=== PATIENT | female | born 1985 | race Native Hawaiian/Other Pacific Islander ===

== ENCOUNTER 2017-05-14 17:32 | Emergency (ER) | payer OTHER ==
--- NOTE | 2017-05-14 18:19 | ED ---
Female Urogenital HPI - General Chief complaint: Vaginal Bleeding Stated complaint: vag bleeding/poss Time Seen by Provider: 05/14/17 17:55 Source: patient Mode of arrival: ambulatory Limitations: no limitations - History of Present Illness Initial comments: Patient is a 31-year-old female, , who presents with a chief complaint of vaginal bleeding. Patient states that she recently delivered her last child 4 months ago. Her periods return to normal immediately after her delivery. For the last 3 months she has had normal periods. Her last menstrual period was and she states that over the started normally. Over the last month though she has been having increased bleeding, that has been worse over the last 3 days. Patient does not identify any aggravating or alleviating factors. Patient states that she has not had this happen to her before. Patient does have a recent diagnosis of rheumatoid arthritis, and states that she took a home test yesterday that was positive. Patient denies any anemic symptoms. She does admit to follow odor, but denies discharge MD Complaint: vaginal bleeding Onset/Timin -: month(s) Location: suprapubic Severity: moderate Quality: cramping Consistency: constant Improves with: none Worsens with: none Last Menstrual Period: 04/13/17 Patient : Yes (+ home preg 2 days ago ) Associated Symptoms: vaginal bleeding, abdominal pain - Related Data Sexually active: Yes Home Medications Medication Instructions Recorded Confirmed Cyclobenzaprine [Flexeril] 10 mg PO BID PRN 05/14/17 05/14/17 Meloxicam [Mobic] 15 mg PO DAILY 05/14/17 05/14/17 Multivit with Calcium,Iron,Min 1 tab PO DAILY 05/14/17 05/14/17 [Women's Multivitamin] Phentermine HCl [Adipex-P] 37.5 mg PO DAILY 05/14/17 05/14/17 Allergies Allergy/AdvReac Type Severity Reaction Status Date / Time No Known Allergies Allergy Verified 05/14/17 18:15 Review of Systems ROS Statement: Those systems with pertinent positive or pertinent negative responses have been documented in the HPI. ROS Other: All systems not noted in ROS Statement are negative. Constitutional: Denies: fever, chills Eyes: Denies: vision change ENT: Denies: ear pain, throat pain Respiratory: Denies: cough, dyspnea Cardiovascular: Denies: chest pain, palpitations Endocrine: Denies: fatigue Gastrointestinal: Reports: abdominal pain. Denies: nausea, vomiting Genitourinary: Reports: abnormal menses. Denies: dysuria Skin: Denies: rash, lesions Neurological: Denies: headache, weakness Past Medical History Past Medical History: No Reported History History of Any Multi-Drug Resistant Organisms: None Reported Past Surgical History: No Surgical Hx Reported Past Psychological History: No Psychological Hx Reported Smoking Status: Never smoker Past Alcohol Use History: None Reported Past Drug Use History: None Reported General Exam Limitations: no limitations General appearance: alert, in no apparent distress Head exam: Present: atraumatic, normocephalic Eye exam: Present: normal appearance ENT exam: Present: normal exam, mucous membranes moist Neck exam: Present: normal inspection Respiratory exam: Present: normal lung sounds bilaterally. Absent: respiratory distress, wheezes Cardiovascular Exam: Present: regular rate, normal rhythm, normal heart sounds GI/Abdominal exam: Present: soft, tenderness (Patient has tenderness in the suprapubic left and right regions.). Absent: distended, guarding Rectal exam: Present: deferred Extremities exam: Present: normal inspection Back exam: Present: normal inspection Neurological exam: Present: alert, oriented X3, CN II-XII intact, normal gait Psychiatric exam: Present: normal affect, normal mood Skin exam: Present: warm, dry, intact Course Vital Signs 05/14/17 17:48 Temperature 98.2 F Pulse Rate 89 Respiratory 20 Rate Blood Pressure 148/81 O2 Sat by Pulse 98 Oximetry Medical Decision Making - Medical Decision Making Patient is a 31-year-old female, , currently by home test who delivered her last child 4 months ago who presents with a chief complaint of vaginal bleeding on initial evaluation, vital signs are stable. Patient states she is bleeding through 1 pad a ladder every hour as of today. Patient will have a pelvic exam, we'll send basic lab work and hCG. Patient will get a liter of fluid, be sent for a pelvic ultrasound. Patient recently was diagnosed with rheumatoid arthritis and is currently being treated though she does not know if she is taking methotrexate or not. 8:53 PM Evaluation of this patient is unremarkable. Her beta hCG level is 43. Patient assures me that she is in fact taking methotrexate at this time. Pelvic ultrasound shows mild amount of free fluid in cul-de-sac, otherwise it was an unremarkable study. At this time, patient is stable for discharge. She was instructed to take Motrin and Tylenol for pain. She is instructed to follow up with [employer] on Wednesday to have her hCG redrawn. She is further instructed to return to the emergency department if her symptoms worsen or change in any way. Patient was treated empirically for gonorrhea and chlamydia, cultures were sent. At this time all of her questions were answered to the best of my ability. Patient is stable and agreeable with discharge. - Lab Data Result diagrams: 05/14/17 18:20 05/14/17 18:20 Lab Results 05/14/17 05/14/17 Range/Units 18:20 18:20 WBC 8.0 (3.8-10.6) k/uL RBC 4.57 (3.80-5.40) m/uL Hgb 13.1 (11.4-16.0) gm/dL Hct 39.9 (34.0-46.0) % MCV 87.2 (80.0-100.0) fL MCH 28.7 (25.0-35.0) pg MCHC 32.9 (31.0-37.0) g/dL RDW 15.1 (11.5-15.5) % Plt Count 259 (150-450) k/uL Neutrophils % 74 % Lymphocytes % 20 % Monocytes % 4 % Eosinophils % 1 % Basophils % 0 % Neutrophils # 5.9 (1.3-7.7) k/uL Lymphocytes # 1.6 (1.0-4.8) k/uL Monocytes # 0.3 (0-1.0) k/uL Eosinophils # 0.1 (0-0.7) k/uL Basophils # 0.0 (0-0.2) k/uL Sodium 142 (137-145) mmol/L Potassium 3.8 (3.5-5.1) mmol/L Chloride 107 (98-107) mmol/L Carbon Dioxide 22 (22-30) mmol/L Anion Gap 13 mmol/L BUN 12 (7-17) mg/dL Creatinine 0.80 (0.52-1.04) mg/dL Est GFR (MDRD) Af Amer >60 (>60 ml/min/1.73 sqM) Est GFR (MDRD) Non-Af >60 (>60 ml/min/1.73 sqM) Glucose 103 H (74-99) mg/dL Calcium 9.5 (8.4-10.2) mg/dL HCG, Quant 48.8 mIU/mL Disposition Clinical Impression: Dysfunctional uterine bleeding Disposition: HOME SELF-CARE Condition: Good Instructions: Dysfunctional Uterine Bleeding (ED), Menstruation (ED) Referrals: Kalina Smyth MD [Primary Care Provider] - 1-2 days
[2017-05-14] MEDS ORDERED: SODIUM CHLORIDE 0.9% 1,000 ML IV ONE (18:21)
[2017-05-14 18:30] LABS: Basophils % (A) 0 %; CH 29.8; CHCM 34.3; Eosinophils # (A) 0.1 k/uL (0-0.7); Eosinophils % (A) 1 %; HCT 39.9 % (34.0-46.0); HDW 2.78; HGB 13.1 gm/dL (11.4-16.0); Luc % (Auto) 1; Lymphocytes # (A) 1.6 k/uL (1.0-4.8); Lymphocytes % (A) 20 %; MCH 28.7 pg (25.0-35.0); MCHC 32.9 g/dL (31.0-37.0); MCV 87.2 fL (80.0-100.0); Mean Platelet Volume 7.9; Monocytes # (A) 0.3 k/uL (0-1.0); Monocytes % (A) 4 %; Neutrophils # (A) 5.9 k/uL (1.3-7.7); Neutrophils % (A) 74 %; RBC 4.57 m/uL (3.80-5.40); RDW 15.1 % (11.5-15.5); WBC (Perox) 8.47
[2017-05-14 18:37] LABS: Anion Gap 13 mmol/L; Blood Urea Nitrogen 12 mg/dL (7-17); Calcium 9.5 mg/dL (8.4-10.2); Carbon Dioxide 22 mmol/L (22-30); Chloride 107 mmol/L (98-107); Glucose 103 mg/dL (74-99); Non-African American GFR(MDRD) >60 (>60 ml/min/1.73 sqM); Potassium 3.8 mmol/L (3.5-5.1); Sodium 142 mmol/L (137-145)
[2017-05-14] MEDS ORDERED: KETOROLAC 30 MG/ML 1 ML VIAL IVP STA (19:12)
--- NOTE | 2017-05-14 20:44 | US ---
EXAMINATION TYPE: US OB <=14 wks transvag DATE OF EXAM: 05/14/2017 COMPARISON: NONE CLINICAL HISTORY: Pain. Positive urine test today. Cramping, bleeding x one month. Starti ng passing clots. Hx of delivery of baby x 5 months ago via csection. EXAM PERFORMED: Transvaginal (TV) and Transabdominal (TA) EXAM MEASUREMENTS: GESTATIONAL AGE / DATING Dates by LMP: 5 weeks 3 days Dates by Current Scan for: No IUP seen at this time MATERNAL ANATOMY Uterus: 10.3 x 5.9 x 4.3 cm Right Ovary: 3.0 x 1.7 x 1.8 cm Left Ovary: 3.5 x 1.7 x 1.5 cm Post CDS / Adnexa: free fluid in posterior cul de sac GESTATION / SURVEY MSD: No gestational sac seen IUP: No IUP seen at this time Date of LMP: 04/06/2017 Beta HcG (if available): 48.8 IMPRESSION: NO GESTATIONAL SAC, YOLK SAC, OR EMBRYONIC POLE SEEN AT THIS TIME.
[2017-05-14] MEDS ORDERED: cefTRIAXone 250 MG VIAL IM STA (20:47)
[2017-05-14] MEDS ORDERED: AZITHROMYCIN 500 MG TAB PO STA (20:47)
[2017-05-14 21:10] VITALS: BP 142/87; PULSE 80; RESP 18; TEMP 97.8
== END 2017-05-14 21:09 | disposition home or self-care (01) ==
LOC: EC 17:32
DX: N93.8 Other specified abnormal uterine and vaginal bleeding (principal); Z79.1 Long term (current) use of non-steroidal anti-inflammatories (NSAID); Z79.899 Other long term (current) drug therapy
CPT/HCPCS: 99284; 96374; 96372; 36415; 80048; 87591; 87491; 85025; 84702; 76801; 76817; J0696; J1885

== ENCOUNTER 2017-12-02 09:15 | Emergency (ER) | payer BC, OTHER ==
[2017-12-02 09:18] VITALS: TEMP 98.1
[2017-12-02] MEDS ORDERED: KETOROLAC 60 MG/2 ML VIAL IM STA (09:29)
[2017-12-02] MEDS ORDERED: CYCLOBENZAPRINE 10MG STARTER 3 TAB BTL PO STA (09:29)
--- NOTE | 2017-12-02 09:33 | ED ---
General Adult HPI - General Chief complaint: Back Pain/Injury Stated complaint: back pain Time Seen by Provider: 12/02/17 09:19 Source: patient, RN notes reviewed Mode of arrival: ambulatory Limitations: no limitations - History of Present Illness Initial comments: Patient 32-year-old female presenting to the emergency room today with a chief complaint of increased lower back pain over the last several weeks. Denies any injury or trauma. Does admit to pain that radiates down the left leg all the way to the ankle. Patient denies any bowel or bladder incontinence retention. She denies any saddle anesthesia. Patient states pain is worse with certain movements into [place] of ambulation. Patient states more comfortable when she is lying still but says she has had a difficult time falling asleep due to the pain. Patient denies any other complaints. Says she did not take anything for the pain this morning. Patient denies any recent fever, chills, shortness of breath, chest pain, abdominal pain, nausea or vomiting, dysuria or hematuria, constipation or diarrhea, headaches or visual changes, or any other complaints. - Related Data Home Medications Medication Instructions Recorded Confirmed Cyclobenzaprine [Flexeril] 10 mg PO BID PRN 05/14/17 05/14/17 Meloxicam [Mobic] 15 mg PO DAILY 05/14/17 05/14/17 Multivit with Calcium,Iron,Min 1 tab PO DAILY 05/14/17 05/14/17 [Women's Multivitamin] Phentermine HCl [Adipex-P] 37.5 mg PO DAILY 05/14/17 05/14/17 Previous Rx's Medication Instructions Recorded Cyclobenzaprine [Flexeril] 10 mg PO TID #20 tab 12/02/17 Dexamethasone 0.75 mg PO DIRECTED #12 tablet 12/02/17 Ibuprofen [Motrin] 600 mg PO Q6HR PRN #40 day 12/02/17 Allergies Allergy/AdvReac Type Severity Reaction Status Date / Time No Known Allergies Allergy Verified 12/02/17 09:18 Review of Systems ROS Statement: Those systems with pertinent positive or pertinent negative responses have been documented in the HPI. ROS Other: All systems not noted in ROS Statement are negative. Past Medical History Past Medical History: No Reported History History of Any Multi-Drug Resistant Organisms: None Reported Past Surgical History: No Surgical Hx Reported Past Psychological History: No Psychological Hx Reported Smoking Status: Current every day smoker Past Alcohol Use History: None Reported Past Drug Use History: None Reported General Exam - General Exam Comments Initial Comments: General: The patient is awake and alert, in no distress, and does not appear acutely ill. Eye: Pupils are equal, round and reactive to light, extra-ocular movements are intact. No nystagmus. There is normal conjunctiva bilaterally. No signs of icterus. Ears, nose, mouth and throat: There are moist mucous membranes and no oral lesions. Neck: The neck is supple, there is no tenderness or JVD. Cardiovascular: There is a regular rate and rhythm. No murmur, rub or gallop is appreciated. Respiratory: Lungs are clear to auscultation, respirations are non-labored, breath sounds are equal. No wheezes, stridor, rales, or rhonchi. Musculoskeletal: Normal ROM. Patient pain reproduced with bending here in the emergency room. Patient mild tenderness midline lower lumbar with increased tenderness paravertebrally on the left side of the lower lumbar spine. Strength 5/5. Sensation intact. Pulses equal bilaterally 2+. Neurological: A&O x 3. CN II-XII intact, There are no obvious motor or sensory deficits. Coordination appears grossly intact. Speech is normal. Skin: Skin is warm and dry and no rashes or lesions are noted. Psychiatric: Cooperative, appropriate mood & affect, normal judgment. Limitations: no limitations Course Vital Signs 12/02/17 09:17 Temperature 98.1 F Pulse Rate 90 Respiratory 20 Rate Blood Pressure 117/71 O2 Sat by Pulse 100 Oximetry Medical Decision Making - Medical Decision Making Patient denies any injury or trauma. Presenting for lower back pain. Patient states worse with movements. No bowel or bladder incontinence. No saddle anesthesia. Options of x-rays were discussed. Options of following up with family physician for MRI was discussed at this time patient agreeable for pain shot here in emergency room. Will be given Toradol also Flexeril starter pack. Will be treated with anti-inflammatories, muscle relaxers, and a steroid Dosepak. Advised that muscle relaxer may make her drowsy. Advised about the family physician next 2 days. Advised return if symptoms increase or worsen Disposition Clinical Impression: Acute low back pain Disposition: HOME SELF-CARE Condition: Good Instructions: Acute Low Back Pain (ED) Additional Instructions: Please use medication as discussed. Please follow-up with family doctor in the next 2 days of symptoms have not improved. Please return to emergency room if the symptoms increase or worsen or for any other concerns. Prescriptions: Cyclobenzaprine [Flexeril] 10 mg PO TID #20 tab Dexamethasone 0.75 mg PO DIRECTED #12 tablet Ibuprofen [Motrin] 600 mg PO Q6HR PRN #40 day PRN Reason: Pain Referrals: Kalina Smyth MD [Primary Care Provider] - 1-2 days Time of Disposition: 09:32
[2017-12-02 09:54] VITALS: BP 123/74; PULSE 77; RESP 18
== END 2017-12-02 09:54 | disposition home or self-care (01) ==
LOC: EC 09:15
DX: M54.5 Low back pain (principal); F17.200 Nicotine dependence, unspecified, uncomplicated; Z79.1 Long term (current) use of non-steroidal anti-inflammatories (NSAID); Z79.899 Other long term (current) drug therapy
CPT/HCPCS: 99283; J1885

== ENCOUNTER 2017-12-05 11:40 | Emergency (ER) | payer BC ==
[2017-12-05 11:45] VITALS: BP 121/76; PULSE 96; RESP 20; TEMP 98.3
--- NOTE | 2017-12-05 12:10 | ED ---
Lower Extremity Injury HPI - General Chief Complaint: Extremity Injury, Lower Stated Complaint: revisit Left leg swelling Time Seen by Provider: 12/05/17 12:00 Source: patient, RN notes reviewed, old records reviewed Mode of arrival: ambulatory Limitations: no limitations - History of Present Illness Initial Comments: This patient is a 32-year-old female presents to emergency Department chief complaint of left lower extremity pain and swelling. Patient reports that she was started on steroids and muscle relaxers which initially started as lower back pain. She reports that her back pain as a result that she complains of pain in her left calf. She reports that she has ankle pain and swelling. Patient relates that she is a smoker. She does not take control pills. She's had no history of blood clots. Patient states that she has pain behind the knee. She also reports it's difficult to bear weight over her ankle and knee. She denies any specific injury to cause the symptoms. 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 She states that she's been having a difficult time with any walking. Patient reports she followed up with her primary care doctor and they reported they live in a can do is referred to an orthopedic. She had no x-rays or any other studies at this time. - Related Data Previous Rx's Medication Instructions Recorded Cyclobenzaprine [Flexeril] 10 mg PO TID #20 tab 12/02/17 Dexamethasone 0.75 mg PO DIRECTED #12 tablet 12/02/17 Ibuprofen [Motrin] 600 mg PO Q6HR PRN #40 day 12/02/17 Ibuprofen [Motrin] 600 mg PO Q8HR PRN #20 tab 12/05/17 traMADol HCl [Ultram] 50 mg PO Q6H PRN #15 tab 12/05/17 Allergies Allergy/AdvReac Type Severity Reaction Status Date / Time No Known Allergies Allergy Verified 12/05/17 11:45 Review of Systems ROS Statement: Those systems with pertinent positive or pertinent negative responses have been documented in the HPI. ROS Other: All systems not noted in ROS Statement are negative. Past Medical History Past Medical History: No Reported History History of Any Multi-Drug Resistant Organisms: None Reported Past Surgical History: Section, Cholecystectomy Past Psychological History: No Psychological Hx Reported Smoking Status: Current every day smoker Past Alcohol Use History: Occasional Past Drug Use History: None Reported General Exam - General Exam Comments Initial Comments: Patient's 32-year-old female. Alert and oriented. No distress. Limitations: no limitations General appearance: alert, in no apparent distress Head exam: Present: atraumatic, normocephalic, normal inspection Eye exam: Present: normal appearance, PERRL, EOMI. Absent: scleral icterus, conjunctival injection, periorbital swelling ENT exam: Present: normal exam, mucous membranes moist Neck exam: Present: normal inspection. Absent: tenderness, meningismus, lymphadenopathy Respiratory exam: Present: normal lung sounds bilaterally. Absent: respiratory distress, wheezes, rales, rhonchi, stridor Cardiovascular Exam: Present: regular rate, normal rhythm, normal heart sounds. Absent: systolic murmur, diastolic murmur, rubs, gallop, clicks Left Upper Leg exam: Present: normal inspection, full ROM Knee exam: Present: normal inspection, tenderness (Tenderness to palpation over the medial aspect of the knee. She reports pain with full extension.). Absent : full ROM ( reports that she's unable to fully extend the knee due to pain.) Lower Leg exam: Present: normal inspection, full ROM, tenderness (Tenderness over the posterior calf and popliteal fossa.) Ankle exam: Present: normal inspection, full ROM Foot/Toe exam: Present: normal inspection, full ROM Neurovascular tendon exam: Present: no vascular compromise Gait: observed and limited by pain Back exam: Present: normal inspection Neurological exam: Present: alert, oriented X3, CN II-XII intact Psychiatric exam: Present: normal affect, normal mood Course Vital Signs 12/05/17 11:42 Temperature 98.3 F Pulse Rate 96 Respiratory 20 Rate Blood Pressure 121/76 O2 Sat by Pulse 100 Oximetry Medical Decision Making - Medical Decision Making 32-year-old feel presents emergency Department chief complaint of left leg pain. She reports posterior calf pain. Worse with ambulation. Patient's ultrasound was reviewed and negative for DVT. X-rays of the knee and ankle where she complains of most pain are also negative for any acute process. She' s been started, also flexes and steroids from her primary care provider. Discussed adding anti-inflammatory medication such as Motrin and will write patient a short prescription for pain medication. We'll put the patient in [place] wrap as well for support and compression of the ankle. Discussed following up with orthopedic if symptoms are continuing to persist. All questions answered and return parameters were discussed. - Radiology Data Radiology results: report reviewed Venous Doppler study is negative for DVT. The x-ray was reviewed and unremarkable. Ankle x-ray was reviewed and also unremarkable. No evidence of osseous changes. Disposition Clinical Impression: Ankle pain, left, Knee pain, left Disposition: HOME SELF-CARE Condition: Good Instructions: Knee Pain (ED) Additional Instructions: Patient advised to take anti-inflammatory medication, use the pain medicine as directed. Follow-up with orthopedic. Wear the [place] wrap. Rest, ice, elevate extremity. Prescriptions: Ibuprofen [Motrin] 600 mg PO Q8HR PRN #20 tab PRN Reason: Pain traMADol HCl [Ultram] 50 mg PO Q6H PRN #15 tab PRN Reason: Pain Referrals: Kalina Smyth MD [REFERRING] - 1-2 days Lary Hamlin MD [STAFF PHYSICIAN] - 1-2 days Papito Becker MD [STAFF PHYSICIAN] - 1-2 days Yariel Verduzco MD [STAFF PHYSICIAN] - 1-2 days Time of Disposition: 13:08
--- NOTE | 2017-12-05 13:03 | US ---
EXAMINATION TYPE: US venous doppler duplex LE LT DATE OF EXAM: 12/05/2017 12:34 PM COMPARISON: NONE CLINICAL HISTORY: Pain. Left leg pain x couple weeks SIDE PERFORMED: Left TECHNIQUE: The lower extremity deep venous system is examined utilizing real time linear array sonog jessica with graded compression, doppler sonography and color-flow sonography. VESSELS IMAGED: External Iliac Vein (EIV) Common Femoral Vein Deep Femoral Vein Greater Saphenous Vein * Femoral Vein Popliteal Vein Small Saphenous Vein * Proximal Calf Veins (* superficial vessels) Left Leg: Appears negative for DVT No popliteal fossa lesion is seen. IMPRESSION: THIS EXAMINATION IS NEGATIVE FOR DVT IN THE LEFT LEG.
--- NOTE | 2017-12-05 13:04 | XR ---
EXAMINATION TYPE: XR ankle complete LT , 3 VIEWS DATE OF EXAM ORDERED: 12/05/2017 HISTORY: Pain. COMPARISON: None. FINDINGS: No fracture, dislocation or ankle joint effusion is seen. IMPRESSION: NORMAL LEFT ANKLE.
--- NOTE | 2017-12-05 13:05 | XR ---
EXAMINATION TYPE: XR knee complete LT , 3 VIEWS DATE OF EXAM ORDERED: 12/05/2017 HISTORY: Pain. COMPARISON: None. FINDINGS: No fracture, dislocation or knee joint effusion is seen. The joint spaces are reasonably w ell-maintained. IMPRESSION: NO ACUTE OSSEOUS LESION.
== END 2017-12-05 13:20 | disposition home or self-care (01) ==
LOC: EC 11:40
DX: M25.572 Pain in left ankle and joints of left foot (principal); M25.562 Pain in left knee; F17.200 Nicotine dependence, unspecified, uncomplicated
CPT/HCPCS: 99284

== ENCOUNTER → 2018-11-04 | Outpatient (CLI) | payer BC, OTHER ==
[2018-11-04 15:34] LABS: Appearance,Urine Cloudy (Clear); Bacteria,Urine Occasional /hpf; Bilirubin,Urine Negative (Negative); Blood,Urine Negative (Negative); Budding Yeast,Urine Few /hpf; Color,Urine Yellow; Glucose,Urine (UA) Negative (Negative); Hyaline Casts,Urine 2 /lpf (0-2); Ketones,Urine Negative (Negative); Leukocyte Esterase,Urine Large (Negative); Mucus,Urine Rare /hpf; Nitrite,Urine Negative (Negative); PH, Urine 7.5 (5.0-8.0); Protein,Urine 1+ (Negative); RBC,Urine 10 /hpf (0-5); Specific Gravity,Urine 1.011 (1.001-1.035); Squamous Epithelial Cell,Urine 4 /hpf (0-4); Urobilinogen,Urine <2.0 mg/dL (<2.0); WBC,Urine >182 /hpf (0-5)
[2018-11-04 15:47] LABS: Calcium 9.3 mg/dL (8.4-10.2); Potassium 4.3 mmol/L (3.5-5.1)
[2018-11-04 16:38] LABS: Anisocytosis Slight; Basophils % (A) 1 %; Eosinophils # (A) 0.1 k/uL (0-0.7); Eosinophils % (A) 1 %; HGB 9.7 gm/dL (11.4-16.0); Hypochromasia Slight; Lymphocytes # (A) 1.3 k/uL (1.0-4.8); Lymphocytes % (A) 26 %; MCH 24.8 pg (25.0-35.0); MCHC 29.5 g/dL (31.0-37.0); MCV 84.3 fL (80.0-100.0); Monocytes # (A) 0.2 k/uL (0-1.0); Monocytes % (A) 4 %; Neutrophils # (A) 3.4 k/uL (1.3-7.7); Neutrophils % (A) 66 %; Platelet Count 537 k/uL (150-450); RBC 3.92 m/uL (3.80-5.40); RDW 16.8 % (11.5-15.5); WBC 5.1 k/uL (3.8-10.6)
== END ==
LOC: LABPAT 14:53
PROVIDERS: ATTEND Urology
DX: Z01.812 Encounter for preprocedural laboratory examination (principal); N20.1 Calculus of ureter
CPT/HCPCS: 80048; 81001; 85025; 87077; 87086; 87186

== ENCOUNTER 2018-11-24 08:57 | Day surgery (SDC) | payer OTHER ==
[~2018-11-24 08:57] MED LIST: CIPROFLOXACIN/DEXTROSE PMX 400 MG in DEXTROSE/WATER 1 200ML.BAG IVPB ONE; DEXAMETHASONE SOD PHOSPHATE 10 MG/ML 1 ML VIAL IV ONE; HYDROmorphone 0.5 MG/0.5 ML SYRINGE IVP PRN; LACTATED RINGERS 1,000 ML IV SCH; LIDOCAINE 1% 20 ML VIAL (10MG/ML) FOR IV START INTRADERMA PRN; MIDAZOLAM 2 MG/2 ML VIAL IV PRN; ONDANSETRON 4 MG/2 ML VIAL IVP ONE; SCOPOLAMINE 1.5MG/72HR PATCH TRANSDERM ONE
--- NOTE | 2018-11-24 09:35 | XR ---
EXAMINATION TYPE: XR KUB DATE OF EXAM: 11/24/2018 9:25 AM CLINICAL HISTORY: Kidney stones, presurgical study. TECHNIQUE: Two Upright KUB images of the abdomen are obtained. COMPARISON: None. FINDINGS: There is left double-J ureter stent. There is 8 mm calculus along proximal aspect of stent likely at UVJ. There is 4 mm calculus lateral to this at L2 level mid to lower pole level left kidney . There are suspected roughly 10 small calculi scattered throughout the right kidney from T12-L1 disc space to the L2-L3 disc space. Overlying fecal material is present in colon. There is overall nonobstructive bowel gas pattern. Osse ous structures are intact. Cholecystectomy clips are noted. IMPRESSION: Bilateral nephrolithiasis with left-sided 8 mm calculus along proximal stent near level o f UPJ.
[2018-11-24 11:20] VITALS: RESP 16
[2018-11-24] MEDS ORDERED: PROPOFOL 10 MG/ML 20 ML VIAL IV ONE (12:01)
[2018-11-24] MEDS ORDERED: LIDOCAINE 1% INJ 10MG/ML (20 ML MDV) ONE (12:01)
[2018-11-24] MEDS ORDERED: NEOSTIGMINE 1 MG/ML 10 ML VIAL ONE (12:01)
[2018-11-24] MEDS ORDERED: GLYCOPYRROLATE 0.2 MG/ML 2 ML VIAL ONE (12:01)
[2018-11-24] MEDS ORDERED: fentaNYL (PF) 50 MCG/ML 2 ML AMP ONE (12:01)
[2018-11-24] MEDS ORDERED: MIDAZOLAM 2 MG/2 ML VIAL ONE (12:01)
[2018-11-24] MEDS ORDERED: ROCURONIUM BROMIDE 10 MG/ML 10 ML VIAL IV ONE (12:01)
--- NOTE | 2018-11-24 13:16 | P.OP ---
Date of Procedure: 11/24/18 Preoperative Diagnosis: Left ureteral calculus, left renal calculi Postoperative Diagnosis: Same Procedure(s) Performed: Cystoscopy, left ureteral stent removal, left ureteroscopy with Holmium laser lithotripsy Anesthesia: KEEGAN Surgeon: Jean Carlos Nj Estimated Blood Loss (ml): 0 IV fluids (ml): 650 Pathology: none sent Condition: stable Disposition: PACU Indications for Procedure: The patient is a 32-year-old woman hospitalized earlier this month with acute left pyelonephritis complicated by a 7 mm left proximal ureteral calculus. Additionally, the computed tomography scan showed approximately 9 left renal calculi. She underwent left ureteral stent insertion on 09/02/2018. A urine culture showed an E. coli UTI, for which she has been treated with antibiotics. She now comes for cystoscopy, left ureteral stent removal, left ureteroscopy with Holmium laser lithotripsy. A preoperative urine culture again showed an E. coli UTI, and Keflex was prescribed. Operative Findings: 4 x 8 mm left proximal ureteral calculus, fragmented completely. Several small left renal calculi were identified and fragmented. Description of Procedure: The patient was taken to the operating room and placed in the dorsolithotomy position, with legs supported in Jimmie stirrups. The external genitalia was prepped and draped sterilely. The 30 lens was used to introduce the 22-Micronesian Stortz cystoscopic sheath through the urethra and into the bladder under direct vision. The bladder was examined in its entirety. No abnormalities were seen. The distal end of the left ureteral stent was removed along with the cystoscope. The cystoscope was replaced into the bladder. A 0.038 inch Glidewire was passed through the cystoscope. The left ureteral orifice was cannulated, and the Glidewire was advanced beyond the calculus and up to the left renal pelvis. The cystoscope was removed, and an 11/13-Micronesian ureteral access catheter was passed over the wire, up to the mid ureter. The mini flexible ureteroscope was passed through the ureteral access catheter sheath and advanced under direct vision, up to the calculus. Ureteral dilation in this area was noted. The 200 micron Holmium laser probe was passed through the ureteroscope, and lithotripsy was performed using a dusting technique. This was continued until there were no calculus fragments exceeding the size of the laser tip. The ureteroscope was then advanced into the kidney, and several small calculi were fragmented. Once all calculi had been treated, the ureteroscope was slowly withdrawn under direct vision along with the ureteral access catheter sheath. There was no evidence of ureteral trauma, and no calculus fragments were taken within the ureter. The patient tolerated the procedure well and was taken to the recovery room in stable condition.
[2018-11-24 13:26] VITALS: TEMP 98.5
[2018-11-24] MEDS ORDERED: LACTATED RINGERS 1,000 ML IV ONE (14:08)
[2018-11-24] MEDS ORDERED: ACETAMINOPHEN TAB 325 MG TAB PO ONE (14:29)
--- NOTE | 2018-11-24 14:32 | FL ---
EXAMINATION TYPE: FL guidance operating room DATE OF EXAM: 11/24/2018 CLINICAL HISTORY: Left kidney stone. TECHNIQUE: Fluoroscopy. COMPARISON: None. FINDINGS: Fluoroscopic guidance was provided during lithotripsy procedure performed by Dr. Nj. A total of approximately 5 seconds of fluoroscopic time was utilized during the procedure and single spot intraoperative image is acquired. Single image acquired shows advancement of guidewire through t he catheter in left ureter. IMPRESSION: As Above.
[2018-11-24 14:37] VITALS: BP 149/91; PULSE 88
== END 2018-11-24 14:51 | disposition home or self-care (01) ==
LOC: OR 08:57
PROVIDERS: ATTEND Urology
DX: N20.2 Calculus of kidney with calculus of ureter (principal); T83.511A Infection and inflammatory reaction due to indwelling urethral catheter, initial encounter; Z79.3 Long term (current) use of hormonal contraceptives; F17.210 Nicotine dependence, cigarettes, uncomplicated; Z90.49 Acquired absence of other specified parts of digestive tract; Z87.440 Personal history of urinary (tract) infections
CPT/HCPCS: 81025; 74018; 52353; J2250; J1100; J2710; J2405; J2001; J3010; J0744; J2704

== ENCOUNTER 2020-05-13 03:06 | Observation (INO) | payer OTHER ==
--- NOTE | 2020-05-13 03:39 | ED ---
Female Urogenital HPI - General Chief complaint: Vaginal Bleeding Stated complaint: vaginal bleeding Time Seen by Provider: 05/13/20 03:07 Source: patient Mode of arrival: ambulatory - History of Present Illness Initial comments: Yudith is a female whose last menstrual period was in February 09, 2020. Patient presents the ER today for evaluation of 2 weeks of vaginal bleeding and pelvic discomfort. Patient states that she had not taken a test or establish care but approximately 2 weeks ago began having cramping and passing large clots and believes she passed products of conception. She states that vaginal bleeding got better for a couple of days but worsened today which prompted her to seek care at an outside emergency Department. Patient reports that earlier today she is soaking one to 2 pads per hour. Evaluation that emergency department revealed a closed cervical os with blood clots in the vaginal canal. Due to not having gynecology available for consult they recommended the patient be transferred to our facility for further evaluation. Patient states that this wasn't intended with her partner she has no concern for sexual transmitted infections. - Related Data Home Medications Medication Instructions Recorded Confirmed Medroxyprogesterone Acetate 150 mg IM DIRECTED 11/09/18 11/24/18 [Depo-Provera] Allergies Allergy/AdvReac Type Severity Reaction Status Date / Time No Known Allergies Allergy Verified 05/13/20 03:12 Review of Systems ROS Statement: Those systems with pertinent positive or pertinent negative responses have been documented in the HPI. ROS Other: All systems not noted in ROS Statement are negative. Past Medical History Past Medical History: No Reported History Additional Past Medical History / Comment(s): Hx of and current kidney stones. History of Any Multi-Drug Resistant Organisms: None Reported Past Surgical History: Section, Cholecystectomy Past Anesthesia/Blood Transfusion Reactions: No Reported Reaction Past Psychological History: No Psychological Hx Reported Smoking Status: Current every day smoker Past Alcohol Use History: None Reported Past Drug Use History: None Reported - Past Family History Mother Family Medical History: No Reported History General Exam - General Exam Comments Initial Comments: Physical Exam GENERAL: Patient is well-developed and well-nourished. Patient is nontoxic and well-hydrated and is in no distress. HENT: Normocephalic, Atraumatic. EYES: PERRL, EOMI No conjunctival pallor PULMONARY: Unlabored respirations. CARDIOVASCULAR: RRR Warm and well perfused extremities ABDOMEN: Non-distended SKIN: No rashes or bruising : Deferred - pelvic exam performed at previous ER NEUROLOGIC: Alert and oriented Normal speech Normal gait MUSCULOSKELETAL: Moving all extremities with no apparent injury PSYCHIATRIC: Appropriate situational depression, crying Course Vital Signs 05/13/20 03:08 Temperature 98.1 F Pulse Rate 96 Respiratory 18 Rate Blood Pressure 142/92 O2 Sat by Pulse 100 Oximetry Medical Decision Making - Medical Decision Making Patient care was discussed with transferring physician, he performed a pelvic exam which did reveal dark blood in the vaginal canal with a closed os, he did not perform any further testing due to not having gynecology available consult History is obtained from the patient 34-year-old female with last menstrual period of February 08 resenting with 2 weeks of vaginal bleeding which has acutely worsened today. Patient does believe she is arty passed products of conception approximately 2 weeks ago when she was nearly 12 weeks . CBC and CMP are relatively unremarkable patient is not anemic at this time Patient's beta hCG is still elevated at >3900 Ultrasound is concerning for a missed AB Patient has persistent cramping discomfort was treated with morphine with minimal improvement therefore given a small dose of Dilaudid Patient care was discussed with Dr. Calvo who recommends patient patient in observation for a D&C later today, this plan was discussed with the patient who is agreeable At the time of admission patient's ABO blood type is pending and no previous were available in the computer for confirmation. Need for Olena will be followed up by Dr. Calvo. - Lab Data Result diagrams: 05/13/20 03:20 05/13/20 03:20 Lab Results 05/13/20 05/13/20 05/13/20 Range/Units 03:20 03:20 03:20 WBC 10.5 (3.8-10.6) k/uL RBC 4.77 (3.80-5.40) m/uL Hgb 13.1 (11.4-16.0) gm/dL Hct 40.9 (34.0-46.0) % MCV 85.7 (80.0-100.0) fL MCH 27.5 (25.0-35.0) pg MCHC 32.1 (31.0-37.0) g/dL RDW 14.8 (11.5-15.5) % Plt Count 275 (150-450) k/uL Neutrophils % 71 % Lymphocytes % 23 % Monocytes % 4 % Eosinophils % 1 % Basophils % 0 % Neutrophils # 7.4 (1.3-7.7) k/uL Lymphocytes # 2.4 (1.0-4.8) k/uL Monocytes # 0.4 (0-1.0) k/uL Eosinophils # 0.1 (0-0.7) k/uL Basophils # 0.0 (0-0.2) k/uL PT 10.2 (9.0-12.0) sec INR 1.0 (<1.2) APTT 25.5 (22.0-30.0) sec Sodium (137-145) mmol/L Potassium (3.5-5.1) mmol/L Chloride (98-107) mmol/L Carbon Dioxide (22-30) mmol/L Anion Gap mmol/L BUN (7-17) mg/dL Creatinine (0.52-1.04) mg/dL Est GFR (CKD-EPI)AfAm (>60 ml/min/1.73 sqM) Est GFR (CKD-EPI)NonAf (>60 ml/min/1.73 sqM) Glucose (74-99) mg/dL Plasma Lactic Acid Gal (0.7-2.0) mmol/L Calcium (8.4-10.2) mg/dL Total Bilirubin (0.2-1.3) mg/dL AST (14-36) U/L ALT (4-34) U/L Alkaline Phosphatase (38-126) U/L Total Protein (6.3-8.2) g/dL Albumin (3.5-5.0) g/dL HCG, Quant mIU/mL Urine Color Red Urine Appearance Bloody H (Clear) Urine RBC >182 H (0-5) /hpf Urine WBC >182 H (0-5) /hpf Urine Bacteria Many H (None) /hpf Urine Mucus Many H (None) /hpf 05/13/20 05/13/20 Range/Units 03:20 03:20 WBC (3.8-10.6) k/uL RBC (3.80-5.40) m/uL Hgb (11.4-16.0) gm/dL Hct (34.0-46.0) % MCV (80.0-100.0) fL MCH (25.0-35.0) pg MCHC (31.0-37.0) g/dL RDW (11.5-15.5) % Plt Count (150-450) k/uL Neutrophils % % Lymphocytes % % Monocytes % % Eosinophils % % Basophils % % Neutrophils # (1.3-7.7) k/uL Lymphocytes # (1.0-4.8) k/uL Monocytes # (0-1.0) k/uL Eosinophils # (0-0.7) k/uL Basophils # (0-0.2) k/uL PT (9.0-12.0) sec INR (<1.2) APTT (22.0-30.0) sec Sodium 136 L (137-145) mmol/L Potassium 3.8 (3.5-5.1) mmol/L Chloride 102 (98-107) mmol/L Carbon Dioxide 26 (22-30) mmol/L Anion Gap 8 mmol/L BUN 16 (7-17) mg/dL Creatinine 1.34 H (0.52-1.04) mg/dL Est GFR (CKD-EPI)AfAm 59 (>60 ml/min/1.73 sqM) Est GFR (CKD-EPI)NonAf 51 (>60 ml/min/1.73 sqM) Glucose 109 H (74-99) mg/dL Plasma Lactic Acid Gal 0.7 (0.7-2.0) mmol/L Calcium 9.8 (8.4-10.2) mg/dL Total Bilirubin 0.4 (0.2-1.3) mg/dL AST 33 (14-36) U/L ALT 33 (4-34) U/L Alkaline Phosphatase 109 (38-126) U/L Total Protein 7.9 (6.3-8.2) g/dL Albumin 5.0 (3.5-5.0) g/dL HCG, Quant 3908.0 mIU/mL Urine Color Urine Appearance (Clear) Urine RBC (0-5) /hpf Urine WBC (0-5) /hpf Urine Bacteria (None) /hpf Urine Mucus (None) /hpf Disposition Clinical Impression: Missed Disposition: ADMITTED IP TO THIS HOSP Condition: Stable Is patient prescribed a controlled substance at d/c from ED?: No Referrals: None,Stated [Primary Care Provider] - 1-2 days
[2020-05-13 03:47] LABS: Basophils % (A) 0 %; Eosinophils # (A) 0.1 k/uL (0-0.7); Eosinophils % (A) 1 %; HCT 40.9 % (34.0-46.0); HGB 13.1 gm/dL (11.4-16.0); Lymphocytes # (A) 2.4 k/uL (1.0-4.8); Lymphocytes % (A) 23 %; MCH 27.5 pg (25.0-35.0); MCHC 32.1 g/dL (31.0-37.0); MCV 85.7 fL (80.0-100.0); Mean Platelet Volume 7.7; Monocytes # (A) 0.4 k/uL (0-1.0); Monocytes % (A) 4 %; Neutrophils # (A) 7.4 k/uL (1.3-7.7); Neutrophils % (A) 71 %; Platelet Count 275 k/uL (150-450); RBC 4.77 m/uL (3.80-5.40); RDW 14.8 % (11.5-15.5); WBC 10.5 k/uL (3.8-10.6)
[2020-05-13 03:50] LABS: Appearance,Urine Bloody (Clear); Color,Urine Red
[2020-05-13 04:00] LABS: Bacteria,Urine Many /hpf; Mucus,Urine Many /hpf; RBC,Urine >182 /hpf (0-5); WBC,Urine >182 /hpf (0-5)
[2020-05-13 04:02] LABS: Partial Thromboplastin Time 25.5 sec (22.0-30.0); Prothrombin Time 10.2 sec (9.0-12.0)
[2020-05-13 04:05] LABS: Calcium 9.8 mg/dL (8.4-10.2); Potassium 3.8 mmol/L (3.5-5.1); Total Bilirubin 0.4 mg/dL (0.2-1.3); Total Protein 7.9 g/dL (6.3-8.2)
[2020-05-13] MEDS ORDERED: MORPHINE SULFATE 4 MG/ML SYRINGE IVP STA (04:12)
--- NOTE | 2020-05-13 04:38 | US ---
EXAMINATION TYPE: Transabdominal DATE OF EXAM: 05/13/2020 4:09 AM COMPARISON: NONE CLINICAL HISTORY: bleeding s/p second trimester ab last week. Bleeding and cramping x 1 to 2 weeks th at has gotten worse in the past day, 6, para 5, history of . EXAM PERFORMED: Transabdominal (TA) EXAM MEASUREMENTS: GESTATIONAL AGE / DATING Physician Established: Not established yet Dates by LMP: (13 weeks/3 days) EDC: 11/15/2020 Dates by First Scan: This is 1st scan Dates by Current Scan for: No pole seen at this time MATERNAL ANATOMY Uterus: 11.0 x 6.1 x 6.5cm, anteverted Endometrium: thickened at 1.9cm, heterogeneous with increased vascularity and 3.9 x 1.4 x 2.1cm anech oic area seen ? possible gestational sac vs. blood vs. other Right Ovary: 2.5 x 1.7 x 3.0cm Left Ovary: 2.6 x 1.6 x 2.2cm Post CDS / Adnexa: wnl Presence of free fluid: no Presence of corpus luteal cyst: not seen Presence of subchorionic bleed: no GESTATION / SURVEY No pole or yolk sac seen possible MSD: 2.5cm (7 weeks/1 days) Date of LMP: 02/09/2020 Beta HcG (if available): Not available at time of exam IMPRESSION: There is irregular intrauterine fluid collection. No yolk sac or pole seen. No adnexal mass or free fluid. Findings are consistent with blighted ovum and incomplete .
[2020-05-13] MEDS ORDERED: NALOXONE 0.4 MG/ML 1 ML VIAL IV PRN (04:46)
[2020-05-13] MEDS ORDERED: MORPHINE SULFATE 4 MG/ML SYRINGE IV PRN (04:46)
[2020-05-13] MEDS ORDERED: ONDANSETRON 4 MG/2 ML VIAL IVP PRN (04:46)
[2020-05-13] MEDS ORDERED: HYDROmorphone 0.5 MG/0.5 ML SYRINGE IVP STA (04:50)
[2020-05-13] MEDS ORDERED: SODIUM CHLORIDE 0.9% 1,000 ML IV SCH (05:00)
--- NOTE | 2020-05-13 08:29 | P.OBCN ---
History of Present Illness Consult date: 05/13/20 Reason for consult: other (Early loss vaginal bleeding, elevated pain) Chief complaint: Missed AB versus blighted ovum History of present illness: This is a 34-year-old 3 para 2001 with unknown last menstrual period of February 08. Patient states she has been bleeding for about 2 weeks and noted increased cramping and passage of clots so she presented to the emergency department last evening. Quantitative beta hCG was noted to be 3908, blood type is pending. Patient is complaining of pelvic cramping. Patient states this wasn't unintended . Patient has 2 prior sections. Ultrasound was performed in the emergency department, thickened endometrial lining of 1.9 cm with questionable blighted ovum versus incomplete AB. Review of Systems Constitutional: Denies fatigue, Denies fever Ears, nose, mouth and throat: Denies headache Cardiovascular: Reports leg edema Respiratory: Denies dyspnea Genitourinary: Reports abnormal vaginal bleeding, Reports pelvic pain, Reports Past Medical History Past Medical History: No Reported History Additional Past Medical History / Comment(s): Hx of and current kidney stones. History of Any Multi-Drug Resistant Organisms: None Reported Past Surgical History: Section, Cholecystectomy Past Anesthesia/Blood Transfusion Reactions: No Reported Reaction Past Psychological History: No Psychological Hx Reported Smoking Status: Current every day smoker Past Alcohol Use History: None Reported Past Drug Use History: None Reported - Past Family History Mother Family Medical History: No Reported History Medications and Allergies Home Medications Medication Instructions Recorded Confirmed Type No Known Home Medications 05/13/20 05/13/20 History Allergies Allergy/AdvReac Type Severity Reaction Status Date / Time No Known Allergies Allergy Verified 05/13/20 06:36 Exam Osteopathic Statement: *. No significant issues noted on an osteopathic structural exam other than those noted in the History and Physical/Consult. Vital Signs Temp Pulse Pulse Resp BP BP Pulse Ox 05/13/20 07:38 97.9 F 95 16 115/73 99 05/13/20 04:57 98.1 F 92 17 128/84 97 05/13/20 03:08 98.1 F 96 18 142/92 100 Intake and Output 05/12/20 05/13/20 05/13/20 22:59 06:59 14:59 Other: Voiding Method Toilet # Voids 1 Weight 65.771 kg Targeted physical exam is performed and stay in general this a well-nourished well-developed female in obvious situational depression and tearful, breathing is noted to nonlabored, heart has regular rhythm, abdomen is soft, pelvic exam is deferred at this time. Results Result Diagrams: 05/13/20 03:20 05/13/20 03:20 Abnormal Lab Results - Last 24 Hours (Table) 05/13/20 05/13/20 Range/Units 03:20 03:20 Sodium 136 L (137-145) mmol/L Creatinine 1.34 H (0.52-1.04) mg/dL Glucose 109 H (74-99) mg/dL Urine Appearance Bloody H (Clear) Urine RBC >182 H (0-5) /hpf Urine WBC >182 H (0-5) /hpf Urine Bacteria Many H (None) /hpf Urine Mucus Many H (None) /hpf Assessment and Plan (1) Incomplete Current Visit: Yes Status: Acute Code(s): O03.4 - INCOMPLETE SPONTANEOUS WITHOUT COMPLICATION SNOMED Code(s): 469792366 Plan: Patient is counseled on need for suction dilation and curettage given her level of discomfort, and vaginal bleeding. Retained products of conception are noted on ultrasound personally 3 cm. Patient states understanding and is tearful but wishes to proceed. We'll plan suction dilation and curettage, will obtain blood typing prior to her discharge today. Surgery is reviewed all questions are answered.
[2020-05-13 09:16] VITALS: TEMP 98.8
[2020-05-13] MEDS ORDERED: DEXAMETHASONE SOD PHOSPHATE 10 MG/ML 1 ML VIAL IV ONE (09:31)
[2020-05-13] MEDS ORDERED: ONDANSETRON 4 MG/2 ML VIAL IVP ONE (09:32)
[2020-05-13] MEDS ORDERED: IV FLUID CONTINUATION 700 ML IV ONE (09:34)
[2020-05-13] MEDS ORDERED: PROPOFOL 10 MG/ML 20 ML VIAL IV ONE (09:40)
[2020-05-13] MEDS ORDERED: fentaNYL (PF) 50 MCG/ML 2 ML AMP ONE (09:40)
[2020-05-13] MEDS ORDERED: SODIUM CHLORIDE 0.9% 100 ML BAG ONE (09:40)
[2020-05-13] MEDS ORDERED: METHYLERGONOVINE 0.2 MG/ML 1 ML AMP ONE (09:40)
[2020-05-13] MEDS ORDERED: KETOROLAC 15 MG/ML 1 ML VIAL ONE (09:40)
[2020-05-13] MEDS ORDERED: MIDAZOLAM 2 MG/2 ML VIAL ONE (09:40)
[2020-05-13] MEDS ORDERED: ceFAZolin 1,000 MG VIAL ONE (09:40)
[2020-05-13] MEDS ORDERED: LIDOCAINE 1% INJ 10MG/ML (20 ML MDV) ONE (09:40)
--- NOTE | 2020-05-13 10:00 | P.OP ---
Date of Procedure: 05/13/20 Preoperative Diagnosis: Incomplete AB Postoperative Diagnosis: Same Procedure(s) Performed: Suction dilation and curettage Surgeon: Katty Calvo Estimated Blood Loss (ml): 10 IV fluids (ml): 400 Urine output (ml): 10 Pathology: other (Uterine contents) Condition: stable Disposition: PACU Indications for Procedure: This 34-year-old 3 para 2001 with last menstrual period of february 08 presented to the emergency department last evening with complaints of increasing vaginal bleeding. patient states she was going through a pad every couple hours, and noticed passage of clots. ultrasound done in the emergency department revealed thickened endometrium with 3 cm vascular area consistent with incomplete ab. Operative Findings: Moderate amount of products of conception Description of Procedure: Patient was taken back to the operating suite where general anesthesia was obtained difficulty by the anesthesia . She was prepped and draped in the normal sterile fashion in the dorsal lithotomy position. A red rubber catheter was then used to drain the bladder of clear yellow urine. The cervix was then circumferentially dilated to 18-Somali, an 8 curved suction curette was placed in the cervix toward the endometrial cavity and a moderate amount of products of conception were removed after 3 passes. A gentle sharp curettage revealed an empty with no further remnants. The suction curet was placed one more time revealing minimal bleeding. The products of conception were then sent to pathology for analysis. The single tooth tenaculum was taken off of the anterior lip of the cervix, hemostasis was appreciated. Methergine was then given. All instruments removed from the patient's vaginal vault. All counts were noted be correct 2 patient tolerated procedure well was taken the recovery room awake in stable condition.
[2020-05-13 10:36] VITALS: RESP 18
[2020-05-13 11:38] VITALS: BP 101/59; PULSE 72
== END 2020-05-13 13:27 | disposition home or self-care (01) ==
LOC: EC 03:06 → 1SOBS 04:46
PROVIDERS: ADMIT Obstetrics & Gynecology Obstetrics; ATTEND Obstetrics & Gynecology Obstetrics
DX: O03.4 Incomplete spontaneous abortion without complication (principal); Z79.3 Long term (current) use of hormonal contraceptives; N20.0 Calculus of kidney; Z87.442 Personal history of urinary calculi; Z90.49 Acquired absence of other specified parts of digestive tract; Z98.890 Other specified postprocedural states; Z98.891 History of uterine scar from previous surgery; F17.200 Nicotine dependence, unspecified, uncomplicated
CPT/HCPCS: 96375 ×2; 96376; 96374; 99285; 36415; 86900; 86901; 88305; 80053; 83605; 85025; 85610; 85730; 86850; 81001; 84702; 87040; 87086; 87077; 87186; 76801; 59812; G0378; J2250; J2270; J1100; J2210; J2405; J0690; J2001; J3010; J1885; J2704; J1170

== ENCOUNTER 2023-06-12 14:49 | Inpatient (IN) | payer OTHER ==
[2023-06-12 15:21] LABS: Basophils % (A) 0 %; Eosinophils # (A) 0.1 k/uL (0-0.7); Eosinophils % (A) 1 %; HCT 31.6 % (34.0-46.0); HGB 10.4 gm/dL (11.4-16.0); Hypochromasia Slight; Lymphocytes # (A) 0.2 k/uL (1.0-4.8); Lymphocytes % (A) 2 %; MCH 27.7 pg (25.0-35.0); MCHC 32.9 g/dL (31.0-37.0); Mean Platelet Volume 8.4; Monocytes # (A) 0.1 k/uL (0-1.0); Monocytes % (A) 1 %; Neutrophils # (A) 10.3 k/uL (1.3-7.7); Neutrophils % (A) 96 %; Platelet Count 200 k/uL (150-450); Poikilocytosis Slight; RBC 3.76 m/uL (3.80-5.40); RDW 15.6 % (11.5-15.5); WBC 10.8 k/uL (3.8-10.6)
[2023-06-12 15:33] LABS: ALT 13 U/L (4-34); AST 24 U/L (14-36); African American GFR (CKD) 66 (>60 ml/min/1.73 sqM); Albumin 2.8 g/dL (3.5-5.0); Alkaline Phosphatase 161 U/L (38-126); Anion Gap 10 mmol/L; Blood Urea Nitrogen 12 mg/dL (7-17); Calcium 8.1 mg/dL (8.4-10.2); Carbon Dioxide 14 mmol/L (22-30); Chloride 107 mmol/L (98-107); Glucose 80 mg/dL (74-99); Non-African American GFR(CKD) 57 (>60 ml/min/1.73 sqM); Potassium 3.4 mmol/L (3.5-5.1); Sodium 131 mmol/L (137-145); Total Bilirubin 0.6 mg/dL (0.2-1.3); Total Protein 5.5 g/dL (6.3-8.2)
[2023-06-12] MEDS: SODIUM CHLORIDE 0.9% 1,000 ML IV SCH ×2 (15:34→19:31)
--- NOTE | 2023-06-12 15:44 | ED ---
General Adult HPI - General Chief complaint: Abdominal Pain Stated complaint: Abd Pain Time Seen by Provider: 06/12/23 14:51 Source: patient, RN notes reviewed Mode of arrival: EMS Limitations: no limitations - History of Present Illness Initial comments: 37-year-old female presents to the emergency department with a chief complaint of left flank pain. Patient reports from [facility] via EMS transfer. Patient had laboratory and urinalysis results performed there. She was transferred to this facility in order to have MATERIAL YARD CLERK consults. She endorses no known fevers. She reports that it was acute onset left-sided flank pain that is sharp that has progressively gotten worse. She does report having a history of kidney stones. She denies any dysuria, hematuria, vaginal bleeding, vaginal cramping or low back pain. She does report that she is approximately 28 weeks with her fourth . She reports that her MATERIAL YARD CLERK is out of state. - Related Data Home Medications Medication Instructions Recorded Confirmed No Known Home Medications 05/13/20 05/13/20 Allergies Allergy/AdvReac Type Severity Reaction Status Date / Time No Known Allergies Allergy Verified 05/13/20 09:38 Review of Systems ROS Statement: Those systems with pertinent positive or pertinent negative responses have been documented in the HPI. ROS Other: All systems not noted in ROS Statement are negative. Past Medical History Past Medical History: No Reported History Additional Past Medical History / Comment(s): Hx of and current kidney stones. History of Any Multi-Drug Resistant Organisms: None Reported Past Surgical History: Section, Cholecystectomy Past Anesthesia/Blood Transfusion Reactions: No Reported Reaction Past Psychological History: No Psychological Hx Reported Smoking Status: Current every day smoker Past Alcohol Use History: None Reported Past Drug Use History: None Reported - Past Family History Mother Family Medical History: No Reported History General Exam - General Exam Comments Initial Comments: General: Alert, in no acute distress Head: atraumatic normocephalic. Eyes PERRL, EOMI intact, mucous membranes moist Respiratory: Lungs clear to auscultation bilaterally Cardiovascular: Heart rate tachycardic Abdominal: Soft without guarding or rebound, left CVA tenderness Extremities: Normal inspection with full range of motion and normal capillary refill Neuroogic: alert and oriented 3, CN II-XII intact, able to ambulate with steady gait Skin: warm dry and intact with normal color Limitations: no limitations Course Vital Signs 06/12/23 06/12/23 14:53 16:43 Temperature 98.7 F Pulse Rate 118 H 118 H Respiratory 20 24 Rate Blood Pressure 97/55 110/66 O2 Sat by Pulse 99 97 Oximetry - Reevaluation(s) Reevaluation #1: 06/12/23 17:09 Discussed with [facility] who agrees and accepts the patient for admission with consult to MATERIAL YARD CLERK Medical Decision Making - Medical Decision Making Was pt. sent in by a medical professional or institution ([facility] Doe, RESEARCH FOOD TECHNOLOGIST, urgent care, hospital, or group home...) When possible be specific @ -[No] Did you speak to anyone other than the patient for history (EMS, parent, family, police, friend...)? What history was obtained from this source @ -[No] Did you review nursing and triage notes (agree or disagree)? Why? @ -[I reviewed and agree with nursing and triage notes] Were old charts reviewed (outside hosp., previous admission, EMS record, old EKG, old radiological studies, urgent care reports/EKG's, group home records)? Report findings @ -[No old charts were reviewed] Differential Diagnosis (chest pain, altered mental status, abdominal pain women, abdominal pain men, vaginal bleeding, weakness, fever, dyspnea, syncope, headache, dizziness, GI bleed, back pain, seizure, CVA, palpatations, mental health, musculoskeletal)? @ -[not applicable] EKG interpreted by me (3pts min.). @ -[As above] X-rays interpreted by me (1pt min.). @ -[None done] CT interpreted by me (1pt min.). @ -[None done] U/S interpreted by me (1pt. min.). @ -Yes What testing was considered but not performed or refused? (CT, X-rays, U/S, labs)? Why? @ -[None] What meds were considered but not given or refused? Why? @ -[None] Did you discuss the management of the patient with other professionals (professionals i.e. PIO Doe, RESEARCH FOOD TECHNOLOGIST, lab, RT, psych nurse, addiction social worker, continuity manager, teacher, credit officer, case management specialist)? Give summary @ -[No] Was smoking cessation discussed for >3mins.? @ -[No] Was critical care preformed (if so, how long)? @ -[No] Were there social determinants of health that impacted care today? How? (Homelessness, low income, unemployed, alcoholism, drug addiction, transportation, low edu. Level, literacy, decrease access to med. care, senior care, rehab)? @ -[No] Was there de-escalation of care discussed even if they declined (Discuss DNR or withdrawal of care, Hospice)? DNR status @ -[No] What co-morbidities impacted this encounter? (DM, HTN, Smoking, COPD, CAD, Cancer, CVA, ARF, Chemo, Hep., AIDS, mental health diagnosis, sleep apnea, morbid obesity)? @ -[None] Was patient admitted / discharged? Hospital course, mention meds given and route, prescriptions, significant lab abnormalities, going to OR and other pertinent info. @ -Admission. This is a 28-year-old female who presents the emergency department with left flank pain. Patient approximately 28 weeks . Patient had a thorough history and physical exam performed. Significant left- sided CVA tenderness. Patient is tachycardic. Abdomen gravid. Patient had a laboratory studies performed which revealed WBC 10.8, hemoglobin 10.4 sodium 131, potassium 2.4 BUN 12, creatinine 1.0 Ultrasound reveals moderate left-sided hydronephrosis with bilateral renal calcifications the largest on the right is 12 mm and the largest on the left is 7 mm. Case initially discussed Dr. Brand who refuses consult. Case is discussed with soapy from [facility] who agrees and accepts the patient for admission with consult to MATERIAL YARD CLERK. Was given 2 g of IV Rocephin at [facility]. She was given 6 mg of morphine and route. She was given IV Tylenol, 1 L IV fluids, Benadryl with mild symptomatic improvement. She is agreeable with the plan for admission. Case discussed with SUSANNAH Gan who agrees with plan of care Undiagnosed new problem with uncertain prognosis? @ -[No] Drug Therapy requiring intensive monitoring for toxicity (Heparin, Nitro, Insulin, Cardizem)? @ -[No] Were any procedures done? @ -[No] Diagnosis/symptom? @ -Left Flank Pain - Hydronephritis - Acute, or Chronic, or Acute on Chronic? @ -Acute Uncomplicated (without systemic symptoms) or Complicated (systemic symptoms)? @ complicated Side effects of treatment? @ -[No] Exacerbation, Progression, or Severe Exacerbation? @ -[No] Poses a threat to life or bodily function? How? (Chest pain, [place], SD, pneumonia, PE, COPD, DKA, ARF, appy, cholecystitis, CVA, Diverticulitis, Homicidal, Suicidal, threat to staff... and all critical care pts) @ -Moderate - Lab Data Result diagrams: 06/12/23 15:05 06/12/23 15:05 Lab Results 06/12/23 06/12/23 Range/Units 15:05 15:05 WBC 10.8 H (3.8-10.6) k/uL RBC 3.76 L (3.80-5.40) m/uL Hgb 10.4 L (11.4-16.0) gm/dL Hct 31.6 L (34.0-46.0) % MCV 84.0 (80.0-100.0) fL MCH 27.7 (25.0-35.0) pg MCHC 32.9 (31.0-37.0) g/dL RDW 15.6 H (11.5-15.5) % Plt Count 200 (150-450) k/uL MPV 8.4 Neutrophils % 96 % Lymphocytes % 2 % Monocytes % 1 % Eosinophils % 1 % Basophils % 0 % Neutrophils # 10.3 H (1.3-7.7) k/uL Lymphocytes # 0.2 L (1.0-4.8) k/uL Monocytes # 0.1 (0-1.0) k/uL Eosinophils # 0.1 (0-0.7) k/uL Basophils # 0.0 (0-0.2) k/uL Hypochromasia Slight Poikilocytosis Slight Sodium 131 L (137-145) mmol/L Potassium 3.4 L (3.5-5.1) mmol/L Chloride 107 (98-107) mmol/L Carbon Dioxide 14 L (22-30) mmol/L Anion Gap 10 mmol/L BUN 12 (7-17) mg/dL Creatinine 1.20 H (0.52-1.04) mg/dL Est GFR (CKD-EPI)AfAm 66 (>60 ml/min/1.73 sqM) Est GFR (CKD-EPI)NonAf 57 (>60 ml/min/1.73 sqM) Glucose 80 (74-99) mg/dL Calcium 8.1 L (8.4-10.2) mg/dL Total Bilirubin 0.6 (0.2-1.3) mg/dL AST 24 (14-36) U/L ALT 13 (4-34) U/L Alkaline Phosphatase 161 H (38-126) U/L Total Protein 5.5 L (6.3-8.2) g/dL Albumin 2.8 L (3.5-5.0) g/dL Disposition Clinical Impression: Left flank pain, , Hydronephrosis Disposition: ADMITTED IP TO THIS HOSP Condition: Fair Is patient prescribed a controlled substance at d/c from ED?: No Referrals: None,Stated [Primary Care Provider] - 1-2 days Time of Disposition: 17:12
--- NOTE | 2023-06-12 16:04 | US ---
EXAMINATION TYPE: US kidneys/renal and bladder DATE OF EXAM: 06/12/2023 COMPARISON: XR 11/24/2018 CLINICAL INDICATION: Female, 37 years old with history of flank pain; Left flank pain. Hx of kidney s tones. Patient is 28 weeks . EXAM MEASUREMENTS: Right Kidney: 11.0 x 5.8 x 6.0 cm Left Kidney: 13.7 x 6.6 x 7.2 cm Right Kidney: Limited visibility of lower pole due to gas. 3 hyperechoic foci seen. Largest is at upp er pole= 1.2 x 1.1 x 0.6 cm. Left Kidney: Enlarged. Hydronephrosis was seen. 2 hyperechoic foci seen. Upper pole focus= 0.6 x 0 .6 x 0.7 cm. Mid pole focus= 0.7 x 0.7 x 0.5 cm. Bladder: Bladder was not distended. Unable to evaluate. Bilateral Jets seen: No IMPRESSION: 1. Moderate left-sided hydronephrosis. 2. Bilateral renal calcifications, the largest calcification on the right is 12 mm in the upper pole and the largest calcification on the left is 7 mm in the midpole..
[2023-06-12] MEDS ORDERED: diphenhydrAMINE 50 MG/ML 1 ML VIAL IVP STA (16:42)
[2023-06-12] MEDS ORDERED: ACETAMINOPHEN IV (For NPO) 1,000 MG in EMPTY BAG 1 BAG IVPB STA (16:45)
[2023-06-12] MEDS ORDERED: NALOXONE 0.4 MG/ML 1 ML VIAL IV PRN (17:17)
[2023-06-12] MEDS ORDERED: ACETAMINOPHEN TAB 325 MG TAB PO PRN (17:17)
[2023-06-12] MEDS ORDERED: MORPHINE SULFATE 4 MG/ML SYRINGE IVP STA (19:26)
[2023-06-12] MEDS ORDERED: HYDROmorphone PCA 10 MG/50 ML BAG IV PRN (21:21)
[2023-06-12 22:37] LABS: Appearance,Urine Cloudy (Clear); Bacteria,Urine Many /hpf; Bilirubin,Urine 1+ (Negative); Blood,Urine Trace (Negative); Color,Urine Brown; Glucose,Urine (UA) Negative (Negative); Hyaline Casts,Urine 4 /lpf (0-2); Ketones,Urine Negative (Negative); Leukocyte Esterase,Urine Large (Negative); Mucus,Urine Rare /hpf; Nitrite,Urine Positive (Negative); Protein,Urine 1+ (Negative); RBC,Urine 3 /hpf (0-5); Specific Gravity,Urine 1.009 (1.001-1.035); Squamous Epithelial Cell,Urine 7 /hpf (0-4); WBC,Urine 107 /hpf (0-5)
[2023-06-13] MEDS: SODIUM CHLORIDE 0.9% 1,000 ML IV SCH ×4 (06:00→22:15)
--- NOTE | 2023-06-13 12:39 | P.HPIM ---
History of Present Illness H&P Date: 06/13/23 History of present illness; patient 37-year-old lady with past medical significa nt for kidney stones who is 28 weeks to the ER because of left-sided flank pain. Patient transfer from [facility]. Patient initially presented there because of acute onset of left-sided flank pain, pain was intermittent but gradually worsening, radiating down the groin. No complaints of nausea and abdominal pain. Denies any history of hematuria, increased frequency of urination or increased urgency. Denies any vaginal bleeding. There was no complain of fever or chills at home. Patient was initially evaluated at [facility], where they give patient IV antibiotics and pain medication and transferred to [facility] . Initial lab work done in the ER showed WBC 10.8, hemoglobin 10.4, platelet count 200, sodium 1310 potassium 3.4, BUN 12, creatinine 1.20, AST 24, ALT 13, alk phos 161 UA showing positive nitrites, positive leukocyte esterase, urine WBC 107 Ultrasound kidneys done showed moderate left-sided hydronephrosis, bilateral renal calcifications Patient was admitted to medicine service REVIEW OF SYSTEMS: CONSTITUTIONAL: No fever, no malaise, no fatigue. HEENT: No recent visual problems or hearing problems. Denied any sore throat. CARDIOVASCULAR: No chest pain, orthopnea, PND, no palpitations, no syncope. PULMONARY: No shortness of breath, no cough, no hemoptysis. GASTROINTESTINAL: As mentioned above NEUROLOGICAL: No headaches, no weakness, no numbness. HEMATOLOGICAL: Denies any bleeding or petechiae. GENITOURINARY: Denies any burning micturition, frequency, or urgency. MUSCULOSKELETAL/RHEUMATOLOGICAL: Denies any joint pain, swelling, or any muscle pain. ENDOCRINE: Denies any polyuria or polydipsia. The rest of the 14-point review of systems is negative. PHYSICAL EXAMINATION: GENERAL: The patient is alert and oriented x3, not in any acute distress. Well developed, well nourished. HEENT: Pupils are round and equally reacting to light. EOMI. No scleral icterus. No conjunctival pallor. Normocephalic, atraumatic. No pharyngeal erythema. No thyromegaly. CARDIOVASCULAR: S1 and S2 present. No murmurs, rubs, or gallops. PULMONARY: Chest is clear to auscultation, no wheezing or crackles. ABDOMEN: Soft, nontender, nondistended, left CVA tenderness noticeable MUSCULOSKELETAL: No joint swelling or deformity. EXTREMITIES: No cyanosis, clubbing, or pedal edema. NEUROLOGICAL: Gross neurological examination did not reveal any focal deficits. SKIN: No rashes. Assessment and plan Pyelonephritis Third trimester History of kidney stones Monitor vital signs Monitor CBC Monitor CMP Continue IV fluids Continue antiemetics Continue IV Rocephin UNEMPLOYMENT INSPECTOR consulted, continue monitoring per GAS ROLLER OPERATOR protocol. Pain medications are being managed by UNEMPLOYMENT INSPECTOR ID consulted Labs and medication were reviewed.. Continue same treatment. Continue with symptomatic treatment. Resume home medication. Monitor labs and vitals. DVT and GI prophylaxis. Further recommendations as per clinical course of the patient Dictation was produced using [employer] dictation software. please excuse any grammatical, word or spelling errors. Past Medical History Past Medical History: No Reported History Additional Past Medical History / Comment(s): Hx of and current kidney stones. History of Any Multi-Drug Resistant Organisms: None Reported Past Surgical History: Section, Cholecystectomy Past Anesthesia/Blood Transfusion Reactions: No Reported Reaction Past Psychological History: No Psychological Hx Reported Smoking Status: Former smoker Past Alcohol Use History: None Reported Past Drug Use History: None Reported - Past Family History Mother Family Medical History: No Reported History Medications and Allergies Home Medications Medication Instructions Recorded Confirmed Type No Known Home Medications 05/13/20 06/12/23 History Allergies Allergy/AdvReac Type Severity Reaction Status Date / Time No Known Allergies Allergy Verified 06/12/23 17:42 Physical Exam Vitals: Vital Signs Temp Pulse Pulse Resp BP BP Pulse Ox 06/13/23 07:33 98.9 F 109 H 18 106/65 97 06/13/23 01:36 98.2 F 124 H 19 99/57 94 L 06/12/23 20:37 97.9 F 114 H 19 115/72 95 06/12/23 19:00 85 26 H 135/89 97 06/12/23 18:00 86 22 143/68 99 06/12/23 16:43 118 H 24 110/66 97 06/12/23 14:53 98.7 F 118 H 20 97/55 99 Intake and Output 06/12/23 06/13/23 06/13/23 22:59 06:59 14:59 Other: # Voids 2 Weight 75.75 kg Results CBC & Chem 7: 06/12/23 15:05 06/12/23 15:05 Labs: Abnormal Lab Results - Last 24 Hours (Table) 06/12/23 06/12/23 06/12/23 Range/Units 15:05 15:05 15:05 WBC 10.8 H (3.8-10.6) k/uL RBC 3.76 L (3.80-5.40) m/uL Hgb 10.4 L (11.4-16.0) gm/dL Hct 31.6 L (34.0-46.0) % RDW 15.6 H (11.5-15.5) % Neutrophils # 10.3 H (1.3-7.7) k/uL Lymphocytes # 0.2 L (1.0-4.8) k/uL Sodium 131 L (137-145) mmol/L Potassium 3.4 L (3.5-5.1) mmol/L Carbon Dioxide 14 L (22-30) mmol/L Creatinine 1.20 H (0.52-1.04) mg/dL Calcium 8.1 L (8.4-10.2) mg/dL Alkaline Phosphatase 161 H (38-126) U/L Total Protein 5.5 L (6.3-8.2) g/dL Albumin 2.8 L (3.5-5.0) g/dL Urine Appearance Cloudy H (Clear) Urine Protein 1+ H (Negative) Urine Blood Trace H (Negative) Urine Nitrite Positive H (Negative) Urine Bilirubin 1+ H (Negative) Ur Leukocyte Esterase Large H (Negative) Urine WBC 107 H (0-5) /hpf Ur Squamous Epith Cells 7 H (0-4) /hpf Urine Bacteria Many H (None) /hpf Hyaline Casts 4 H (0-2) /lpf Urine Mucus Rare H (None) /hpf
[2023-06-13] MEDS ORDERED: HYDROcodone/APAP 5-325MG 1 EACH TAB PO PRN (12:43)
--- NOTE | 2023-06-13 12:54 | P.OBCN ---
History of Present Illness Consult date: 06/13/23 Chief complaint: 28 week intrauterine , presumptive nephrolithiasis History of present illness: The patient is a 37-year-old 5 para 4004 presented to the hospital approximately 28 weeks of gestation with a known history of nephrolithiasis having had stones passed in the past. She additionally has had significant enough issues that she required ureteral stents at some point in her history. She has not experienced this in previous pregnancies. Her pain starts in the left flank and is radiating into the left groin and is quite consistent with the presentation of a passing kidney stone. She is 20 weeks and has p renatal care obtained elsewhere. Her intention is to adopt this baby out to a couple who reside in [place]. She denies any complications this point. The fetus remains active and there are no contractions. There is no vaginal discharge or bleeding or any other concerns. The patient denies nausea and vomiting and presents only because of significant discomfort. She is amenable, upon questioning, to attempted control of her pain with oral narcotics and perhaps even as an outpatient. Obstetrical history: 5 para 4004 with 4 term sections. Current statistics as available are as noted in history of present illness. There is no record available. Gynecologic history: Unremarkable per patient. Review of Systems Review of systems is confined to history of present illness. Past Medical History Past Medical History: No Reported History Additional Past Medical History / Comment(s): Hx of and current kidney stones. History of Any Multi-Drug Resistant Organisms: None Reported Past Surgical History: Section, Cholecystectomy Past Anesthesia/Blood Transfusion Reactions: No Reported Reaction Past Psychological History: No Psychological Hx Reported Smoking Status: Former smoker Past Alcohol Use History: None Reported Past Drug Use History: None Reported - Past Family History Mother Family Medical History: No Reported History Medications and Allergies Home Medications Medication Instructions Recorded Confirmed Type No Known Home Medications 05/13/20 06/12/23 History Allergies Allergy/AdvReac Type Severity Reaction Status Date / Time No Known Allergies Allergy Verified 06/12/23 17:42 Exam Vital Signs Temp Pulse Pulse Resp BP BP Pulse Ox 06/13/23 07:33 98.9 F 109 H 18 106/65 97 06/13/23 01:36 98.2 F 124 H 19 99/57 94 L 06/12/23 20:37 97.9 F 114 H 19 115/72 95 06/12/23 19:00 85 26 H 135/89 97 06/12/23 18:00 86 22 143/68 99 06/12/23 16:43 118 H 24 110/66 97 06/12/23 14:53 98.7 F 118 H 20 97/55 99 Intake and Output 06/12/23 06/13/23 06/13/23 22:59 06:59 14:59 Other: Voiding Method Toilet # Voids 2 Weight 75.75 kg In general, this is a well-developed well-nourished female in no acute distress who is up in bed eating her lunch. Focal examination is confined to abdomen which demonstrates a uterine fundus consistent with stated gestational age though fundal height is not measured. The fundus is soft and nontender. She does demonstrate some left flank pain which is radiating into her left groin consistent with the pathway of a potential stone. Her extremities are without any cyanosis, clubbing, or edema and are nontender to palpation. Digital cervical examination is deferred. Results Result Diagrams: 06/12/23 15:05 06/12/23 15:05 Abnormal Lab Results - Last 24 Hours (Table) 06/12/23 06/12/23 06/12/23 Range/Units 15:05 15:05 15:05 WBC 10.8 H (3.8-10.6) k/uL RBC 3.76 L (3.80-5.40) m/uL Hgb 10.4 L (11.4-16.0) gm/dL Hct 31.6 L (34.0-46.0) % RDW 15.6 H (11.5-15.5) % Neutrophils # 10.3 H (1.3-7.7) k/uL Lymphocytes # 0.2 L (1.0-4.8) k/uL Sodium 131 L (137-145) mmol/L Potassium 3.4 L (3.5-5.1) mmol/L Carbon Dioxide 14 L (22-30) mmol/L Creatinine 1.20 H (0.52-1.04) mg/dL Calcium 8.1 L (8.4-10.2) mg/dL Alkaline Phosphatase 161 H (38-126) U/L Total Protein 5.5 L (6.3-8.2) g/dL Albumin 2.8 L (3.5-5.0) g/dL Urine Appearance Cloudy H (Clear) Urine Protein 1+ H (Negative) Urine Blood Trace H (Negative) Urine Nitrite Positive H (Negative) Urine Bilirubin 1+ H (Negative) Ur Leukocyte Esterase Large H (Negative) Urine WBC 107 H (0-5) /hpf Ur Squamous Epith Cells 7 H (0-4) /hpf Urine Bacteria Many H (None) /hpf Hyaline Casts 4 H (0-2) /lpf Urine Mucus Rare H (None) /hpf Assessment and Plan (1) Current Visit: Yes Status: Acute Code(s): Z34.90 - ENCNTR FOR SUPRVSN OF NORMAL , UNSP, UNSP TRIMESTER SNOMED Code(s): 16046038 (2) Calculus of kidney Current Visit: No Status: Acute Code(s): N20.0 - CALCULUS OF KIDNEY SNOMED Code(s): 40455305 (3) Calculus of ureter Current Visit: No Status: Acute Code(s): N20.1 - CALCULUS OF URETER SNOMED Code(s): 53850121 Plan: The patient has thus far been maintained in terms of discomfort with a Dilaudid RN GERIATRIC. She is tolerating both liquids and solids and is amenable to a trial of oral pain medications in an attempt to potentially manages as an outpatient. I have increased her IV rate to 150 mL per hour in an attempt to flush the stone through. She should continue to have her urine strained or collected though the patient should be able to tell us the moment her stone passes as her pain should rhys. I have discontinued the RN GERIATRIC and ordered [place] 5/325 mg, one every 4 h ours for mild pain, 2 every 6 hours for more intense pain. Should this be adequate to manage her ongoing discomfort, strong consideration should be given to discharging the patient home for management as an outpatient. There is a consideration for adding Flomax in order to flush the stone through as well. If there is evidence for an ongoing urinary tract infection, oral antibiotics should be given on discharge as well. Both Bactrim DS and Macrobid would be reasonable alternatives. We will continue to have a once daily NST to assure well-being by her current condition represents no immediate threat to the itself.
[2023-06-13 13:27] LABS: BUN/Creat Ratio 7.13 Ratio (12.00-20.00); Blood Urea Nitrogen 16.4 mg/dL (9.0-27.0); Calcium 7.8 mg/dL (8.7-10.3); Carbon Dioxide 17.3 mmol/L (21.6-31.8); Chloride 102 mmol/L (96-109); Glucose 94 mg/dL (70-110); Sodium 133 mmol/L (135-145)
[2023-06-13 14:04] LABS: Basophils # (A) 0.05 X 10*3/uL (0.00-0.10); Basophils % (A) 0.2 %; Eosinophils # (A) 0 X 10*3/uL (0.04-0.35); Eosinophils % (A) 0 %; HCT 30.1 % (37.2-46.3); HGB 9.4 d/dL (12.0-15.0); Lymphocytes # (A) 0.26 X 10*3/uL (0.90-5.00); Lymphocytes % (A) 0.9 %; MCH 27.1 pg (27.0-32.0); MCHC 31.2 d/dL (32.0-37.0); MCV 86.7 FL (80.0-97.0); Mean Platelet Volume 11.4 FL (9.5-12.2); Monocytes # (A) 0.51 X 10*3/uL (0.20-1.00); Monocytes % (A) 1.9 %; NRBC Per 100 WBC 0.02 X 10*3/uL (0.00-0.01); Neutrophils % (A) 96.2 %; Platelet Count 185 X 10*3/uL (140-440); RBC 3.47 X 10*6/uL (4.10-5.20); RBC Morphology Normal (Normal); WBC 27.44 X 10*3/uL (4.50-10.00)
[2023-06-13] MEDS: HYDROcodone/APAP 5-325MG 1 EACH TAB PO PRN (20:14)
[2023-06-13 20:26] VITALS: RESP 16
[2023-06-13] MEDS ORDERED: TAMSULOSIN 0.4 MG CAP.ER.24H PO SCH (21:00)
[2023-06-13] MEDS ORDERED: diphenhydrAMINE 25 MG CAP PO PRN (22:08)
[2023-06-13] MEDS ORDERED: diphenhydrAMINE 50 MG/ML 1 ML VIAL IVP PRN (22:08)
--- NOTE | 2023-06-13 23:30 | P.CONS ---
History of Present Illness - Reason for Consult Consult date: 06/13/23 Pyelonephritis Requesting physician: Isak Antunez - Chief Complaint Back pain and urinary urgency x one day - History of Present Illness Patient is a 37-year-old female currently approximately weeks and did have a history of nephrolithiasis as well as recurrent UTI however the patient did not have any episode of UTI during this patient is presenting to the ER for evaluation of acute pain to the left flank area that started the night before presentation to the hospital patient describes the pain to be sharp in nature intensity is almost underestimated by the time she presented to hospital with associated nausea but no vomiting did have urinary urgency frequency but no hematuria with the send the patient has been evaluated on presentation to the hospital the patient was afebrile and no fever have been high subsequently patient was tachycardic not hypotensive or hypoxic did have a white count of 10 repeat white count is 27.44 creatinine is 2.3 urine was positive patient did have a abdominal bladder ultrasound moderate left-sided hydronephrosis bilateral renal calcification patient was started on Rocephin infectious disease was consulted for management of antibiotic therapy with complicated UTI Review of Systems Positive point and negatives has been mentioned in the HPI, complete review of systems was performed and all other systems are negative Past Medical History Past Medical History: No Reported History Additional Past Medical History / Comment(s): Hx of and current kidney stones. History of Any Multi-Drug Resistant Organisms: None Reported Past Surgical History: Section, Cholecystectomy Past Anesthesia/Blood Transfusion Reactions: No Reported Reaction Past Psychological History: No Psychological Hx Reported Smoking Status: Former smoker Past Alcohol Use History: None Reported Past Drug Use History: None Reported - Past Family History Mother Family Medical History: No Reported History Medications and Allergies Home Medications Medication Instructions Recorded Confirmed Type No Known Home Medications 05/13/20 06/12/23 History Allergies Allergy/AdvReac Type Severity Reaction Status Date / Time No Known Allergies Allergy Verified 06/12/23 17:42 Physical Exam Vitals: Vital Signs Temp Pulse Pulse Resp BP BP Pulse Ox 06/13/23 07:33 98.9 F 109 H 18 106/65 97 06/13/23 01:36 98.2 F 124 H 19 99/57 94 L 06/12/23 20:37 97.9 F 114 H 19 115/72 95 06/12/23 19:00 85 26 H 135/89 97 06/12/23 18:00 86 22 143/68 99 06/12/23 16:43 118 H 24 110/66 97 06/12/23 14:53 98.7 F 118 H 20 97/55 99 Intake and Output 06/12/23 06/13/23 06/13/23 22:59 06:59 14:59 Other: Voiding Method Toilet # Voids 2 Weight 75.75 kg GENERAL DESCRIPTION: Middle-aged female lying in bed, no distress. No tachypnea or accessory muscle of respiration use. HEENT: Shows Pallor , no scleral icterus. Oral mucous membrane is dry. No pharyngeal erythema or thrush NECK: Trachea central, no thyromegaly. LUNGS: Unlabored breathing. Clear to auscultation anteriorly. No wheeze or crackle. HEART: S1, S2, regular rate and rhythm. No loud murmur ABDOMEN: Soft, no tenderness , EXTREMITIES: No edema of feet. SKIN: No rash, no masses palpable. NEUROLOGICAL: The patient is awake, alert, oriented x3, mood and affect normal. Results CBC & Chem 7: 06/13/23 07:02 06/13/23 07:02 Labs: Abnormal Lab Results - Last 24 Hours (Table) 06/12/23 06/12/23 06/12/23 Range/Units 15:05 15:05 15:05 WBC 10.8 H (3.8-10.6) k/uL RBC 3.76 L (3.80-5.40) m/uL Hgb 10.4 L (11.4-16.0) gm/dL Hct 31.6 L (34.0-46.0) % RDW 15.6 H (11.5-15.5) % Neutrophils # 10.3 H (1.3-7.7) k/uL Lymphocytes # 0.2 L (1.0-4.8) k/uL Sodium 131 L (137-145) mmol/L Potassium 3.4 L (3.5-5.1) mmol/L Carbon Dioxide 14 L (22-30) mmol/L Anion Gap (4.00-12.00) mmol/L Creatinine 1.20 H (0.52-1.04) mg/dL Est GFR (CKD-EPI) (>=60) BUN/Creatinine Ratio (12.00-20.00) Ratio Calcium 8.1 L (8.4-10.2) mg/dL Alkaline Phosphatase 161 H (38-126) U/L Total Protein 5.5 L (6.3-8.2) g/dL Albumin 2.8 L (3.5-5.0) g/dL Urine Appearance Cloudy H (Clear) Urine Protein 1+ H (Negative) Urine Blood Trace H (Negative) Urine Nitrite Positive H (Negative) Urine Bilirubin 1+ H (Negative) Ur Leukocyte Esterase Large H (Negative) Urine WBC 107 H (0-5) /hpf Ur Squamous Epith Cells 7 H (0-4) /hpf Urine Bacteria Many H (None) /hpf Hyaline Casts 4 H (0-2) /lpf Urine Mucus Rare H (None) /hpf 06/13/23 Range/Units 07:02 WBC (3.8-10.6) k/uL RBC (3.80-5.40) m/uL Hgb (11.4-16.0) gm/dL Hct (34.0-46.0) % RDW (11.5-15.5) % Neutrophils # (1.3-7.7) k/uL Lymphocytes # (1.0-4.8) k/uL Sodium 133 L (137-145) mmol/L Potassium (3.5-5.1) mmol/L Carbon Dioxide 17.3 L (22-30) mmol/L Anion Gap 13.70 H (4.00-12.00) mmol/L Creatinine 2.3 H (0.52-1.04) mg/dL Est GFR (CKD-EPI) 27 L (>=60) BUN/Creatinine Ratio 7.13 L (12.00-20.00) Ratio Calcium 7.8 L (8.4-10.2) mg/dL Alkaline Phosphatase (38-126) U/L Total Protein (6.3-8.2) g/dL Albumin (3.5-5.0) g/dL Urine Appearance (Clear) Urine Protein (Negative) Urine Blood (Negative) Urine Nitrite (Negative) Urine Bilirubin (Negative) Ur Leukocyte Esterase (Negative) Urine WBC (0-5) /hpf Ur Squamous Epith Cells (0-4) /hpf Urine Bacteria (None) /hpf Hyaline Casts (0-2) /lpf Urine Mucus (None) /hpf Assessment and Plan (1) Pyelonephritis Current Visit: Yes Status: Acute Code(s): N12 - TUBULO-INTERSTITIAL NEPHRITIS, NOT SPCF ACUTE OR CHRONIC SNOMED Code(s): 63449023 Plan: 1patient presented to hospital with left flank pain urinary urgency frequency patient did have elevated white count abnormal ultrasound concerning for left- sided hydronephrosis likely complicated ureteric infection likely from enteric gram-negative pathogen patient mentioning no antibiotic exposure during this likely sensitive pathogen such as E. coli 2-we will increase the dose of Rocephin to 2 g daily while waiting for the culture to finalize We will follow on clinical condition and cultures to further adjust medication if needed Thank you for this consultation we will follow the patient along with you Dictation was produced using 1[employer] dictation software. please excuse any grammatical, word or spelling errors. Time with Patient: Greater than 30
[2023-06-14] MEDS: HYDROcodone/APAP 5-325MG 1 EACH TAB PO PRN ×2 (00:02→05:18)
[2023-06-14] MEDS: SODIUM CHLORIDE 0.9% 1,000 ML IV SCH (05:18)
[2023-06-14 06:36] LABS: Anisocytosis Slight; Basophils % (A) 0 %; Eosinophils % (A) 0 %; HCT 25.6 % (34.0-46.0); Hypochromasia Moderate; Lymphocytes # (A) 0.7 k/uL (1.0-4.8); Lymphocytes % (A) 5 %; MCH 25.3 pg (25.0-35.0); MCHC 29.1 g/dL (31.0-37.0); Mean Platelet Volume 11.3; Monocytes # (A) 0.3 k/uL (0-1.0); Monocytes % (A) 2 %; Neutrophils # (A) 11.8 k/uL (1.3-7.7); Neutrophils % (A) 91 %; Platelet Count 123 k/uL (150-450); Poikilocytosis Slight; RBC 2.95 m/uL (3.80-5.40); RDW 16.1 % (11.5-15.5); WBC 12.9 k/uL (3.8-10.6)
[2023-06-14 06:39] LABS: HGB 7.4 gm/dL (11.4-16.0)
[2023-06-14 06:46] LABS: ALT 12 U/L (4-34); AST 16 U/L (14-36); African American GFR (CKD) 63 (>60 ml/min/1.73 sqM); Albumin 2.3 g/dL (3.5-5.0); Alkaline Phosphatase 122 U/L (38-126); Anion Gap 5 mmol/L; Blood Urea Nitrogen 18 mg/dL (7-17); Carbon Dioxide 18 mmol/L (22-30); Chloride 116 mmol/L (98-107); Glucose 94 mg/dL (74-99); Non-African American GFR(CKD) 55 (>60 ml/min/1.73 sqM); Potassium 3.6 mmol/L (3.5-5.1); Sodium 139 mmol/L (137-145); Total Bilirubin 0.2 mg/dL (0.2-1.3); Total Protein 4.9 g/dL (6.3-8.2)
--- NOTE | 2023-06-14 07:57 | US ---
EXAMINATION TYPE: US OB >= 14 wk fetus DATE OF EXAM: 06/14/2023 COMPARISON: None for this . CLINICAL INDICATION: Female, 37 years old with history of position, placenta, SHANITA, EFW; Hx C se ctions. Hx kidney stones. Patient states she thinks she is about 31 weeks, has no dates. . TECHNIQUE: Transabdominal (TA) GESTATIONAL AGE / DATING Physician Established: Not yet established. Dates by LMP: Unknown per patient. Dates by First Scan: This is first scan. Dates by Current Scan: (29 weeks/6 days) EDC: 08/24/2023 SURVEY IUP: Single PLACENTA: Posterior PREVIA: No Previa SHANITA: 11.7 cm Normal CERVICAL LENGTH (transabdominal: norm > 3.0cm): Limited, measured at 3.6 cm. No transvaginal needed p digital media producer. BIOMETRY PRESENTATION: Vertex BPD: 7.26 cm 29 weeks / 1 day HC: 27.39 cm 29 weeks / 6 days AC: 27.81 cm 31 weeks / 6 days FL: 5.74 cm 30 weeks / 1 day ESTIMATED WEIGHT IN GRAMS: 1659 grams ESTIMATED WEIGHT IN LBS/OZ: 3 lbs. 11 oz. WEIGHT PERCENTAGE BASED ON ESTABLISHED DATES: No dates provided. HC/AC: 0.98 Normal FL/AC: 20.64 Normal HEART RATE: 137 bpm RHYTHM: Normal IMPRESSION: Single live intrauterine gestation of ultrasound age 29 weeks 6 days. Additional information as descr ibed above.
[2023-06-14 08:08] VITALS: BP 120/62; PULSE 88; TEMP 98
--- NOTE | 2023-06-14 08:51 | P.PN ---
Subjective Progress Note Date: 06/14/23 The patient reports complete resolution of her pain likely indicating passage of the stone. She is otherwise performing all activities of daily living. No ongoing concerns with normal movement. Objective - Vital Signs Vital signs: Vital Signs Temp 98.0 F 06/14/23 07:50 Pulse 88 06/14/23 07:50 Resp 16 06/14/23 07:50 BP 120/62 06/14/23 07:50 Pulse Ox 99 06/14/23 07:50 FiO2 Intake & Output 06/13/23 06/14/23 06/14/23 18:59 06:59 18:59 Output Total 1000 2700 700 Balance -1000 -2700 -700 Output: Urine 1000 2700 700 Other: Voiding Method Toilet # Voids 1 - Exam Physical examination is deferred today as the patient is in the bathroom and only question through the door. - Labs CBC & Chem 7: 06/14/23 06:15 06/14/23 06:15 Labs: Abnormal Lab Results - Last 24 Hours (Table) 06/13/23 06/13/23 06/14/23 Range/Units 07:02 07:02 06:15 WBC 27.44 H 12.9 H (4.50-10.00) X 10*3/uL RBC 3.47 L 2.95 L (4.10-5.20) X 10*6/uL Hgb 9.4 L 7.4 L D (12.0-15.0) d/dL Hct 30.1 L 25.6 L (37.2-46.3) % MCHC 31.2 L 29.1 L (32.0-37.0) d/dL RDW 16.0 H 16.1 H (11.5-14.5) % Plt Count 123 L (150-450) k/uL Neutrophils # 26.40 H 11.8 H (1.80-7.70) X 10*3/uL Lymphocytes # 0.26 L 0.7 L (0.90-5.00) X 10*3/uL Eosinophils # 0 L (0.04-0.35) X 10*3/uL NRBC/100 WBC Diff 0.02 H (0.00-0.01) X 10*3/uL Sodium 133 L (135-145) mmol/L Chloride (98-107) mmol/L Carbon Dioxide 17.3 L (21.6-31.8) mmol/L Anion Gap 13.70 H (4.00-12.00) mmol/L BUN (7-17) mg/dL Creatinine 2.3 H (0.6-1.5) mg/dL Est GFR (CKD-EPI) 27 L (>=60) BUN/Creatinine Ratio 7.13 L (12.00-20.00) Ratio Calcium 7.8 L (8.7-10.3) mg/dL Total Protein (6.3-8.2) g/dL Albumin (3.5-5.0) g/dL 06/14/23 Range/Units 06:15 WBC (4.50-10.00) X 10*3/uL RBC (4.10-5.20) X 10*6/uL Hgb (12.0-15.0) d/dL Hct (37.2-46.3) % MCHC (32.0-37.0) d/dL RDW (11.5-14.5) % Plt Count (150-450) k/uL Neutrophils # (1.80-7.70) X 10*3/uL Lymphocytes # (0.90-5.00) X 10*3/uL Eosinophils # (0.04-0.35) X 10*3/uL NRBC/100 WBC Diff (0.00-0.01) X 10*3/uL Sodium (135-145) mmol/L Chloride 116 H (98-107) mmol/L Carbon Dioxide 18 L (21.6-31.8) mmol/L Anion Gap (4.00-12.00) mmol/L BUN 18 H (7-17) mg/dL Creatinine 1.25 H (0.6-1.5) mg/dL Est GFR (CKD-EPI) (>=60) BUN/Creatinine Ratio (12.00-20.00) Ratio Calcium 8.0 L (8.7-10.3) mg/dL Total Protein 4.9 L (6.3-8.2) g/dL Albumin 2.3 L (3.5-5.0) g/dL Assessment and Plan (1) Current Visit: Yes Status: Acute Code(s): Z34.90 - ENCNTR FOR SUPRVSN OF NORMAL , UNSP, UNSP TRIMESTER SNOMED Code(s): 53432256 (2) Calculus of kidney Current Visit: No Status: Acute Code(s): N20.0 - CALCULUS OF KIDNEY SNOMED Code(s): 50448253 (3) Calculus of ureter Current Visit: No Status: Acute Code(s): N20.1 - CALCULUS OF URETER SNOMED Code(s): 57798470 Plan: Given essentially complete resolution of the pain, it is likely the stone passed. I would strongly consider discharging the patient home with continued oral antibiotics to cover for urinary tract infection per infectious disease. She should follow up with her normal package clerk in the next several days.
--- NOTE | 2023-06-16 10:01 | P.DS ---
Providers Date of admission: 06/12/23 16:39 Expected date of discharge: 06/14/23 Attending physician: Bob Grande Consults: 06/12/23 17:17 Consult Physician Routine Consulting Provider: Nicholas Chou Consult Reason/Comments: Hydronephrosis in Do you want consulting provider notified?: Yes 06/13/23 09:00 Consult Physician Routine Consulting Provider: Lucian Alcazar Consult Reason/Comments: Pyelonephritis Do you want consulting provider notified?: Yes Primary care physician: Stated None Hospital Course: Final diagnosis Pyelonephritis third trimester , 28 weeks history of kidney stones gi prophylaxis DVT prophylaxis full code Discharge disposition Patient is being discharged in a stable condition with guarded prognosis to home . Patient will follow-up with pcp as well as OBGYN in the outpatient setting upon discharge as already scheduled. Patient is to continue with ceftin for 5 days to complete the course. Total time taken is greater than 35 minutes. Hospital course This is a 37-year-old female who was recently admitted with concerns for pyelonephritis and is 28 weeks . She presented with left flank pain and was evaluated by urology and most likely passed the stone as she is having no pain and has been cleared by urology for discharge. Patient will continue on a short course of ceftin on discharge to complete the course. Please refer to other consult notes for further hpi. Patient is extremely anxious to discharge home and has been cleared by consult. Currently no reports of chest pain, shortness of breath, or palpitations. Patient is afebrile. No reports of nausea or vomiting and patient is tolerating diet. Patient will be discharged home today. Guarded prognosis. Physical exam: Gen: This is a 37-year-old female who is awake, alert and oriented 3, well- developed, well-nourished HEENT: Head is atraumatic, normocephalic. Pupils equal, round. Sclerae is anicteric. NECK: Supple. No JVD. No lymphadenopathy. No thyromegaly. LUNGS: Clear to auscultation. No wheezes or rhonchi. No intercostal retractions. HEART: Regular rate and rhythm. No murmur. ABDOMEN: Soft. Bowel sounds are present. No masses. No tenderness. EXTREMITIES: No pedal edema. No calf tenderness. NEUROLOGICAL: Patient is awake, alert and oriented x3. Cranial nerves 2 through 12 are grossly intact. Please refer to medication reconciliation sheet for a list of medications. The impression and plan of care has been dictated by Maris Alfredo, Nurse Practitioner as directed. Dr. Harjinder MD I have performed a history and examination and MDM of this patient, discussed the same with the dictator, and agree with the dictator's assessment and plan as written ,documented as a scribe. Based on total visit time, I have performed more than 50% of the visit. Patient Condition at Discharge: Fair Plan - Discharge Summary New Discharge Prescriptions: New cefUROXime axetiL [Ceftin] 500 mg PO BID 5 Days #10 tab Tamsulosin [Flomax] 0.4 mg PO PC-SUPPER #14 cap Acetaminophen Tab [Tylenol] 650 mg PO Q6HR PRN tab PRN Reason: Mild Pain Or Fever > 100.5 Discharge Medication List Acetaminophen Tab [Tylenol] 650 mg PO Q6HR PRN tab 06/14/23 [Rx] Tamsulosin [Flomax] 0.4 mg PO PC-SUPPER #14 cap 06/14/23 [Rx] cefUROXime axetiL [Ceftin] 500 mg PO BID 5 Days #10 tab 06/14/23 [Rx] Follow up Appointment(s)/Referral(s): None,Stated [Primary Care Provider] - 1-2 days Patient Instructions/Handouts: Kidney Stones (DC) Activity/Diet/Wound Care/Special Instructions: follow up with obgyn at scheduled appt follow up urology outpatient continue antibiotics until complete follow up with pcp on discharge Discharge Disposition: HOME SELF-CARE
== END 2023-06-14 12:48 | disposition home or self-care (01) | DRG 832 ==
LOC: EC 14:49 → 4SSUR 16:39 → 4FBP 06-13 15:44
PROVIDERS: ADMIT Hospitalist; ATTEND Hospitalist
DX: O23.03 Infections of kidney in pregnancy, third trimester (principal); N13.6 Pyonephrosis; Z28.310 Unvaccinated for COVID-19; Z87.442 Personal history of urinary calculi; Z87.891 Personal history of nicotine dependence; Z87.440 Personal history of urinary (tract) infections; O09.523 Supervision of elderly multigravida, third trimester; Z3A.28 28 weeks gestation of pregnancy
CPT/HCPCS: 36415; 76770; 76805; 80048; 80053; 81001; 81025; 85025; 87086; 96361; 96365; 96375; 99285

== ENCOUNTER 2023-07-18 06:13 | Inpatient (IN) | payer OTHER ==
[2023-07-18] MEDS ORDERED: HYDROmorphone 0.5 MG/0.5 ML SYRINGE IVP PRN (06:28)
[2023-07-18] MEDS: LACTATED RINGERS 1,000 ML IV SCH ×4 (06:34→17:08)
[2023-07-18] MEDS ORDERED: HYDROmorphone 0.5 MG/0.5 ML SYRINGE IVP STA (07:44)
[2023-07-18 08:10] LABS: Anisocytosis Slight; Basophils % (A) 0 %; Eosinophils % (A) 0 %; HCT 34.8 % (34.0-46.0); Hypochromasia Moderate; Lymphocytes # (A) 0.5 k/uL (1.0-4.8); Lymphocytes % (A) 7 %; MCH 26.7 pg (25.0-35.0); MCHC 31.9 g/dL (31.0-37.0); MCV 83.4 fL (80.0-100.0); Monocytes # (A) 0.1 k/uL (0-1.0); Monocytes % (A) 1 %; Neutrophils # (A) 7.5 k/uL (1.3-7.7); Neutrophils % (A) 91 %; Platelet Count 175 k/uL (150-450); Poikilocytosis Slight; RBC 4.17 m/uL (3.80-5.40); RDW 16.4 % (11.5-15.5); WBC 8.3 k/uL (3.8-10.6)
[2023-07-18 08:12] LABS: HGB 11.1 gm/dL (11.4-16.0)
[2023-07-18 08:14] LABS: ALT 14 U/L (4-34); AST 23 U/L (14-36); African American GFR (CKD) 64 (>60 ml/min/1.73 sqM); Blood Urea Nitrogen 15 mg/dL (7-17); LDH 280 U/L (120-246); Non-African American GFR(CKD) 56 (>60 ml/min/1.73 sqM); Uric Acid 5.4 mg/dL (3.7-7.4)
[2023-07-18 08:31] LABS: Appearance,Urine Cloudy (Clear); Bacteria,Urine Rare /hpf; Bilirubin,Urine Negative (Negative); Blood,Urine Moderate (Negative); Color,Urine Colorless; Glucose,Urine (UA) Negative (Negative); Ketones,Urine Negative (Negative); Leukocyte Esterase,Urine Large (Negative); Nitrite,Urine Negative (Negative); Protein,Urine 1+ (Negative); RBC,Urine 62 /hpf (0-5); Specific Gravity,Urine 1.009 (1.001-1.035); Squamous Epithelial Cell,Urine 9 /hpf (0-4); Urobilinogen,Urine <2.0 mg/dL (<2.0); WBC,Urine 150 /hpf (0-5)
[2023-07-18] MEDS ORDERED: LABETALOL 5 MG/ML VIAL MDV IVP PRN ×3 (08:33)
[2023-07-18] MEDS ORDERED: hydrALAZINE HCL 20 MG/ML 1 ML VIAL IVP PRN (08:33)
[2023-07-18 09:20] LABS: Amphetamine Screen,Urine Detected (NotDetected); Barbiturate Screen,Urine Not Detected (NotDetected); Benzodiazepines Screen,Urine Not Detected (NotDetected); Cocaine Screen,Urine Not Detected (NotDetected); Methadone Screen, Urine Not Detected (NotDetected); Opiate Screen,Urine Detected (NotDetected); Oxycodone Screen, Urine Not Detected (NotDetected); Phencyclidine Screen,Urine Not Detected (NotDetected); Tricyclic Antidepressant,Urine Not Detected (NotDetected); Urn Cannabinoid Scrn Not Detected (NotDetected)
[2023-07-18] MEDS ORDERED: LACTATED RINGERS 1,000 ML IV SCH (10:30)
[2023-07-18] MEDS ORDERED: HYDROmorphone PCA 10 MG/50 ML BAG IV PRN (10:32)
[2023-07-18] MEDS ORDERED: METOCLOPRAMIDE 5 MG/ML 2 ML VIAL IVP PRN (10:32)
[2023-07-18] MEDS ORDERED: ONDANSETRON 4 MG/2 ML VIAL IVP PRN (10:32)
[2023-07-18] MEDS ORDERED: NALOXONE 0.4 MG/ML 1 ML VIAL IV PRN (10:32)
--- NOTE | 2023-07-18 10:44 | P.HPOB ---
History of Present Illness H&P Date: 07/18/23 Chief Complaint: 35+ weeks, acute left flank pain with nephrolithiasis The patient is a 37-year-old 6 para 5 who presented through the emergency room with acute onset of left flank pain last night in the middle of the night. She had a previous similar admission at which time nephrolithiasis was diagnosed and this is presumed to be the same. Her has reportedly been otherwise uncomplicated though she is planning on adoption of the child to a couple in [place] and has been commuting to [place] once monthly for care. She was due to go to [place] this month where she would remain until delivery. All of her previous pregnancies have been delivered by section. On labor and delivery, all signs are reassuring with a category 1 heart rate tracing though she recently had a single short variable deceleration. She presented with fairly significant elevations in blood pressure and was treated with labetalol which has normalized her blood pressures at this time. The pain was thought to be secondary to acute pain. Nevertheless, laboratory workup was undertaken for -induced hypertension/preeclampsia which is negative. She will be admitted for management of her acute pain and aggressive IV hydration. Obstetrical history: 6 para 5 with previous section deliveries at term. Current statistics are unavailable as there is no record that we are aware of at this point. Efforts will be made to obtain her record tomorrow when normal business hours resumed. She did have an ultrasound here in the hospital at her last admission approximate 4 weeks ago which demonstrated normal growth and normal findings otherwise. Gynecologic history: Unremarkable and noncontributory to current episode. Review of Systems Review of systems is confined to history of present illness. Past Medical History Past Medical History: No Reported History Additional Past Medical History / Comment(s): Hx of and current kidney stones. History of Any Multi-Drug Resistant Organisms: None Reported Past Surgical History: Section, Cholecystectomy Past Anesthesia/Blood Transfusion Reactions: No Reported Reaction Smoking Status: Never smoker - Past Family History Mother Family Medical History: No Reported History Medications and Allergies Home Medications Medication Instructions Recorded Confirmed Type Vit No.179/Iron/Folic 1 tab PO DAILY 07/18/23 07/18/23 History [ Tablet] Allergies Allergy/AdvReac Type Severity Reaction Status Date / Time No Known Allergies Allergy Verified 07/18/23 06:16 Exam Intake and Output 07/17/23 07/18/23 07/18/23 22:59 06:59 14:59 Other: Weight 74.843 kg In general, this is a well-developed, well-nourished female in significant d iscomfort with specific pain radiating in the left flank area. Her heart has a regular rhythm and rate without murmur. Her lungs are clear to auscultation bilaterally in all barnes. Her abdomen is gravid, nondistended, has normal active bowel sounds, is soft, nontender, and without any palpable masses aside from uterine fundus which is appropriate for gestational age. Her extremities are without any cyanosis, clubbing, or significant edema and are nontender to palpation bilaterally. Digital cervical examination is deferred. Results Result Diagrams: 07/18/23 06:30 07/18/23 06:30 Abnormal Lab Results - Last 24 Hours (Table) 07/18/23 07/18/23 07/18/23 Range/Units 06:30 06:30 07:30 Hgb 11.1 L D (11.4-16.0) gm/dL RDW 16.4 H (11.5-15.5) % Lymphocytes # 0.5 L (1.0-4.8) k/uL Creatinine 1.23 H (0.52-1.04) mg/dL Lactate Dehydrogenase 280 H (120-246) U/L Urine Appearance Cloudy H (Clear) Urine Protein 1+ H (Negative) Urine Blood Moderate H (Negative) Ur Leukocyte Esterase Large H (Negative) Urine RBC 62 H (0-5) /hpf Urine WBC 150 H (0-5) /hpf Ur Squamous Epith Cells 9 H (0-4) /hpf Urine Bacteria Rare H (None) /hpf Urine Opiates Screen (NotDetected) Ur Amphetamines Screen (NotDetected) U Methamphetamines Scrn (NotDetected) 07/18/23 Range/Units 07:30 Hgb (11.4-16.0) gm/dL RDW (11.5-15.5) % Lymphocytes # (1.0-4.8) k/uL Creatinine (0.52-1.04) mg/dL Lactate Dehydrogenase (120-246) U/L Urine Appearance (Clear) Urine Protein (Negative) Urine Blood (Negative) Ur Leukocyte Esterase (Negative) Urine RBC (0-5) /hpf Urine WBC (0-5) /hpf Ur Squamous Epith Cells (0-4) /hpf Urine Bacteria (None) /hpf Urine Opiates Screen Detected H (NotDetected) Ur Amphetamines Screen Detected H (NotDetected) U Methamphetamines Scrn Detected H (NotDetected) Assessment and Plan (1) 35 weeks gestation of Current Visit: Yes Status: Acute Code(s): Z3A.35 - 35 WEEKS GESTATION OF SNOMED Code(s): 35668141 (2) Calculus of ureter Current Visit: No Status: Acute Code(s): N20.1 - CALCULUS OF URETER SNOMED Code(s): 15790280 (3) Calculus of kidney Current Visit: Yes Status: Acute Code(s): N20.0 - CALCULUS OF KIDNEY SNOMED Code(s): 25345948 (4) Left flank pain Current Visit: Yes Status: Acute Code(s): R10.9 - UNSPECIFIED ABDOMINAL PAIN SNOMED Code(s): 207226020 Plan: Urinalysis is suggestive of urinary tract infection in the face of known nephrolithiasis. The patient is admitted for aggressive IV hydration with approximately 3 L bolused and her fluids will continue at 150 mL per hour. She will be allowed a regular diet if she can tolerate it. I've additionally started Unasyn 3 g IV every 8 hours to cover for urinary tract infection. Her vitals have normalized but we will continue to monitor them at a 4 hour interval for the time being. She will have continuous monitoring at this time but likely will be decreased to a nonstress test each shift assuming all remains stable. As noted above, efforts will be made to obtain her record from [place] tomorrow when office hours are open. She will continue at this time have close maternal and surveillance.
[2023-07-18 10:58] LABS: Creatinine,Urine Random 40.5 mg/dL; Protein/Creatinine Ratio,Urine 1.704
[2023-07-18] MEDS: AMPICILLIN-SULBACTAM 3 GM in SODIUM CHLORIDE 0.9% 100 ML IVPB SCH ×2 (11:06→20:59)
--- NOTE | 2023-07-18 11:11 | P.MSEPDOC ---
Presenting Problems - Arrival Data Date of Arrival on Unit: 07/18/23 Time of Arrival on Unit: 06:15 Mode of Transport: Wheelchair - Complaint OB-Reason for Admission/Chief Complaint: Pain Comment: left flank pain related to kidny stone. Medical History - Information : 6 Para: 5 Term: 5 : 0 Abortions: Spontaneous or Elective: 0 Number of Living Children: 5 - Gestational Age Gestational Age by ABBEY (wks/days): 35 Weeks and 2 Days - History Complications: Hx. Substance Abuse Comment: pt states that she has history of drug use and just found out she was in march Review of Systems - Review of Systems Constitutional: No problems Breast: No problems ENT: No problems Cardiovascular: No problems Respiratory: No problems Gastrointestinal: No problems Genitourinary: Dysuria Musculoskeletal: No problems Neurological: No problems Skin: No problems Vital Signs - Pulse Pulse Oximetery Pulse Assessment Method: Pulse Oximetry - Respirations Respiratory Rate: 18 Oxygen Delivery Method: Room Air O2 Sat by Pulse Oximetry: 97 - Blood Pressure Right Arm Blood Pressure: 128/62 Blood Pressure Mean: 84 Blood Pressure Source: Automatic Cuff Medical Screen Scoring - Assessment - Baby A Baseline FHR: 150 Heart Rate - NICHD Category: Category II (Indeterminate) NST: Reactive Physician Notification - Physician Notified Physician Notified Date: 07/18/23 Physician Notified Time: 10:15 Physician: Nicholas Chou New Order Received: Yes (admit pt for pain control and antibiotics) Maternal Triage Index - Maternal Triage Index Presenting for scheduled procedure w/no complaint: No - Stat/Priority 1 Stat Priority 1: No - Urgent/Priority 2 Urgent Priority 2: Yes Provider Notified: Nicholas Chou Provider Notified Time: 06:28 Criteria Met for Priority 2: Emerita RN notified about pts complaints and BP's. new orders to hydrate with 2 L and give 0.5 of dilaudid Disposition - Disposition OB Disposition: Admit Transferred to:: 18 I agree with the RN Medical Screening Exam: Yes Case reviewed; plan agreed upon as documented in EMR&OBIX.: Yes Diagnosis: RELATED CONDITIONS, UNSPECIFIED, THIRD TRIMESTER
--- NOTE | 2023-07-18 12:47 | US ---
EXAMINATION TYPE: US OB limited DATE OF EXAM: 07/18/2023 COMPARISON: OB ultrasound 06/14/2023. CLINICAL INDICATION: Female, 37 years old with history of SHANITA; patient in pain and agitated during ex am, due date versus dates ranged from 08/12/23 to 08/19/23, around 35 weeks EXAM PERFORMED: OBTA GESTATIONAL AGE / DATING No growth performed on today?s study per ordering physician SURVEY SHANITA: 10.6 cm Normal Ultrasound evidence of premature rupture of membranes? no HEART RATE: 144 bpm RHYTHM: Normal IMPRESSION: Limited exam secondary to patient tolerance. Appropriate SHANITA and heart rate.
[2023-07-18] MEDS ORDERED: CITRIC ACID-SODIUM CITRATE 15 ML CUP PO ONE (15:18)
[2023-07-18] MEDS ORDERED: ceFAZolin 1,000 MG VIAL ONE (15:25)
[2023-07-18] MEDS ORDERED: OXYTOCIN 30 UNITS/500 ML NS BAG IV ONE (15:25)
[2023-07-18] MEDS ORDERED: SODIUM CHLORIDE 0.9% 100 ML BAG ONE (15:25)
[2023-07-18] MEDS ORDERED: KETOROLAC 30 MG/ML 1 ML VIAL ONE (15:25)
[2023-07-18] MEDS ORDERED: PHENYLEPHRINE-0.9% NACL SYG 1,000 MCG/10 ML SYRINGE ONE (15:25)
[2023-07-18] MEDS ORDERED: fentaNYL (PF) 50 MCG/ML 2 ML AMP ONE (15:25)
[2023-07-18] MEDS ORDERED: ONDANSETRON 4 MG/2 ML VIAL ONE (15:25)
[2023-07-18] MEDS ORDERED: diphenhydrAMINE 25 MG CAP PO PRN (16:19)
[2023-07-18] MEDS ORDERED: SIMETHICONE 80 MG CHEWABLE PO PRN (16:19)
[2023-07-18] MEDS ORDERED: diphenhydrAMINE 50 MG/ML 1 ML VIAL IVP PRN ×2 (16:19)
[2023-07-18] MEDS ORDERED: ZOLPIDEM 5 MG TAB PO PRN (16:19)
[2023-07-18] MEDS ORDERED: OXYTOCIN 30 UNITS/500 ML NS 30 UNIT in SALINE 1 500ML.BAG IV SCH (16:30)
--- NOTE | 2023-07-18 16:32 | P.OP ---
Date of Procedure: 07/18/23 Preoperative Diagnosis: #1. 35-2/7 weeks, previous sections #2. Category 2 heart rate tracing, repetitive deep variable decelerations Postoperative Diagnosis: Same Procedure(s) Performed: #1. Repeat low transverse section Anesthesia: spinal Surgeon: Nicholas Chou Leather Belt Maker #1: Shanta Gil Estimated Blood Loss (ml): 460 IV fluids (ml): 800 Urine output (ml): 200 Pathology: other (Placenta) Condition: stable Disposition: floor Operative Findings: Preoperatively, the patient had been admitted for management of acute left flank pain thought to be secondary to recurrent nephrolithiasis. While managing that, the patient was kept on continuous monitoring as she had random and occasionally deep. Decelerations which then became repetitive in nature. We were unable to monitor any significant contraction pattern consistent with labor, but that remains the most likely cause given the ultimate repetitive nature of the decelerations. Given her history of multiple previous sections and a plan for a repeat section, the patient was taken to the operating room for category 2 heart rate tracing. She was delivered of a viable 5 lbs. 9 oz. baby girl with Apgars of 8 at 1 minute and 9 at 5 minutes in the occiput transverse position. The head was encountered deep within the pelvis. The uterus, tubes, and ovaries were otherwise normal to inspection. There was adequate lower uterine segment tissue for reapproximation and the bladder was thought to be significantly distal from the uterine incision site. Nevertheless, at the end of the case there was obvious blood in the urine which may have been caused by the depth of the head in the pelvis and trauma to the Miller catheter balloon at the neck of the bladder. The placenta was delivered manually, intact, and grossly normal with a grossly normal three- vessel cord. Description of Procedure: The patient was taken the operating room where she was prepped and draped in usual fashion after spinal anesthesia was established by the anesthesiologist. A Pfannenstiel incision was made through pre-existing scar and extended into the abdominal cavity without significant difficulty. The bladder peritoneum was felt to be significantly distal to the intended site of uterine incision was left intact. A 2 cm incision was made in the transverse plane of the lower uterine segment of which there was still moderate tissue and thickness. This demonstrated clear fluid upon rupture of membranes. The incision was extended in both directions using the bandage scissors. The head was encountered deep within the maternal pelvis and was delivered up and through the incision where the nose and mouth were thoroughly suctioned. The remainder of the was delivered onto the field where the cord was doubly clamped, cut, and the passed resuscitative measures with weight and Apgars as noted above. The infant was taken to the special care nursery as the patient intends to adopt the baby out. cord blood was collected per protocol. The placenta was delivered manually and intact as noted above. The uterus was exteriorized and the interior cavity of the uterus swept of any remaining placental or membranous fragments. The margins of the uterine incision were grasped with Almaraz clamps and the incision was closed in 2 layers. The first layer was a running locking stitch of 0 chromic catgut followed by a running imbricating stitch of 0 chromic catgut, each from margin to margin. There was some blood noted in the catheter which had previously shown clear fluid after delivery of the fetus onto the field. The posterior cul-de-sac was suctioned with a guard and the uterine and ovarian findings were normal as noted above. The uterus was replaced within the abdominal cavity and the gutters were swept of any remaining blood, fluid, or clot. Uterine incision was reexamined and found to be hemostatic. The par ietal peritoneum was loosely reapproximated in the layer of muscles examined and made hemostatic with the Bovie. The fascia was closed with 2 running stitches of 0 Vicryl proceeding from the lateral margins to the midpoint. The subcutaneous tissues were irrigated, made hemostatic with the Bovie, and reapproximated with a running stitch of 30 plain catgut. The skin was reapproximated with a running subcuticular stitch of 4-0 Vicryl followed by half-inch Steri-Strips placed with Mastisol. Quantitative blood loss for the case was 460 mL. There were no complications aside from the blood noted in the Miller catheter collection bag at the end of the case. All sponge, instrument, and needle counts were correct. The patient tolerated the procedure well and proceeded to the recovery room in stable condition.
--- NOTE | 2023-07-18 17:01 | US ---
EXAMINATION TYPE: US kidneys/renal and bladder DATE OF EXAM: 07/18/2023 COMPARISON: 06/16/2023. CLINICAL INDICATION: Female, 37 years old with history of Presumptive nephrolithiasis, acute flank pa in; h/o renal stones, 35 weeks with severe left flank pain EXAM MEASUREMENTS: Right Kidney: 11.0 x 5.1 x 6.2 cm Left Kidney: 14.9 x 6.3 x 7.9 cm Right Kidney: Multiple stones seen, largest cluster superior pole = 2.3 x 1.6cm, mild hydronephrosis seen Left Kidney: large in size, multiple stones seen, largest superior pole = 1.1cm, moderate hydronephr osis seen Bladder: not distended No nephrolithiasis is seen. No masses are identified. The urinary bladder is anechoic. Bilateral u reteral jets are seen. IMPRESSION: 1. Multiple bilateral renal calculi. 2. There is mild dilation of the left renal collecting system could represent obstructive uropathy o n the left and normal physiologic dilation of the right.
[2023-07-18] MEDS: ACETAMINOPHEN TAB 500 MG TAB PO SCH (18:16)
[2023-07-18] MEDS ORDERED: oxyCODONE-APAP 5-325MG 1 EACH TAB PO PRN (20:27)
[2023-07-18] MEDS ORDERED: oxyCODONE-APAP 10-325MG 1 EACH TAB PO PRN (20:28)
[2023-07-18] MEDS: diphenhydrAMINE 50 MG CAP PO PRN (21:07)
[2023-07-18] MEDS: SENNOSIDES-DOCUSATE SODIUM 1 EACH TAB PO SCH (21:15)
[2023-07-19] MEDS: IBUPROFEN 600 MG TAB PO SCH ×5 (00:27→23:25)
[2023-07-19] MEDS: KETOROLAC 15 MG/ML 1 ML VIAL IVP PRN ×2 (00:29→05:57)
[2023-07-19] MEDS: LACTATED RINGERS 1,000 ML IV SCH ×3 (00:30→20:37)
[2023-07-19] MEDS: ACETAMINOPHEN TAB 500 MG TAB PO SCH ×4 (02:45→20:35)
[2023-07-19] MEDS: AMPICILLIN-SULBACTAM 3 GM in SODIUM CHLORIDE 0.9% 100 ML IVPB SCH ×2 (04:03→12:40)
--- NOTE | 2023-07-19 06:46 | P.PN ---
Progress Note - Text Progress Note Date: 07/19/23 Patient doing well. Ambulated w/o paresthesia or weakness. Denies headache. Denies pruritis. Pain controlled. Back - spinal site clean and dry A/P POD#1 s/p spinal w/ duramorph - continue multimodal analgesia
[2023-07-19 07:25] LABS: Anisocytosis Slight; HCT 21.5 % (34.0-46.0); Hypochromasia Slight; MCH 26.9 pg (25.0-35.0); MCHC 33.1 g/dL (31.0-37.0); MCV 81.3 fL (80.0-100.0); Mean Platelet Volume 13.2; Poikilocytosis Slight; RBC 2.64 m/uL (3.80-5.40); RDW 16.7 % (11.5-15.5); WBC 22.4 k/uL (3.8-10.6)
[2023-07-19 07:30] LABS: HGB 7.1 gm/dL (11.4-16.0)
[2023-07-19 07:31] LABS: Platelet Count 102 k/uL (150-450)
--- NOTE | 2023-07-19 08:00 | P.GSCN ---
History of Present Illness Consult date: 07/19/23 Reason for Consult: Left flank pain Requesting physician: Nicholas Chou History of present illness: The patient is a 37-year-old female with a history of urolithiasis. She underwent ureteroscopic removal of a left ureteral calculus and left renal calculi in November 2018. She presented to the ER yesterday with left flank pain. Ultrasound showed evidence of bilateral renal calculi and hydronephrosis, mild on the right and moderate on the left. She was approximately 35 weeks , and ultimately underwent section yesterday afternoon. She has experienced intermittent pain throughout the . A family from [place] intends to adopt the baby, and they will be traveling to [place] as soon as possible.. Review of Systems - Constitutional Denies chills, Denies fever - Gastrointestinal Reports nausea, Reports vomiting - Genitourinary Genitourinary: Reports flank pain, Reports hematuria, Reports kidney stones, Denies dysuria Past Medical History Past Medical History: No Reported History Additional Past Medical History / Comment(s): Hx of and current kidney stones. History of Any Multi-Drug Resistant Organisms: None Reported Past Surgical History: Section, Cholecystectomy Past Anesthesia/Blood Transfusion Reactions: No Reported Reaction Smoking Status: Never smoker - Past Family History Mother Family Medical History: No Reported History Medications and Allergies Home Medications Medication Instructions Recorded Confirmed Type Vit No.179/Iron/Folic 1 tab PO DAILY 07/18/23 07/18/23 History [ Tablet] Allergies Allergy/AdvReac Type Severity Reaction Status Date / Time No Known Allergies Allergy Verified 07/18/23 06:16 Surgical - Exam Vital Signs Resp BP Pulse Ox 18 128/62 97 07/18/23 10:28 07/18/23 10:28 07/18/23 10:28 - General well developed, well nourished, no distress - Neck no masses, trachea midline - Respiratory normal respiratory effort - Abdomen Soft, non-distended. Mild left CVA tenderness. No right CVA tenderness. - Psychiatric oriented to time, oriented to person, oriented to place, speech is normal, memory intact Results - Labs 07/19/23 07:04 07/18/23 06:30 Abnormal Lab Results - Last 24 Hours (Table) 07/18/23 07/18/23 07/18/23 Range/Units 06:30 06:30 07:30 Hgb 11.1 L D (11.4-16.0) gm/dL RDW 16.4 H (11.5-15.5) % Lymphocytes # 0.5 L (1.0-4.8) k/uL Creatinine 1.23 H (0.52-1.04) mg/dL Lactate Dehydrogenase 280 H (120-246) U/L Urine Appearance Cloudy H (Clear) Urine Protein 1+ H (Negative) Urine Blood Moderate H (Negative) Ur Leukocyte Esterase Large H (Negative) Urine RBC 62 H (0-5) /hpf Urine WBC 150 H (0-5) /hpf Ur Squamous Epith Cells 9 H (0-4) /hpf Urine Bacteria Rare H (None) /hpf Urine Opiates Screen (NotDetected) Ur Amphetamines Screen (NotDetected) U Methamphetamines Scrn (NotDetected) 07/18/23 Range/Units 07:30 Hgb (11.4-16.0) gm/dL RDW (11.5-15.5) % Lymphocytes # (1.0-4.8) k/uL Creatinine (0.52-1.04) mg/dL Lactate Dehydrogenase (120-246) U/L Urine Appearance (Clear) Urine Protein (Negative) Urine Blood (Negative) Ur Leukocyte Esterase (Negative) Urine RBC (0-5) /hpf Urine WBC (0-5) /hpf Ur Squamous Epith Cells (0-4) /hpf Urine Bacteria (None) /hpf Urine Opiates Screen Detected H (NotDetected) Ur Amphetamines Screen Detected H (NotDetected) U Methamphetamines Scrn Detected H (NotDetected) Diabetes panel 07/18/23 Range/Units 06:30 BUN 15 (7-17) mg/dL Creatinine 1.23 H (0.52-1.04) mg/dL AST 23 (14-36) U/L ALT 14 (4-34) U/L Pituitary panel 07/18/23 Range/Units 06:30 BUN 15 (7-17) mg/dL Creatinine 1.23 H (0.52-1.04) mg/dL Adrenal panel 07/18/23 Range/Units 06:30 BUN 15 (7-17) mg/dL Creatinine 1.23 H (0.52-1.04) mg/dL AST 23 (14-36) U/L ALT 14 (4-34) U/L - Imaging US - kidney/bladder: report reviewed Assessment and Plan (1) Calculus of kidney Current Visit: Yes Status: Acute Code(s): N20.0 - CALCULUS OF KIDNEY SNOMED Code(s): 38459048 (2) Hydronephrosis Current Visit: No Status: Acute Code(s): N13.30 - UNSPECIFIED HYDRONEPHROSIS SNOMED Code(s): 30405541 Plan: It is likely that the patient has bilateral renal calculi. She likely also has a left ureteral calculus causing the hydronephrosis and flank pain. A CT scan of the abdomen and pelvis has been ordered for further evaluation. Time with Patient: Greater than 30
[2023-07-19] MEDS: SENNOSIDES-DOCUSATE SODIUM 1 EACH TAB PO SCH ×2 (08:48→20:43)
--- NOTE | 2023-07-19 09:12 | CT ---
EXAMINATION TYPE: CT abdomen pelvis wo con DATE OF EXAM: 07/19/2023 HISTORY: left flank pain. Abnormal ultrasound. CT DLP: 769.3 mGycm. Automated Exposure Control for Dose Reduction was Utilized. TECHNIQUE: CT scan of the abdomen and pelvis is performed without oral or IV contrast. COMPARISON: Renal ultrasound one day earlier FINDINGS: Within the limitations of a non-contrast study, the following observations are made. LUNG BASES: Tiny left greater than right pleural effusions. LIVER/GB: Cholecystectomy clips are seen. PANCREAS: No significant abnormality is seen. SPLEEN: No significant abnormality is seen. ADRENALS: No significant abnormality is seen. KIDNEYS: Multiple bilateral tiny renal calculi. In addition there is larger 2.3 cm staghorn type calc ulus upper pole right kidney coronal image 66. There is minimal right-sided hydronephrosis. No obstru cting calculus. There is a 13 mm obstructing calculus in the proximal left ureter coronal image 59 ca using mild/moderate left-sided hydronephrosis BOWEL: No significant abnormality is seen. GENITAL ORGANS: Prominent anteverted heterogeneous uterus with central foci of air. Findings are pres umed product of recent and . LYMPH NODES: No greater than 1cm abdominal or pelvic lymph nodes are appreciated. OSSEOUS STRUCTURES: Moderate disc space narrowing and vacuum disc phenomenon at L5-S1 level. OTHER: Small amount of free air is seen. Small amount of subcutaneous air over the deep tissue of the anterior pelvic wall. Findings are consistent with recent . Mild fluid in the paracolic gut ters bilaterally. IMPRESSION: Recent noted likely accounting for pneumoperitoneum and small foci of gas withi n the uterus. Confirmation of bilateral nephrolithiasis. There is 13 mm calculus in the proximal left ureter causing [id number] left-sided hydronephrosis.
[2023-07-19 10:19] LABS: Band Neutrophils % 15 %; Lymphocytes # (M) 0.22 k/uL (1.0-4.8); Monocytes # (M) 0.22 k/uL (0-1.0); Neutrophils % (M) 83 %; Nucleated Red Blood Cells 0 /100 WBC (0-0); Total Cells Counted 100
--- NOTE | 2023-07-19 12:54 | P.PNOBGPC ---
Subjective - Subjective Patient reports: Reports appetite normal, Reports voiding normally, Reports pain well controlled, Reports ambulating normally : doing well, in NICU Objective - Vital Signs Latest vital signs: Vital Signs Temp Pulse Resp BP Pulse Ox 07/19/23 08:00 97.9 F 97 14 91/55 98 07/19/23 04:00 98.0 F 100 17 122/82 100 07/18/23 23:46 98.6 F 105 H 16 104/67 98 07/18/23 20:00 96.8 F L 106 H 17 101/67 97 07/18/23 18:17 96.6 F L 99 16 104/65 98 07/18/23 17:47 98 16 122/74 100 07/18/23 17:17 94 16 107/69 100 07/18/23 17:02 98 16 107/66 100 07/18/23 16:47 100 16 106/69 98 07/18/23 16:32 105 H 16 111/64 98 07/18/23 16:17 97.0 F L 104 H 16 114/74 100 Intake and Output 07/18/23 07/19/23 07/19/23 22:59 06:59 14:59 Output Total 460 450 400 Balance -460 -450 -400 Output: Urine 450 400 Uretheral (Miller) 400 Estimated Blood Loss 460 Other: Voiding Method Indwelling Catheter Indwelling Catheter # Voids 1 # Emeses 3 - Exam Extremities: Present: normal Abdomen: Present: normal appearance, soft. Absent: distention, tenderness Incision: Present: normal, dry, intact Uterus: Present: normal, firm (The uterine fundus is tonic and appropriately tender well below the umbilicus.) - Labs Labs: Abnormal Lab Results - Last 24 Hours (Table) 07/19/23 Range/Units 07:04 WBC 22.4 H (3.8-10.6) k/uL RBC 2.64 L (3.80-5.40) m/uL Hgb 7.1 L D (11.4-16.0) gm/dL Hct 21.5 L (34.0-46.0) % RDW 16.7 H (11.5-15.5) % Plt Count 102 L (150-450) k/uL Neutrophils # (Manual) 21.90 H (1.3-7.7) k/uL Lymphocytes # (Manual) 0.22 L (1.0-4.8) k/uL Assessment and Plan (1) 35 weeks gestation of Current Visit: Yes Status: Acute Code(s): Z3A.35 - 35 WEEKS GESTATION OF SNOMED Code(s): 47466430 (2) Calculus of ureter Current Visit: No Status: Acute Code(s): N20.1 - CALCULUS OF URETER SNOMED Code(s): 89074807 (3) Calculus of kidney Current Visit: Yes Status: Acute Code(s): N20.0 - CALCULUS OF KIDNEY SNOMED Code(s): 33318228 (4) Left flank pain Current Visit: Yes Status: Acute Code(s): R10.9 - UNSPECIFIED ABDOMINAL PAIN SNOMED Code(s): 520228373 (5) S/P section Current Visit: Yes Status: Acute Code(s): Z98.891 - HISTORY OF UTERINE SCAR FROM PREVIOUS SURGERY SNOMED Code(s): 245681752 Plan: Apparently the Miller catheter was somehow dislodged last night in the middle of the night and a phone call was not made to check on replacement. It was replaced this morning and the patient continued to have bloody urine present. She additionally had a significant drop in her hemoglobin from admission to postoperatively which is thought to be secondary to chemo dilution with a significant amount of IV hydration occurring in the early part of her admission. At this time, the urine in the catheter tubing appears to be clear. The patient has additionally been seen and evaluated by urology and the CAT scan has returned demonstrating multiple stones in both kidneys and a possibly obstructing calculus in the left ureter. As a result, Dr. Nj is planning to take her to the operating room for cystoscopy and ureteroscopy with a laser distraction of the stone and probable stent placement on the left side 2 days from now. This was additionally allow him to evaluate the dome of the bladder as to any potential for a stitch placed into the dome at the time of closure of the uterine incision. Should the urine continued to be clearing as the day goes on, the catheter will be removed this evening for patient comfort. We will continue IV antibiotics for the time being and make certain that her urine is being cultured. She otherwise is tolerating regular diet. I have asked the patient to ambulate in the hallways if possible. We will additionally recheck her hemoglobin this afternoon and then again tomorrow morning. Vital signs are stable with no evidence of ongoing bleeding either by CAT scan or clinically.
[2023-07-19] MEDS: diphenhydrAMINE 50 MG CAP PO PRN (13:56)
[2023-07-19 14:06] LABS: Anisocytosis Slight; Basophils % (A) 0 %; Eosinophils % (A) 0 %; HCT 21.8 % (34.0-46.0); Hypochromasia Moderate; Lymphocytes # (A) 0.6 k/uL (1.0-4.8); Lymphocytes % (A) 3 %; MCH 26.7 pg (25.0-35.0); MCHC 32.3 g/dL (31.0-37.0); MCV 82.7 fL (80.0-100.0); Mean Platelet Volume 13.4; Monocytes # (A) 0.3 k/uL (0-1.0); Monocytes % (A) 2 %; Neutrophils # (A) 20.8 k/uL (1.3-7.7); Neutrophils % (A) 95 %; Platelet Count 113 k/uL (150-450); Poikilocytosis Slight; RBC 2.63 m/uL (3.80-5.40); WBC 21.8 k/uL (3.8-10.6)
[2023-07-20] MEDS: LACTATED RINGERS 1,000 ML IV SCH ×3 (02:38→19:57)
[2023-07-20] MEDS: ACETAMINOPHEN TAB 500 MG TAB PO SCH ×4 (07:02→19:56)
[2023-07-20 07:21] LABS: Anisocytosis Slight; Basophils % (A) 0 %; Eosinophils % (A) 0 %; Hypochromasia Moderate; Lymphocytes # (A) 0.7 k/uL (1.0-4.8); Lymphocytes % (A) 3 %; MCHC 32.6 g/dL (31.0-37.0); MCV 82.7 fL (80.0-100.0); Mean Platelet Volume 13.5; Monocytes # (A) 0.4 k/uL (0-1.0); Monocytes % (A) 2 %; Neutrophils # (A) 23.8 k/uL (1.3-7.7); Neutrophils % (A) 94 %; Platelet Count 141 k/uL (150-450); Poikilocytosis Slight; RBC 2.54 m/uL (3.80-5.40); WBC 25.3 k/uL (3.8-10.6)
[2023-07-20 07:26] LABS: HGB 6.9 gm/dL (11.4-16.0)
[2023-07-20] MEDS: SENNOSIDES-DOCUSATE SODIUM 1 EACH TAB PO SCH ×2 (08:49→20:23)
[2023-07-20] MEDS: IBUPROFEN 600 MG TAB PO SCH ×4 (08:59→23:18)
--- NOTE | 2023-07-20 10:46 | P.PNOBGPC ---
Subjective - Subjective Interval history: The patient's pain continues to be primarily left flank in nature. She compl ains of very little incisional discomfort. She denies any signs or symptoms of orthostasis and is otherwise performing all activities of daily living. Patient reports: Reports appetite normal, Reports voiding normally, Reports pain well controlled, Reports ambulating normally [place]: doing well Objective - Vital Signs Latest vital signs: Vital Signs Temp Pulse Resp BP Pulse Ox 07/20/23 08:00 97.5 F L 94 16 103/62 98 07/19/23 23:56 97.9 F 92 16 120/60 98 07/19/23 20:00 97.8 F 91 16 118/70 07/19/23 16:00 98.4 F 96 16 97/58 07/19/23 12:00 98.0 F 96 14 93/58 Intake and Output 07/19/23 07/20/23 07/20/23 22:59 06:59 14:59 Output Total 300 1100 850 Balance -300 -1100 -850 Output: Urine 300 1100 850 Uretheral (Miller) 300 Other: # Voids 1 1 - Exam Extremities: Present: normal Abdomen: Present: normal appearance, soft. Absent: distention, tenderness Incision: Present: normal, dry, intact Uterus: Present: normal, firm (The uterine fundus as tonic and appropriately tender below the umbilicus.) - Labs Labs: Abnormal Lab Results - Last 24 Hours (Table) 07/19/23 07/20/23 Range/Units 13:32 06:35 WBC 21.8 H 25.3 H (3.8-10.6) k/uL RBC 2.63 L 2.54 L (3.80-5.40) m/uL Hgb 7.0 L 6.9 L* (11.4-16.0) gm/dL Hct 21.8 L 21.0 L (34.0-46.0) % RDW 17.0 H 17.0 H (11.5-15.5) % Plt Count 113 L 141 L (150-450) k/uL Neutrophils # 20.8 H 23.8 H (1.3-7.7) k/uL Lymphocytes # 0.6 L 0.7 L (1.0-4.8) k/uL Assessment and Plan (1) 35 weeks gestation of Current Visit: Yes Status: Acute Code(s): Z3A.35 - 35 WEEKS GESTATION OF SNOMED Code(s): 96771229 (2) Calculus of ureter Current Visit: No Status: Acute Code(s): N20.1 - CALCULUS OF URETER SNOMED Code(s): 22506193 (3) Calculus of kidney Current Visit: Yes Status: Acute Code(s): N20.0 - CALCULUS OF KIDNEY SNOMED Code(s): 32675973 (4) Left flank pain Current Visit: Yes Status: Acute Code(s): R10.9 - UNSPECIFIED ABDOMINAL PAIN SNOMED Code(s): 087251233 (5) S/P section Current Visit: Yes Status: Acute Code(s): Z98.891 - HISTORY OF UTERINE SCAR FROM PREVIOUS SURGERY SNOMED Code(s): 771310647 Plan: Continue routine and postoperative care. The patient is scheduled for surgical intervention for her left ureteral stone tomorrow. We anticipate the ability to discharge her following completion of those procedures. In the meantime, I have asked the patient to continue to ambulate routinely in the hallways.
[2023-07-20] MEDS: diphenhydrAMINE 50 MG CAP PO PRN (16:37)
[2023-07-21] MEDS: LACTATED RINGERS 1,000 ML IV SCH (01:35)
[2023-07-21] MEDS: ACETAMINOPHEN TAB 500 MG TAB PO SCH (02:54)
[2023-07-21] MEDS: IBUPROFEN 600 MG TAB PO SCH (06:17)
[2023-07-21] MEDS: KETOROLAC 15 MG/ML 1 ML VIAL IVP PRN (06:17)
[2023-07-21] MEDS ORDERED: LACTATED RINGERS 1,000 ML IV SCH (07:07)
[2023-07-21] MEDS ORDERED: HYDROmorphone 0.5 MG/0.5 ML SYRINGE IVP PRN (07:07)
[2023-07-21] MEDS: SENNOSIDES-DOCUSATE SODIUM 1 EACH TAB PO SCH (08:26)
--- NOTE | 2023-07-21 12:12 | P.DS ---
Providers Date of admission: 07/18/23 15:02 Expected date of discharge: 07/21/23 Attending physician: Nicholas Chou Consults: 07/18/23 13:42 Consult Physician Urgent Consulting Provider: Jean Carlos Nj Consult Reason/Comments: 35 weeks intrauterine , nephrolithiasis with superimposed infectio Do you want consulting provider notified?: Already Contacted Primary care physician: Stated None - Discharge Diagnosis(es) (1) 35 weeks gestation of Current Visit: Yes Status: Acute (2) Calculus of ureter Current Visit: No Status: Acute (3) Calculus of kidney Current Visit: Yes Status: Acute (4) Left flank pain Current Visit: Yes Status: Acute (5) S/P section Current Visit: Yes Status: Acute Hospital Course: The patient is a 37-year-old 6 para 5 who has received all of her care in [place] as she is intending to adopt the baby to a couple in that state. She presents to our labor and delivery at 35-2/7 weeks by dating parameters that we don't have documentation for with a recurrence of what appears to be acute left flank pain secondary to nephrolithiasis. 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 Shortly after admission, she began to have deep random variable decelerations on heart rate tracing. She was noted to have some contractions but her cervix was checked and she was closed, thick, and high. Over the course of several hours, the decelerations became more persistent and more regular and ultimately led to the decision to deliver the patient for indications. She was taken the operating room where she was delivered of a viable 5 lbs. 9 oz. baby girl with Apgars of 8 at 1 minute and 9 at 5 minutes with no findings to explain the category 2 heart rate tracing. The head was deep in the pelvis which led to the presumption that she was likely an undiagnosed labor. The pro cedure itself was uncomplicated though she was noted to have blood in her urine following the procedure which was thought to be secondary to trauma with the Miller bulb secondary to the depth of the head in the pelvis. Urology was consulted regarding her calculi and she then underwent a CAT scan which demonstrated a left ureteral calculus and plan was made to take her to the operating room to excise or laser it. The blood in the urine cleared over the course of the next 12-24 hours. The patient has been deemed stable for discharge on and postoperative day #3 pending the outcome of her urologic procedures which are scheduled for this afternoon. If all goes as anticipated, she will be discharged home after the procedure to follow-up in my office in 2 weeks and then 6 weeks. Discharge instructions included calling for any significantly increased bleeding, foul-smelling lochia, significantly increased fever or abdominal pain, perineal complaints, breast complaints, inc isional complaints, or anything else that concerned her. She was additionally instructed to have nothing in the vagina for at least 6 weeks time to include intercourse. She understood all of her instructions and agrees to follow up as noted above. Discharge medications included iytu-xaw-uqvzuyz analgesic pain medications as well as a prescription for Tylenol 3, 1-2 by mouth every 6 hours when necessary pain, #20 dispensed with no refills. She additionally was instructed to use iron sulfate 325 mg 1-2 times daily to recoup her blood count. Maternal blood type is O+ and rubella status is reportedly immune. Discharge hemoglobin and hematocrit were 6.9 and 21.0 which was stable over the course of 3 days and the patient was asymptomatic. Procedures: #1. IV hydration #2. IV pain control #3. Limited ultrasound #4. Renal ultrasound #5. Repeat low transverse section #6. Urology consultation #7. CT of the abdomen and pelvis #8. Cystoscopy with ureteroscopy and stent placement and other indicated surgery Patient Condition at Discharge: Stable Plan - Discharge Summary New Discharge Prescriptions: No Action Vit No.179/Iron/Folic [ Tablet] 1 tab PO DAILY Discharge Medication List Vit No.179/Iron/Folic [ Tablet] 1 tab PO DAILY 07/18/23 [History] Follow up Appointment(s)/Referral(s): Nicholas Chou MD [STAFF PHYSICIAN] - 2 Weeks Discharge Disposition: HOME SELF-CARE
[2023-07-21] MEDS ORDERED: LACTATED RINGERS 1,000 ML IV ONE (13:25)
[2023-07-21] MEDS ORDERED: FAMOTIDINE 20 MG/2 ML VIAL IVP ONE (13:40)
[2023-07-21] MEDS ORDERED: METOCLOPRAMIDE 5 MG/ML 2 ML VIAL IVP ONE (13:40)
[2023-07-21] MEDS ORDERED: DEXAMETHASONE SOD PHOSPHATE 4 MG/ML 1 ML VIAL IVP ONE (13:40)
[2023-07-21] MEDS ORDERED: ONDANSETRON 4 MG/2 ML VIAL IVP ONE (13:41)
[2023-07-21] MEDS ORDERED: diphenhydrAMINE 50 MG/ML 1 ML VIAL IVP ONE (13:41)
[2023-07-21 14:00] LABS: Anisocytosis Slight; HCT 21.7 % (34.0-46.0); HGB 7.1 gm/dL (11.4-16.0); Hypochromasia Slight; MCH 26.4 pg (25.0-35.0); MCHC 32.8 g/dL (31.0-37.0); MCV 80.5 fL (80.0-100.0); Mean Platelet Volume 11.6; Platelet Count 205 k/uL (150-450); Poikilocytosis Moderate; RBC 2.69 m/uL (3.80-5.40); RDW 16.8 % (11.5-15.5)
[2023-07-21 14:01] LABS: ALT 13 U/L (4-34); AST 20 U/L (14-36); African American GFR (CKD) 45 (>60 ml/min/1.73 sqM); Albumin 2.2 g/dL (3.5-5.0); Alkaline Phosphatase 141 U/L (38-126); Anion Gap 7 mmol/L; Blood Urea Nitrogen 30 mg/dL (7-17); Calcium 7.5 mg/dL (8.4-10.2); Carbon Dioxide 20 mmol/L (22-30); Chloride 112 mmol/L (98-107); Glucose 50 mg/dL (74-99); Non-African American GFR(CKD) 39 (>60 ml/min/1.73 sqM); Potassium 3.7 mmol/L (3.5-5.1); Sodium 139 mmol/L (137-145); Total Bilirubin 0.3 mg/dL (0.2-1.3); Total Protein 4.7 g/dL (6.3-8.2)
[2023-07-21 14:58] LABS: Band Neutrophils % 1 %; Eosinophils # (M) 0.41 k/uL (0-0.7); Large Platelets Present; Lymphocytes # (M) 1.43 k/uL (1.0-4.8); Monocytes # (M) 0.41 k/uL (0-1.0); Neutrophils % (M) 88 %; Nucleated Red Blood Cells 2 /100 WBC (0-0); Polychromasia Present; Total Cells Counted 100; WBC 20.4 k/uL (3.8-10.6)
[2023-07-21] MEDS ORDERED: GLYCOPYRROLATE 0.2 MG/ML 2 ML VIAL ONE (14:58)
[2023-07-21] MEDS ORDERED: LIDOCAINE 1% INJ 10MG/ML (20 ML MDV) ONE (14:58)
[2023-07-21] MEDS ORDERED: PROPOFOL 10 MG/ML 20 ML VIAL IV ONE (14:58)
[2023-07-21] MEDS ORDERED: fentaNYL (PF) 50 MCG/ML 2 ML AMP ONE (14:58)
[2023-07-21] MEDS ORDERED: SUCCINYLCHOLINE CHLORIDE 200 MG/10 ML VIAL IV ONE (14:58)
[2023-07-21] MEDS ORDERED: ROCURONIUM 10 MG/ML (5 ML VIAL) IV ONE (14:58)
[2023-07-21] MEDS ORDERED: NEOSTIGMINE 1 MG/ML 10 ML VIAL ONE (14:58)
[2023-07-21] MEDS ORDERED: SUGAMMADEX SODIUM 200 MG/2 ML SDV IV ONE (14:58)
--- NOTE | 2023-07-21 16:22 | P.OP ---
Date of Procedure: 07/21/23 Preoperative Diagnosis: Left ureteral calculus Postoperative Diagnosis: Same Procedure(s) Performed: Cystoscopy, left ureteroscopy with holmium laser lithotripsy, left ureteral stent insertion Anesthesia: BRETTA Surgeon: Jean Carlos Nj Estimated Blood Loss (ml): 0 IV fluids (ml): 900 Pathology: none sent Condition: stable Disposition: PACU Indications for Procedure: The patient is a 37-year-old female with a history of urolithiasis. She underwent ureteroscopic removal of a left ureteral calculus and left renal calculi in November 2018. She presented to the ER with left flank pain several days ago. Ultrasound showed evidence of bilateral renal calculi and hydronephrosis, mild on the right and moderate on the left. She was approximately 35 weeks , and ultimately underwent section. A CT scan was then obtained, revealing mild to moderate left hydronephrosis due to a 13 mm left proximal ureteral calculus. Also seen is a 2.3 cm right upper pole calculus, with minimal right hydronephrosis. The patient is symptomatic on the left side and has elected to undergo ureteroscopic removal of the left proximal ureteral calculus. Operative Findings: Left proximal ureteral calculus, very soft and easily fragmented. Description of Procedure: The patient was taken to the operating room and placed in the dorsolithotomy position, with legs supported in Jimmie stirrups. The external genitalia was prepped and draped sterilely. The 30 lens was used to introduce the 21-Danish Mills cystoscopic sheath through the urethra and into the bladder under direct vision. The bladder was examined in its entirety. Both ureteral orifices were normal anatomic location and configuration, and clear urine effluxed from both. No tumors or foreign bodies were seen. The Mills semirigid ureteroscope was advanced into the bladder, and the left ureteral orifice was cannulated. The ureteroscope was advanced up to the left proximal ureter, which was somewhat tortuous. A 0.035 inch Glidewire was passed through the ureteroscope, which was then advanced over the wire, up to the calculus. However, it was not possible to perform laser lithotripsy. The ureteroscope was withdrawn and then passed alongside the Glidewire, but again lithotripsy was not feasible. Therefore, the Mills BEW [employer] flexible ureteroscope was passed into the bladder. The left ureteral orifice was cannulated, and the ureteroscope was advanced under direct vision, alongside the wire, up to the calculus. The 272 micron Holmium laser probe was passed through the ureteroscope, and lithotripsy was performed. The calculus was very soft and fragmented readily. Lithotripsy was performed using a dusting mode, leaving no residual calculus fragments exceeding 1 mm. Pullout ureteroscopy showed no evidence of ureteral trauma. The Glidewire was backloaded into the cystoscope, which was passed into the bladder. A 24 cm, 4.8-Danish double-J ureteral stent was placed over the wire. Proper stent positioning was verified fluoroscopically and endoscopically. The bladder was emptied and the cystoscope removed. The patient tolerated the procedure well and was taken to the recovery room in stable condition. MUSIC ROCKS Report: Procedure Acuity: Urgent Stone Size and Location: 13 mm, left proximal ureter Ureteral Dilation: No Ureteral Access Sheath Used: No Stone Sent for Analysis: No All Stones/Fragments Were Removed with a Basket: No Complications: No Preoperative Antibiotics Given: Yes Stent Placed: Yes If Stent Placed, Was String Left Attached: No If Stent Placed, When is it to be Removed: 1 week Discharge Medications: Toradol
[2023-07-21 16:43] VITALS: TEMP 96.9
[2023-07-21 18:04] VITALS: RESP 16
[2023-07-21 20:17] VITALS: PULSE 82
[2023-07-21 20:43] VITALS: BP 154/84
== END 2023-07-21 19:25 | disposition home or self-care (01) | DRG 540 ==
LOC: FBPOP 06:13 → 4FBP 10:12 → OBSVTOIN 15:02
PROVIDERS: ADMIT Obstetrics & Gynecology; ATTEND Obstetrics & Gynecology
PROC: 4A0HXCZ Measurement of Products of Conception, Cardiac Rate, External Approach (ICD-10-PCS; 2023-07-18)
PROC: 10D00Z1 Extraction of Products of Conception, Low, Open Approach (ICD-10-PCS; principal; 2023-07-18 15:04)
PROC: 0T778DZ Dilation of Left Ureter with Intraluminal Device, Via Natural or Artificial Opening Endoscopic (ICD-10-PCS; 2023-07-21 14:00)
PROC: 0TC78ZZ Extirpation of Matter from Left Ureter, Via Natural or Artificial Opening Endoscopic (ICD-10-PCS; 2023-07-21 14:00)
DX: O34.211 Maternal care for low transverse scar from previous cesarean delivery (principal); O76 Abnormality in fetal heart rate and rhythm complicating labor and delivery; O99.892 Other specified diseases and conditions complicating childbirth; N13.30 Unspecified hydronephrosis; O32.2XX0 Maternal care for transverse and oblique lie, not applicable or unspecified; Z37.0 Single live birth; Z3A.35 35 weeks gestation of pregnancy; Z87.442 Personal history of urinary calculi; Z90.49 Acquired absence of other specified parts of digestive tract
CPT/HCPCS: 59025; 74176; 76770; 76815; 80053; 80306; 81001; 82565; 82570; 83615; 84156; 84450; 84460; 84520; 84550; 85025; 86850; 86900; 86901; 87086; 88307; 96361; 96374; 99215

== ENCOUNTER 2023-07-30 15:11 | Outpatient (CLI) | payer OTHER ==
[2023-07-30 16:16] LABS: Anisocytosis Slight; Basophils % (A) 0 %; Eosinophils # (A) 0.1 k/uL (0-0.7); Eosinophils % (A) 1 %; HCT 28.6 % (34.0-46.0); Hypochromasia Marked; Lymphocytes # (A) 1.3 k/uL (1.0-4.8); Lymphocytes % (A) 11 %; MCH 26.2 pg (25.0-35.0); MCHC 31.1 g/dL (31.0-37.0); Mean Platelet Volume 7.8; Monocytes # (A) 0.3 k/uL (0-1.0); Monocytes % (A) 3 %; Neutrophils # (A) 9.5 k/uL (1.3-7.7); Neutrophils % (A) 83 %; Poikilocytosis Slight; RBC 3.41 m/uL (3.80-5.40); RDW 17.8 % (11.5-15.5); WBC 11.5 k/uL (3.8-10.6)
[2023-07-30 16:23] LABS: HGB 8.9 gm/dL (11.4-16.0); Platelet Count 494 k/uL (150-450)
== END 2023-07-30 16:40 | disposition home or self-care (01) ==
LOC: FBPOP 15:11
PROVIDERS: ATTEND Obstetrics & Gynecology
DX: O72.2 Delayed and secondary postpartum hemorrhage (principal); F17.200 Nicotine dependence, unspecified, uncomplicated
CPT/HCPCS: 85025; G0463; 99213

== ENCOUNTER → 2023-09-20 | Outpatient (CLI) | payer OTHER ==
[2023-09-21 02:34] LABS: BUN/Creat Ratio 17.73 Ratio (12.00-20.00); Blood Urea Nitrogen 19.5 mg/dL (9.0-27.0); Calcium 9.4 mg/dL (8.7-10.3); Carbon Dioxide 21.6 mmol/L (21.6-31.8); Chloride 107 mmol/L (96-109); Glucose 120 mg/dL (70-110); Potassium 3.9 mmol/L (3.5-5.5); Sodium 142 mmol/L (135-145)
[2023-09-21 02:39] LABS: Basophils # (A) 0.03 X 10*3/uL (0.00-0.10); Basophils % (A) 0.4 %; Eosinophils # (A) 0.16 X 10*3/uL (0.04-0.35); Eosinophils % (A) 2.2 %; HCT 33.3 % (37.2-46.3); HGB 9.3 g/dL (12.0-15.0); Lymphocytes # (A) 1.86 X 10*3/uL (0.90-5.00); MCHC 27.9 g/dL (32.0-37.0); MCV 78.7 FL (80.0-97.0); Mean Platelet Volume 10.9 FL (9.5-12.2); Monocytes # (A) 0.61 X 10*3/uL (0.20-1.00); Monocytes % (A) 8.2 %; NRBC Per 100 WBC 0 X 10*3/uL (0.00-0.01); Neutrophils # (A) 4.76 X 10*3/uL (1.80-7.70); Neutrophils % (A) 64.1 %; Platelet Count 317 X 10*3/uL (140-440); RBC 4.23 X 10*6/uL (4.10-5.20); WBC 7.43 X 10*3/uL (4.50-10.00)
== END | disposition home or self-care (01) ==
LOC: LABPAT 14:41
PROVIDERS: ATTEND Urology
DX: Z01.812 Encounter for preprocedural laboratory examination (principal); N20.0 Calculus of kidney
CPT/HCPCS: 36415; 80048; 85025; 87086

== ENCOUNTER 2023-09-23 08:52 | Day surgery (SDC) | payer OTHER ==
--- NOTE | 2023-09-18 09:23 | P.GSHP ---
History of Present Illness H&P Date: 09/18/23 Chief Complaint: Right renal calculus The patient is a 37-year-old female with a history of urolithiasis. She underwent ureteroscopic removal of a left ureteral calculus and left renal calculi in November 2018. She presented to the ER in late June 2023 with left flank pain. Ultrasound showed evidence of bilateral renal calculi and hydronephrosis, mild on the right and moderate on the left. She was approximately 35 weeks , and ultimately underwent section. The CT scan showed mild to moderate left hydronephrosis due to a 13 mm left proximal ureteral calculus. Also seen was a 2.3 cm right upper pole calculus, with minimal right hydronephrosis. The patient wa symptomatic on the left side. She underwent ureteroscopic removal of the left proximal ureteral calculus, which was very soft. Her left ureteral stent remains in place. She has elected to undergo left ureteral stent removal, as well as ureteroscopic removal of the right renal calculus. She is aware that she may require a secondary procedure on the right side given the stone burden. - Constitutional Constitutional: Denies chills, Denies fever - Genitourinary (Female) Genitourinary: Reports flank pain, Reports kidney stones, Denies dysuria Past Medical History Past Medical History: No Reported History Additional Past Medical History / Comment(s): Hx of and current kidney stones, hole in heart size of dime from - no issues- Monitored by PCP. insomnia History of Any Multi-Drug Resistant Organisms: None Reported Past Surgical History: Section, Cholecystectomy Additional Past Surgical History / Comment(s): cystoscopy, lithotripsy with stent Past Anesthesia/Blood Transfusion Reactions: No Reported Reaction Smoking Status: Former smoker, Light tobacco smoker - Past Family History Mother Family Medical History: No Reported History Medications and Allergies Home Medications Medication Instructions Recorded Confirmed Type No Known Home Medications 09/17/23 09/17/23 History Allergies Allergy/AdvReac Type Severity Reaction Status Date / Time No Known Allergies Allergy Verified 09/17/23 13:43 Surgical - Exam - General well developed, well nourished, no distress - Respiratory normal respiratory effort - Abdomen Abdomen: soft, non tender, no guarding, no rigid, no rebound - Psychiatric oriented to time, oriented to person, oriented to place, speech is normal, memory intact Results - Imaging CT scan - abdomen: report reviewed, image reviewed Assessment and Plan (1) Calculus of kidney Status: Acute Code(s): N20.0 - CALCULUS OF KIDNEY SNOMED Code(s): 63107192 Plan: Cystoscopy, left ureteral stent removal, right ureteroscopy with Holmium laser lithotripsy and possible stone basketing, right ureteral stent insertion. The patient is aware of potential risks, which include anesthesia, bleeding, infection, ureteral injury, and inability to complete the procedure in a single setting.
[~2023-09-23 08:52] MED LIST changes: -CIPROFLOXACIN/DEXTROSE PMX 400 MG in DEXTROSE/WATER 1 200ML.BAG IVPB ONE; -DEXAMETHASONE SOD PHOSPHATE 10 MG/ML 1 ML VIAL IV ONE; +DEXAMETHASONE SOD PHOSPHATE 4 MG/ML 1 ML VIAL IV ONE; +LIDOCAINE 1% (10MG/ML) FOR IV START INTRADERMA PRN; -LIDOCAINE 1% 20 ML VIAL (10MG/ML) FOR IV START INTRADERMA PRN; -MIDAZOLAM 2 MG/2 ML VIAL IV PRN; -SCOPOLAMINE 1.5MG/72HR PATCH TRANSDERM ONE; +droPERidol 5 MG/2 ML VIAL IVP ONE
--- NOTE | 2023-09-23 09:11 | XR ---
EXAMINATION TYPE: XR KUB DATE OF EXAM: 09/23/2023 Comparison: 11/24/2018 Clinical History: 37-year-old female N20.0 right renal calculus LEFT ureteral calculus Findings: Moderate stool burden. Cholecystectomy clips. No suspicious calcifications are seen. Nonobstructive b owel gas pattern. Impression: Moderate stool burden. Cholecystectomy clips. Left ureteral stent. No suspicious calcification clearl y identified.
[2023-09-23 09:32] VITALS: BP 158/99; PULSE 82; RESP 16; TEMP 98
[2023-09-23] MEDS: LACTATED RINGERS 1,000 ML IV ONE (09:40)
[2023-09-23] MEDS: DEXAMETHASONE SOD PHOSPHATE 4 MG/ML 1 ML VIAL IVP ONE (09:44)
[2023-09-23] MEDS: ONDANSETRON 4 MG/2 ML VIAL IVP ONE (09:44)
== END 2023-09-23 10:09 | disposition home or self-care (01) ==
LOC: OR 08:52
PROVIDERS: ATTEND Urology
DX: Z53.8 Procedure and treatment not carried out for other reasons (principal); N20.0 Calculus of kidney; Z87.442 Personal history of urinary calculi; Z87.891 Personal history of nicotine dependence; Z90.49 Acquired absence of other specified parts of digestive tract
CPT/HCPCS: 74018; J1100; J2405

== ENCOUNTER 2023-09-30 08:24 | Day surgery (SDC) | payer OTHER ==
[~2023-09-30 08:24] MED LIST changes: -HYDROmorphone 0.5 MG/0.5 ML SYRINGE IVP PRN; -LACTATED RINGERS 1,000 ML IV SCH; +MIDAZOLAM 2 MG/2 ML VIAL IV PRN; -droPERidol 5 MG/2 ML VIAL IVP ONE
--- NOTE | 2023-09-30 08:42 | XR ---
EXAMINATION TYPE: XR KUB DATE OF EXAM: 09/30/2023 HISTORY: Pain Comparison: September 23, 2023Single KUB is submitted for interpretation. Findings: Right renal calculi: Small calculi scattered throughout the right kidney noted. There is also a large r calculus measuring 2.9 x 1.1 cm midpole right kidney. Right ureteral calculi: None Visualized. Left renal calculi: None Visualized. Left ureteral calculi: Double pigtail catheter left ureter is unchanged in position. Small calculi u pper pole left kidney are stable. Pelvic calcifications: None Visualized. Bowel gas pattern is unremarkable. No free air. No mass effects. IMPRESSION: 1. As above
[2023-09-30] MEDS: LACTATED RINGERS 1,000 ML IV SCH (09:07)
[2023-09-30] MEDS ORDERED: LIDOCAINE 1% INJ 10MG/ML (20 ML MDV) ONE (11:21)
[2023-09-30] MEDS ORDERED: fentaNYL (PF) 50 MCG/ML 2 ML AMP ONE (11:21)
[2023-09-30] MEDS ORDERED: KETOROLAC 15 MG/ML 1 ML VIAL ONE (11:21)
[2023-09-30] MEDS ORDERED: PROPOFOL 10 MG/ML 20 ML VIAL IV ONE (11:21)
[2023-09-30] MEDS ORDERED: MIDAZOLAM 2 MG/2 ML VIAL ONE (11:21)
[2023-09-30] MEDS ORDERED: HYDROmorphone (PF) 1 MG/ML ONE (11:21)
--- NOTE | 2023-09-30 13:21 | FL ---
Fluoroscopy History: CYSTOSCOPY LITHO BILATERAL dap .[id number], 19 sec fluoro
[2023-09-30] MEDS: HYDROmorphone 0.5 MG/0.5 ML SYRINGE IVP PRN (13:23)
[2023-09-30] MEDS: IV FLUID CONTINUATION 1,000 ML IV ONE (13:30)
[2023-09-30 13:34] VITALS: TEMP 98.9
[2023-09-30 14:36] VITALS: RESP 18
--- NOTE | 2023-09-30 14:47 | P.OP ---
Date of Procedure: 09/30/23 Preoperative Diagnosis: Left ureteral calculus, right renal calculus Postoperative Diagnosis: Left ureteral calculus, retained left ureteral stent Procedure(s) Performed: Cystoscopy, left ureteroscopy with Holmium laser lithotripsy and stone basketing, left ureteral stent removal Anesthesia: BRETTA Surgeon: Jean Carlos Nj Estimated Blood Loss (ml): 5 IV fluids (ml): 800 Pathology: none sent Condition: stable Disposition: PACU Indications for Procedure: The patient is a 37-year-old female with a history of urolithiasis. She underwent ureteroscopic removal of a left ureteral calculus and left renal calculi in November 2018. She presented to the ER in late June 2023 with left flank pain. Ultrasound showed evidence of bilateral renal calculi and hydronephrosis, mild on the right and moderate on the left. She was approximately 35 weeks , and ultimately underwent section. The CT scan showed mild to moderate left hydronephrosis due to a 13 mm left proximal ureteral calculus. Also seen was a 2.3 cm right upper pole calculus, with minimal right hydronephrosis. The patient wa symptomatic on the left side. She underwent ureteroscopic removal of the left proximal ureteral calculus, which was very soft. Her left ureteral stent remains in place. She has elected to undergo left ureteral stent removal, as well as ureteroscopic removal of the right renal calculus. She is aware that she may require a secondary procedure on the right side given the stone burden. Operative Findings: Calcified left proximal ureteral stent. These calcifications were lasered away from the stent, and the stent was removed successfully. Description of Procedure: The patient was taken to the operating room and placed in the dorsolithotomy position, with legs supported in Jimmie stirrups. The external genitalia was prepped and draped sterilely. The 30 lens was used to introduce the 21-[place] cystoscopic sheath through the urethra and into the bladder under direct vision. The bladder was examined in its entirety. The right ureteral orifice appeared normal. Grasping forceps were used to grasp the distal end of the left ureteral stent. However, as the cystoscope was withdrawn, it was apparent that the stent could not be pulled out. Fluoroscopy showed that the proximal end of the stent failed to uncurl. An attempt was made to pass the 0.035 inch Glidewire through the stent, but the lumen was occluded. The [place] semirigid ureteroscope was advanced into the bladder, and the left ureteral orifice was cannulated. The ureteroscope was advanced alongside the stent, up to the proximal curl of the stent. It was evident that the proximal curl of the stent was calcified. The 272 m holmium laser probe was passed through the ureteroscope, but due to angulation issues lithotripsy could not be performed. Therefore, the [employer] flexible ureteroscope was advanced in the bladder, and the left ureteral orifice was cannulated. The ureteroscope was advanced under direct vision, but redundant stent in the ureter precluded passage of the flexible ureteroscope up to the calcified proximal curl of the stent. Therefore, the 272 m holmium laser probe was used to cut the stent in half. It was then possible to advance the ureteroscope up to the proximal curl of the stent, which was calcified. Lithotripsy was performed, and it was then possible to remove the stent along with the ureteroscope. Given that the calculus appears to be of struvite composition, multiple passes were made into the ureter to remove fragments with the 0 tip nitinol basket. Upon completion of the procedure, there were no residual calculus fragments seen within the ureter, and no evidence of ureteral trauma. The cystoscope was replaced into the bladder, and the bladder drained. The patient tolerated the procedure well and was taken to the recovery room in stable condition.
[2023-09-30 15:07] VITALS: BP 142/83; PULSE 74
== END 2023-09-30 15:17 | disposition home or self-care (01) ==
LOC: OR 08:24
PROVIDERS: ATTEND Urology
DX: T83.192A Other mechanical complication of indwelling ureteral stent, initial encounter (principal); N20.2 Calculus of kidney with calculus of ureter; Z87.442 Personal history of urinary calculi; Y83.8 Other surgical procedures as the cause of abnormal reaction of the patient, or of later complication, without mention of misadventure at the time of the procedure
CPT/HCPCS: 81025; 74018; 52353; C1769; J2250; J0690; J2001; J3010; J1170 ×2; J1885; J2704

== ENCOUNTER 2023-09-30 23:10 | Emergency (ER) | payer OTHER ==
[2023-10-01] MEDS: HYDROmorphone 1 MG/ML 1 ML SYRINGE IM STA (00:41)
[2023-10-01] MEDS: ONDANSETRON ODT 4 MG TAB PO STA (00:42)
--- NOTE | 2023-10-01 01:53 | ED ---
Back Pain HPI - General Chief Complaint: Back Pain/Injury Stated Complaint: Kidney stones Time Seen by Provider: 10/01/23 00:10 Source: patient Limitations: no limitations - History of Present Illness Initial Comments: 38-year-old female presenting with chief complaint of flank pain. Patient had surgery with Dr. Nj today, she had a left-sided renal stent removed. They had planned to insert a right-sided stent today but were unable to. She has been having worsening pain. Pain is mainly on the left side. She states that she has also had difficulty urinating. She is currently on Cipro due to recent procedure. She admits to nausea from the pain. No fevers. - Related Data Previous Rx's Medication Instructions Recorded HYDROcodone/APAP 7.5-325MG [[place] 1 tab PO Q6HR PRN 3 Days #12 tab 10/01/23 7.5-325] Allergies Allergy/AdvReac Type Severity Reaction Status Date / Time No Known Allergies Allergy Verified 09/30/23 23:20 Review of Systems ROS Statement: Those systems with pertinent positive or pertinent negative responses have been documented in the HPI. ROS Other: All systems not noted in ROS Statement are negative. Past Medical History Past Medical History: No Reported History Additional Past Medical History / Comment(s): Current UTI. Hx of and current kidney stones, hole in heart size of dime from - no issues- Monitored by P CP. Anemia, insomnia History of Any Multi-Drug Resistant Organisms: None Reported Past Surgical History: Section, Cholecystectomy Additional Past Surgical History / Comment(s): cystoscopy, lithotripsy with stent Past Anesthesia/Blood Transfusion Reactions: No Reported Reaction Past Psychological History: No Psychological Hx Reported Smoking Status: Former smoker, Light tobacco smoker Past Alcohol Use History: None Reported Past Drug Use History: None Reported - Past Family History Mother Family Medical History: No Reported History General Exam Limitations: no limitations General appearance: alert, in distress (Patient is in pain) Head exam: Present: atraumatic, normocephalic Eye exam: Present: normal appearance Neck exam: Present: normal inspection Respiratory exam: Present: normal lung sounds bilaterally. Absent: respiratory distress, wheezes, rales, rhonchi, stridor Cardiovascular Exam: Present: regular rate, normal rhythm, normal heart sounds. Absent: systolic murmur, diastolic murmur, rubs, gallop, clicks Back exam: Present: normal inspection, CVA tenderness (R), CVA tenderness (L) Neurological exam: Present: alert, oriented X3 Psychiatric exam: Present: normal affect, normal mood Skin exam: Present: warm, dry Course Vital Signs 09/30/23 10/01/23 10/01/23 23:18 02:32 04:51 Temperature 98 F 97.9 F Pulse Rate 100 84 86 Respiratory 18 16 18 Rate Blood Pressure 178/97 156/90 150/77 O2 Sat by Pulse 100 98 99 Oximetry Medical Decision Making - Medical Decision Making Was pt. sent in by a medical professional or institution (, PA, LAP CHECKER, urgent care, hospital, or half-way...) When possible be specific @ -No Did you speak to anyone other than the patient for history (EMS, parent, family, police, friend...)? What history was obtained from this source @ -No Did you review nursing and triage notes (agree or disagree)? Why? @ -I reviewed and agree with nursing and triage notes Were old charts reviewed (outside hosp., previous admission, EMS record, old EKG, old radiological studies, urgent care reports/EKG's, half-way records)? Report findings @ -No old charts were reviewed Differential Diagnosis (chest pain, altered mental status, abdominal pain women, abdominal pain men, vaginal bleeding, weakness, fever, dyspnea, syncope, headache, dizziness, GI bleed, back pain, seizure, CVA, palpatations, mental health, musculoskeletal)? @ - MDM Differential Back Pain: Strain, zoster, cauda equina syndrome, epidural abscess, vertebral osteomyelitis, discitis, fracture, subluxation, disc herniation, DJD, spinal stenosis, dissection, AAA, pancreatitis, peptic ulcer disease, pyelonephritis, kidney stone this is not meant to be an all-inclusive list. EKG interpreted by me (3pts min.). @ -As above X-rays interpreted by me (1pt min.). @ -None done CT interpreted by me (1pt min.). @ -CT shows obstructive 9 x 5 x 8 mm calculus within the left proximal ureter with upstream mild left renal hydronephrosis and perinephritic and periureteral stranding. Additional gas in the left renal collecting system. Obstructive 5 x 4 x 6 mm calculus within the left mid ureter. Please note that diffuse stranding is noted along the course of the left ureter which may relate to other recently passed calculi. No evidence of obstructive renal calculi in the right kidney. Nonobstructive renal calculi bilaterally including staghorn calculus in the atrophic right kidney measuring up to 1.9 cm. Gas in the bladder dome. U/S interpreted by me (1pt. min.). @ -None done What testing was considered but not performed or refused? (CT, X-rays, U/S, labs)? Why? @ -None What meds were considered but not given or refused? Why? @ -None Did you discuss the management of the patient with other professionals (professionals i.e. , PA, LAP CHECKER, lab, RT, psych nurse, social service agency director, senior software developer, teacher, fire officer, case planner)? Give summary @ -I spoke with Dr. Nj who states he plans on doing surgery for the patient in the near future and that if the patient's pain is controlled she may follow- up in the office, otherwise she may be admitted for stent insertion. Was smoking cessation discussed for >3mins.? @ -No Was critical care preformed (if so, how long)? @ -No Were there social determinants of health that impacted care today? How? (Homelessness, low income, unemployed, alcoholism, drug addiction, transportation, low edu. Level, literacy, decrease access to med. care, intermediate, rehab)? @ -No Was there de-escalation of care discussed even if they declined (Discuss DNR or withdrawal of care, Hospice)? DNR status @ -No What co-morbidities impacted this encounter? (DM, HTN, Smoking, COPD, CAD, Cancer, CVA, ARF, Chemo, Hep., AIDS, mental health diagnosis, sleep apnea, m orbid obesity)? @ -None Was patient admitted / discharged? Hospital course, mention meds given and route, prescriptions, significant lab abnormalities, going to OR and other pertinent info. @ -38-year-old female presenting with chief complaint of left-sided flank pain. She had a left-sided ureteral stent removed by Dr. Nj today. History and physical exam were conducted. Patient is given pain medication. CT shows left- sided obstructive calculi with mild hydronephrosis. There is gas seen on CT which relates to instrumentation earlier today. I discussed these findings with the patient's urologist Dr. Nj, he states that the patient may follow-up in the office if her pain is under control at this time. On reassessment patient states the pain is improved and she would prefer to follow-up in the office. She is instructed to continue taking her antibiotic and educated on alarm symptoms. Follow-up with PCP. Report back to ER with any new or worsening symptoms. Discussed return parameters and answered all questions. Patient conveyed verbal understanding and agreed to the plan. I discussed this case in detail with my attending Dr. Parker Undiagnosed new problem with uncertain prognosis? @ -No Drug Therapy requiring intensive monitoring for toxicity (Heparin, Nitro, Insulin, Cardizem)? @ -No Were any procedures done? @ -No Diagnosis/symptom? @ -Kidney stone Acute, or Chronic, or Acute on Chronic? @ -Acute Uncomplicated (without systemic symptoms) or Complicated (systemic symptoms)? @ -Uncomplicated Side effects of treatment? @ -No Exacerbation, Progression, or Severe Exacerbation? @ -No Poses a threat to life or bodily function? How? (Chest pain, [place], [place], pneumonia, PE, COPD, DKA, ARF, appy, cholecystitis, CVA, Diverticulitis, Homicidal, Suicidal, threat to staff... and all critical care pts) @ -No Disposition Clinical Impression: Kidney stone Disposition: HOME SELF-CARE Condition: Good Instructions (If sedation given, give patient instructions): Kidney Stones (ED) Additional Instructions: Follow-up with urologist. Continue antibiotics as prescribed. Report back to ER with any new or worsening symptoms. Prescriptions: HYDROcodone/APAP 7.5-325MG [[place] 7.5-325] 1 tab PO Q6HR PRN 3 Days #12 tab PRN Reason: Pain Is patient prescribed a controlled substance at d/c from ED?: Yes When asked, does pt state using other controlled substances?: No If prescribed controlled substance>3 days was MAPS reviewed?: Prescribed <3 Days If opioid is for acute pain is fill amount 7 days or less?: Yes Referrals: Jean Carlos Nj MD [STAFF PHYSICIAN] - 1-2 days Time of Disposition: 04:31
--- NOTE | 2023-10-01 04:13 | CT ---
EXAM: CT Abdomen and Pelvis Without Intravenous Contrast CLINICAL HISTORY: ITS.REASON CT Reason: flank pain, worse on left TECHNIQUE: Axial computed tomography images of the abdomen and pelvis without intravenous contrast. CTDI is 9.2 mGy and DLP is 553.7 mGy-cm. This CT exam was performed using one or more of the following dose reduction techniques: automated exposure control, adjustment of the mA and/or kV according to patient size, and/or use of iterative reconstruction technique. COMPARISON: No relevant prior studies available. FINDINGS: Limitations: Limited evaluation in the absence of contrast. Lung bases: Dependent scarring noted at the left lung base. No consolidation. ABDOMEN: Liver: Unremarkable. Gallbladder and bile ducts: Unremarkable. No calcified stones. No ductal dilation. Pancreas: Unremarkable. No ductal dilation. Spleen: Unremarkable. No splenomegaly. Adrenals: Unremarkable. No mass. Kidneys and ureters: Obstructive 9 x 5 x 8 mm calculus within the left proximal ureter (noted on asbestos cement sheet supervisor imaging) with upstream mild left renal hydronephrosis with perinephric and periureteral stranding. Additional gas in the left renal collecting system which likely relates to superimposed infection. Obstructive 5 x 4 x 6 mm calculus within the left mid ureter. Please note that diffuse stranding is noted along the course of the left ureter which may relate to other recently passed calculi or concurrent sequelae of infection. No evidence of obstructive renal calculi in the right kidney. Nonobstructive renal calculi bilaterally including staghorn calculus in the atrophic right kidney measuring up to 1.9 cm. Stomach and bowel: No evidence of bowel obstruction. No mucosal thickening. PELVIS: Appendix: Normal appendix. Bladder: Gas in the bladder dome which may be due to cystitis. No stones. Reproductive: Unremarkable as visualized. ABDOMEN and PELVIS: Intraperitoneal space: Unremarkable. No free air. No significant fluid collection. Bones/joints: Degenerative changes in the spine. No acute fracture. No dislocation. Soft tissues: Umbilical hernia containing fat. Vasculature: Unremarkable. No abdominal aortic aneurysm. Lymph nodes: Unremarkable. No enlarged lymph nodes. IMPRESSION: 1. Obstructive 9 x 5 x 8 mm calculus within the left proximal ureter (noted on asbestos cement sheet supervisor imaging) with upstream mild left renal hydronephrosis with perinephric and periureteral stranding. Additional gas in the left renal collecting system which likely relates to superimposed infection. 2. Obstructive 5 x 4 x 6 mm calculus within the left mid ureter. 3. Please note that diffuse stranding is noted along the course of the left ureter which may relate to other recently passed calculi or concurrent sequelae of infection. 4. No evidence of obstructive renal calculi in the right kidney. 5. Nonobstructive renal calculi bilaterally including staghorn calculus in the atrophic right kidney measuring up to 1.9 cm. 6. Gas in the bladder dome which may be due to cystitis. <MYCVCSECTION> Communications: 10/01/23 04:20 Verify Receipt Verified receipt with JEAN Mckenna for Dr. Parker on 10/01 04:20 (-05:00)
[2023-10-01] MEDS: HYDROmorphone 0.5 MG/0.5 ML SYRINGE IVP STA (04:42)
[2023-10-01] MEDS: KETOROLAC 15 MG/ML 1 ML VIAL IVP STA (04:42)
[2023-10-01] MEDS: KETOROLAC 15 MG/ML 1 ML VIAL IM STA (04:47)
[2023-10-01] MEDS: HYDROmorphone 0.5 MG/0.5 ML SYRINGE IM STA (04:47)
[2023-10-01 05:03] VITALS: BP 150/77; PULSE 86; RESP 18; TEMP 97.9
== END 2023-10-01 04:53 | disposition home or self-care (01) ==
LOC: EC 10-01 00:51
DX: N13.2 Hydronephrosis with renal and ureteral calculous obstruction (principal); N26.1 Atrophy of kidney (terminal); F17.200 Nicotine dependence, unspecified, uncomplicated; Z90.49 Acquired absence of other specified parts of digestive tract; Z87.440 Personal history of urinary (tract) infections
CPT/HCPCS: 99284 ×2; 96372 ×4; 74176; J1170 ×2; J1885

== ENCOUNTER 2023-10-07 06:51 | Day surgery (SDC) | payer OTHER ==
--- NOTE | 2023-10-04 16:55 | P.GSHP ---
History of Present Illness H&P Date: 10/04/23 Chief Complaint: Flank pain The patient is a 37-year-old female with a history of urolithiasis. She underwent ureteroscopic removal of a left ureteral calculus and left renal calculi in November 2018. She presented to the ER in late June 2023 with left flank pain. Ultrasound showed evidence of bilateral renal calculi and hydronephrosis, mild on the right and moderate on the left. She was approximately 35 weeks , and ultimately underwent section. The CT scan showed mild to moderate left hydronephrosis due to a 13 mm left proximal ureteral calculus. Also seen was a 2.3 cm right upper pole calculus, with minimal right hydronephrosis. The patient wa symptomatic on the left side. She underwent ureteroscopic removal of the left proximal ureteral calculus, which was very soft. Her left ureteral stent remained in place until recently, when she underwent complicated removal of her left ureteral stent. The proximal end of the stent was calcified, and lithotripsy was performed to enable removal of the stent. She presented to the ER that night and was found to have 2 left ureteral calculi. - Constitutional Constitutional: Denies chills, Denies fever - Genitourinary (Female) Genitourinary: Reports flank pain, Reports kidney stones Past Medical History Past Medical History: No Reported History Additional Past Medical History / Comment(s): Current UTI. 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 Anemia, insomnia History of Any Multi-Drug Resistant Organisms: None Reported Past Surgical History: Section, Cholecystectomy Additional Past Surgical History / Comment(s): cystoscopy, lithotripsy with stent Past Anesthesia/Blood Transfusion Reactions: No Reported Reaction Past Psychological History: No Psychological Hx Reported Smoking Status: Former smoker, Light tobacco smoker Past Alcohol Use History: None Reported Past Drug Use History: None Reported - Past Family History Mother Family Medical History: No Reported History Medications and Allergies Home Medications Medication Instructions Recorded Confirmed Type HYDROcodone/APAP 7.5-325MG [[place] 1 tab PO Q6HR PRN 3 Days #12 tab 10/01/23 Rx 7.5-325] Allergies Allergy/AdvReac Type Severity Reaction Status Date / Time No Known Allergies Allergy Verified 09/30/23 23:20 Surgical - Exam - General well developed, well nourished, no distress - Respiratory normal respiratory effort - Abdomen Abdomen: soft, non tender, no guarding, no rigid, no rebound - Genitourinary normal external genitalia - Psychiatric oriented to time, oriented to person, oriented to place, speech is normal, memory intact Results - Imaging CT scan - abdomen: report reviewed, image reviewed Assessment and Plan (1) Calculus of kidney Status: Acute Code(s): N20.0 - CALCULUS OF KIDNEY SNOMED Code(s): 57123356 (2) Calculus of ureter Status: Acute Code(s): N20.1 - CALCULUS OF URETER SNOMED Code(s): 61186673 Plan: Cystoscopy, bilateral retrograde pyelogram, bilateral ureteroscopy with Holmium laser lithotripsy and stone basketing, bilateral ureteral stent insertion. The procedure has been reviewed in detail with the patient, who understands risks to include anesthesia, bleeding, infection, and ureteral injury. Given the stone burden on the right side, she is aware of the possible need for a secondary procedure.
[2023-10-07] MEDS: LACTATED RINGERS 1,000 ML IV ONE ×2 (07:30→11:05)
--- NOTE | 2023-10-07 07:39 | XR ---
EXAMINATION TYPE: XR KUB DATE OF EXAM: 10/07/2023 Comparison: 09/30/2023 Clinical History: 38-year-old female N20.1 left ureteral calculi / N20.0 right renal ca Findings: Cholecystectomy clips. Mild to moderate stool burden. Nonobstructive bowel gas pattern. The previous left ureteral stent has been removed. Similar elongated 2.7 x 1.1 cm calcification right paramedian mid abdomen. Impression: 1. Interval lateral of the left ureteral stent. 2. Similar elongated 2.7 x 1.1 cm right mid abdominal calcification.
[2023-10-07] MEDS: MIDAZOLAM 2 MG/2 ML VIAL IVP ONE (08:05)
[2023-10-07] MEDS: ONDANSETRON 4 MG/2 ML VIAL ONE (08:12)
[2023-10-07] MEDS: DEXAMETHASONE SOD PHOSPHATE 4 MG/ML 1 ML VIAL IVP ONE (08:13)
[2023-10-07 08:24] LABS: Anisocytosis Slight; Basophils % (A) 0 %; Eosinophils # (A) 0.1 k/uL (0-0.7); Eosinophils % (A) 1 %; HCT 30.5 % (34.0-46.0); HGB 9.2 gm/dL (11.4-16.0); Hypochromasia Marked; Lymphocytes # (A) 1.8 k/uL (1.0-4.8); Lymphocytes % (A) 27 %; MCH 22.5 pg (25.0-35.0); MCHC 30.1 g/dL (31.0-37.0); MCV 74.6 fL (80.0-100.0); Mean Platelet Volume 7.6; Microcytosis Slight; Monocytes # (A) 0.4 k/uL (0-1.0); Monocytes % (A) 5 %; Neutrophils # (A) 4.3 k/uL (1.3-7.7); Neutrophils % (A) 64 %; Platelet Count 373 k/uL (150-450); RBC 4.09 m/uL (3.80-5.40); WBC 6.7 k/uL (3.8-10.6)
[2023-10-07 08:39] LABS: African American GFR (CKD) 69 (>60 ml/min/1.73 sqM); Anion Gap 10 mmol/L; Blood Urea Nitrogen 18 mg/dL (7-17); Calcium 8.8 mg/dL (8.4-10.2); Carbon Dioxide 25 mmol/L (22-30); Chloride 106 mmol/L (98-107); Glucose 98 mg/dL (74-99); Non-African American GFR(CKD) 60 (>60 ml/min/1.73 sqM); Potassium 3.4 mmol/L (3.5-5.1); Sodium 141 mmol/L (137-145)
[2023-10-07] MEDS ORDERED: PROPOFOL 10 MG/ML 20 ML VIAL IV ONE (09:42)
[2023-10-07] MEDS ORDERED: fentaNYL (PF) 50 MCG/ML 2 ML AMP ONE (09:42)
[2023-10-07] MEDS ORDERED: KETOROLAC 15 MG/ML 1 ML VIAL ONE (09:42)
[2023-10-07] MEDS ORDERED: LIDOCAINE 1% INJ 10MG/ML (20 ML MDV) ONE (09:42)
[2023-10-07] MEDS ORDERED: HYDROmorphone (PF) 1 MG/ML ONE (09:42)
[2023-10-07 11:55] VITALS: TEMP 97.4
--- NOTE | 2023-10-07 12:00 | P.OP ---
Date of Procedure: 10/07/23 Preoperative Diagnosis: Left ureteral calculi, bilateral renal calculi Postoperative Diagnosis: Same Procedure(s) Performed: Cystoscopy, bilateral ureteroscopy with Holmium laser lithotripsy and stone basketing, right ureteral stent insertion Anesthesia: BRETTA Surgeon: Jean Carlos Nj Estimated Blood Loss (ml): 10 IV fluids (ml): 700 Pathology: none sent Condition: stable Disposition: PACU Indications for Procedure: The patient is a 37-year-old female with a history of urolithiasis. She underwent ureteroscopic removal of a left ureteral calculus and left renal calculi in November 2018. She presented to the ER in late June 2023 with left flank pain. Ultrasound showed evidence of bilateral renal calculi and hydronephrosis, mild on the right and moderate on the left. She was approximately 35 weeks , and ultimately underwent section. The CT scan showed mild to moderate left hydronephrosis due to a 13 mm left proximal ureteral calculus. Also seen was a 2.3 cm right upper pole calculus, with minimal right hydronephrosis. The patient wa symptomatic on the left side. She underwent ureteroscopic removal of the left proximal ureteral calculus, which was very soft. Her left ureteral stent remained in place until recently, when she underwent complicated removal of her left ureteral stent. The proximal end of the stent was calcified, and lithotripsy was performed to enable removal of the stent. She presented to the ER that night and was found to have 2 left ureteral calculi. Operative Findings: 2 left ureteral calculi, successfully removed with stone basketing. 2 small left renal calculi, fragmented and removed via stone basketing. Large right upper pole renal calculus, partially fragmented. Description of Procedure: The patient was taken to the operating room and placed in the dorsolithotomy position, with legs supported in Jimmie stirrups. The external genitalia was prepped and draped sterilely. The 30 lens was used to introduce the 21-[place] cystoscopic sheath through the urethra and into the bladder under direct vision. The bladder was examined in its entirety. Both ureteral orifices were normal anatomic location and configuration, and clear urine effluxed from both. No tumors or foreign bodies were seen. The [place] [employer] mini flexible ureteroscope was advanced in the bladder, and the left ureteral orifice was cannulated. The ureteroscope was advanced under direct vision for several centimeters, at which point an area of narrowing was encountered through which the ureteroscope could not be advanced. Therefore, a 0.038 inch Glidewire was passed through the ureteroscope and up to the left renal pelvis. The ureteroscope was removed, and an 11/13-Kosovan ureteral access catheter was passed over the wire, up to the proximal ureter. The flexible ureteroscope was then passed through the ureteral access catheter sheath into the ureter under direct vision. 2 proximal ureteral calculi were seen measuring approximately 5 mm each. These were removed using a 1.9 Kosovan 0 tip nitinol basket. The ureteroscope was then advanced up to the renal pelvis, and each calyx was examined. 2 small calculi were seen, both of which appeared to be of calcium composition and adherent to the mucosa.. The 272 micron Holmium laser probe was passed through the ureteroscope, and lithotripsy was performed to fragment these calculi and separate them from the mucosa. They were then removed using the nitinol basket. As the ureteroscope was withdrawn, the ureter was inspected and there was no evidence of ureteral trauma. The ureteroscope was then moved to the right ureteral orifice, and the Glidewire was passed through the ureteroscope. The right ureteral orifice was cannulated, and the Glidewire was advanced up to the right renal pelvis. The ureteroscope was removed, and the 11/13 Kosovan ureteral access catheter was passed over the wire, up to the proximal ureter. The flexible ureteroscope was then passed through the ureteral access catheter sheath and up to the right renal pelvis. The calculus was seen within an upper pole calyx. Lithotripsy was performed in a way to break chunks of the calculus away, and these chunks were then removed using the nitinol basket. The calculus was soft and appeared to be of struvite composition. Over half of the calculus was removed, but visualization within the renal pelvis became impaired and the decision was made to terminate the procedure. The Glidewire was passed through the ureteroscope, which was withdrawn under direct vision. There was no evidence of ureteral trauma. The Glidewire was backloaded into the cystoscope, which was passed into the bladder. A 24 cm, 6 Kosovan double-J ureteral stent was placed over the wire. Proper stent positioning was verified fluoroscopically and endoscopically. The bladder was emptied and the cystoscope removed. The patient tolerated the procedure well and was taken to the recovery room in stable condition. MUSIC ROCKS Report: Procedure Acuity: Semi-Urgent Stone Size and Location: Left ureteral calculi measuring up to 5 mm in size. Right upper pole renal calculus measuring 22 mm in length. Ureteral Dilation: No Ureteral Access Sheath Used: Yes Stone Sent for Analysis: No All Stones/Fragments Were Removed with a Basket: No Complications: No Preoperative Antibiotics Given: Yes Stent Placed: Yes If Stent Placed, Was String Left Attached: No If Stent Placed, When is it to be Removed: 2 weeks Discharge Medications: [place]
--- NOTE | 2023-10-07 12:19 | FL ---
EXAMINATION TYPE: FL guidance operating room DATE OF EXAM: 10/07/2023 Comparison: None Clinical History: 38-year-old female CYSTO LITHO Findings: FLUORO TIME: 51 SEC, DAP: 0.57380 Gycm2. No images provided. Impression: Fluoroscopy for urology procedure as above.
[2023-10-07 12:58] VITALS: RESP 16
[2023-10-07 14:00] VITALS: BP 139/81; PULSE 84
== END 2023-10-07 13:41 | disposition home or self-care (01) ==
LOC: OR 06:51
PROVIDERS: ATTEND Urology
DX: N20.2 Calculus of kidney with calculus of ureter (principal); Z87.440 Personal history of urinary (tract) infections; Z87.891 Personal history of nicotine dependence
CPT/HCPCS: 81025; 80048; 85025; 74018; 52356; 52353; C2625; C1769; J2250; J1100; J0690; J2405; J2001; J3010; J1170; J1885; J2704

== ENCOUNTER 2023-10-19 10:22 | Day surgery (SDC) | payer OTHER ==
--- NOTE | 2023-10-19 09:24 | P.HPIHPCON ---
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 She does have a history of a struvite stone. Option of a right-sided PCNL was discussed with her. Aware the risk which includes but not limited to bleeding, infection, injury to nearby organs including the bowel, lung, liver. Risk of residual stones were also discussed with her. Risk of anesthesia was also discussed with her in details. She understood all the risk and agreed to proceed with a right-sided PCNL Consent for Procedure: I have explained the operation/procedure to the patient, including the risks, benefits, side effects, alternative therapies (including not receiving the proposed treatment or service), the likelihood of the patient achieving his/her goals, and potential recuperation problems for the procedure/sedation/analgesia, as well as any blood products, if indicated. I also explained to the patient the risks, benefits and side effects of the alternatives, as well as the risks related to not receiving the proposed procedure, care, treatment, or services. Past Medical History Past Medical History: No Reported History Additional Past Medical History / Comment(s): Current UTI. 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 Anemia, insomnia History of Any Multi-Drug Resistant Organisms: None Reported Past Surgical History: Bladder Surgery, Section, Cholecystectomy Additional Past Surgical History / Comment(s): cystoscopy, lithotripsy with stent Past Anesthesia/Blood Transfusion Reactions: No Reported Reaction Smoking Status: Former smoker, Light tobacco smoker - Past Family History Mother Family Medical History: No Reported History Medications and Allergies Home Medications Medication Instructions Recorded Confirmed Type Ciprofloxacin HCl [Cipro] 250 mg PO QAM 10/18/23 10/18/23 History Allergies Allergy/AdvReac Type Severity Reaction Status Date / Time No Known Allergies Allergy Verified 10/18/23 15:37 Surgical - Exam - General no distress, moderate pain - Eyes normal ocular movement, no pale - ENT normal nares, normal mucosa - Respiratory normal expansion, normal respiratory effort - Abdomen Abdomen: soft, non tender, no distended - Psychiatric oriented to time, oriented to person, oriented to place Assessment and Plan Assessment: OR for right-sided PCNL
[2023-10-19] MEDS: LACTATED RINGERS 1,000 ML IV SCH (10:53)
[2023-10-19 11:25] LABS: Anisocytosis Slight; Basophils % (A) 0 %; Eosinophils # (A) 0.2 k/uL (0-0.7); Eosinophils % (A) 3 %; HCT 31.1 % (34.0-46.0); HGB 9.3 gm/dL (11.4-16.0); Hypochromasia Marked; Lymphocytes # (A) 1.4 k/uL (1.0-4.8); Lymphocytes % (A) 25 %; MCH 22.1 pg (25.0-35.0); MCHC 29.8 g/dL (31.0-37.0); Mean Platelet Volume 7.4; Microcytosis Slight; Monocytes # (A) 0.3 k/uL (0-1.0); Monocytes % (A) 5 %; Neutrophils # (A) 3.6 k/uL (1.3-7.7); Neutrophils % (A) 63 %; Platelet Count 538 k/uL (150-450); RDW 16.8 % (11.5-15.5); WBC 5.7 k/uL (3.8-10.6)
[2023-10-19] MEDS: DEXAMETHASONE SOD PHOSPHATE 4 MG/ML 1 ML VIAL IV ONE (11:26)
[2023-10-19] MEDS: SCOPOLAMINE 1 MG/72 HR PATCH TRANSDERM ONE (11:26)
[2023-10-19] MEDS: ONDANSETRON 4 MG/2 ML VIAL IVP ONE (11:26)
[2023-10-19 11:39] LABS: African American GFR (CKD) 80 (>60 ml/min/1.73 sqM); Anion Gap 8 mmol/L; Blood Urea Nitrogen 19 mg/dL (7-17); Calcium 9.2 mg/dL (8.4-10.2); Carbon Dioxide 20 mmol/L (22-30); Chloride 112 mmol/L (98-107); Glucose 94 mg/dL (74-99); Non-African American GFR(CKD) 69 (>60 ml/min/1.73 sqM); Potassium 4.2 mmol/L (3.5-5.1); Sodium 140 mmol/L (137-145)
[2023-10-19] MEDS ORDERED: MAG HYDROX/AL HYDROX/SIMETH 30 ML CUP PO PRN (12:39)
[2023-10-19] MEDS ORDERED: ACETAMINOPHEN TAB 325 MG TAB PO PRN (12:39)
[2023-10-19] MEDS ORDERED: ONDANSETRON 4 MG/2 ML VIAL IVP PRN (12:39)
[2023-10-19] MEDS ORDERED: fentaNYL (PF) 50 MCG/ML 2 ML AMP ONE (12:41)
[2023-10-19] MEDS ORDERED: ROCURONIUM 10 MG/ML (5 ML VIAL) IV ONE (12:41)
[2023-10-19] MEDS ORDERED: LIDOCAINE 1% INJ 10MG/ML (20 ML MDV) ONE (12:41)
[2023-10-19] MEDS ORDERED: KETOROLAC 30 MG/ML 1 ML VIAL ONE (12:41)
[2023-10-19] MEDS ORDERED: GLYCOPYRROLATE 0.2 MG/ML 2 ML VIAL ONE (12:41)
[2023-10-19] MEDS ORDERED: HYDROmorphone (PF) 1 MG/ML ONE (12:41)
[2023-10-19] MEDS ORDERED: NEOSTIGMINE 1 MG/ML 10 ML VIAL ONE (12:41)
[2023-10-19] MEDS ORDERED: MIDAZOLAM 2 MG/2 ML VIAL ONE (12:41)
[2023-10-19] MEDS ORDERED: PROPOFOL 10 MG/ML 20 ML VIAL IV ONE (12:41)
[2023-10-19] MEDS ORDERED: SUCCINYLCHOLINE CHLORIDE 200 MG/10 ML VIAL IV ONE (12:41)
[2023-10-19] MEDS: IOPAMIDOL-370 50ML BTL MISCELLANE ONE (13:08)
--- NOTE | 2023-10-19 13:50 | P.PCN ---
Date of Procedure: 10/19/23 Preoperative Diagnosis: Partial staghorn calculus right Postoperative Diagnosis: Same Procedure(s) Performed: Percutaneous access to right lower pole calyx Anesthesia: KEEGAN Surgeon: Jameson Gutierrez Indications for Procedure: The patient is 38. She has a partial staghorn calculus on the right side. we will do percutaneous nephrostolithotomy on the right side. He has asked me to perform percutaneous access. Description of Procedure: The patient has been brought to the operating suite and given a general anesthetic on the [facility]. A right ureteral occluding balloon catheters placed by Dr. Roe. She's placed in a prone position with care to airways and extremities in a sterile prep and drape was administered. We filled the collecting system with air. A right lower pole posterior calyx was identified. I then pass a 21-gauge Chiba needle into this calyx. Through this needle I then pass a cope wire into the collecting system. I then removed the Chiba needle and pass a 6-Armenian dilating and access catheter into the collecting system. The inner catheters are removed and an 035 glide wires passed into the collecting system. The dilating catheters removed and over the wires and passed a Kumpe catheter into the collecting system so I can direct the wire down the ureter successfully. I advanced the Kumpe catheter over the wire into the right ureter. I then remove the 035 Lubriglide wire and pass an 035 Super Stiff wire into the right ureter. Over the superstiff wire I then pass an 8/10 dilating an exchange catheter. The 8 is removed and a second safety wires passed down the ureter. I removed the 10 catheter and over the working wire we dilate the tract to 30-Armenian. Dr. Roe proceed with a percutaneous nephrostolithotomy
[2023-10-19] MEDS: LACTATED RINGERS 1,000 ML IV ONE (14:39)
--- NOTE | 2023-10-19 14:43 | P.OP ---
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 She does have a history of a struvite stone. Option of a right-sided PCNL was discussed with her. Aware the risk which includes but not limited to bleeding, infection, injury to nearby organs including the bowel, lung, liver. Risk of residual stones were also discussed with her. Risk of anesthesia was also discussed with her in details. She understood all the risk and agreed to proceed with a right-sided PCNL Operative Findings: Large right-sided struvite stone in the upper pole, multiple small stones throughout the lower pole Description of Procedure: Patient brought the operating room, general anesthesia was induced on the stretcher. Next patient was prepped and draped on the stretcher legs were placed in a frog-leg position. Next the cystoscope was inserted per urethra, rigid cystoscopy was performed which showed no abnormality within the bladder, and the stent was grasped and removed to the meatus, the stent was visualized protruding from the right ureteral orifice, there was moderate amount of encrustation on the stent. Next a sensor wire was advanced through the stent and the stent was removed with the wire in place. Next a 8 [place] balloon occlusion catheter was passed over the wire. a 16 Fr malhotra catheter was placed with return of clear urine. At this point the patient was placed in prone position, all pressure points were padded. The right flank and the ureteral catheter were prepped in sterile fashion. Next access was obtained to the right lower pole by Dr. Gutierrez. Please see his portion of the procedure for that part of the surgery. After 2 wires were down the ureter at this point a 30 B[place]udian NephroMax balloon was advanced over the wire and under fluoroscopy, the tract was dilated under fluoroscopy. Next a 30 [place]ian access sheath was passed over the balloon and into the lower pole of the kidney. Next a rigid nephroscope was inserted through the sheath, renoscopy was performed showed multiple small stones that were grasped using the grasper. A large stone was visualized in the upper pole, I was able to partially break up the stone using the cyber wand, but given the angle of the stone at this point I switched to a flexible cystoscope. Flexible cystoscope was inserted through the access sheath, and minimal frag mentation of the stone was done given the struvite appearance. The stones were grasped using the 0 tip basket, repeat renoscopy showed no sizable fragments or injury to the kidney, on fluoroscopy there was no additional radiopaque densities visualized. Ureteroscopy of the proximal ureter was performed showed no stones. At this time antegrade nephrostogram was performed which showed no additional filling defects in the kidney and the contrast was draining down the ureter. At this point a 12 B[place]udian nephrostomy tube was placed over the wire location was confirmed to be within the renal pelvis on fluoroscopy. Repeat antegrade nephrostogram was performed which showed the nephrostomy tube to be in the correct location, there was no evidence of contrast extravasation or any filling defects. The medial portion of the incision was closed using 2-0 Vicryl, and the lateral portion of the incision was closed 2-0 silk and this was secured to the nephrostomy tube. The patient was awakened from anesthesia and taken to recovery in stable condition
[2023-10-19] MEDS: HYDROmorphone 0.5 MG/0.5 ML SYRINGE IVP PRN (15:29)
--- NOTE | 2023-10-19 16:41 | FL ---
EXAMINATION TYPE: FL Perc Nephrostomy New Access Intraoperative/procedural fluoroscopic services were provided. Total fluoroscopy time is 6 minutes with a total of 2 submitted images to PACS. Please see the operative/procedural note for further details. DAP: Not reported mGym2 Gycm2 uGym2 cGycm2
[2023-10-19] MEDS: HYDROcodone/APAP 5-325MG 1 EACH TAB PO PRN (17:20)
[2023-10-19] MEDS: KETOROLAC 15 MG/ML 1 ML VIAL IVP SCH (18:13)
[2023-10-19] MEDS: HYDROmorphone 1 MG/ML 1 ML SYRINGE IVP PRN (20:40)
[2023-10-19] MEDS: HEPARIN SODIUM,PORCINE 5,000 UNIT/ML 1 ML VIAL SQ SCH (20:43)
[2023-10-19] MEDS: DEXTROSE 5%-0.45% NACL 1,000 ML IV SCH (20:53)
[2023-10-19 23:25] VITALS: RESP 16
[2023-10-20 08:14] VITALS: BP 130/70; PULSE 73; TEMP 98.3
--- NOTE | 2023-10-20 08:21 | P.DS ---
Providers Attending physician: Cj Roe MD Primary care physician: Stated None Hospital Course: This is a 38-year-old female with history of right-sided renal stone, underwent a percutaneous nephrolithotomy on October 19. Patient was admitted to the hospital postoperatively. Please see op note dated October 19 for surgery details. Her catheter was removed on postop day #1. She was discharged home on postop day #1 with her nephrostomy tube. At time of discharge she was kitty ating a diet, ambulating, pain was controlled Plan - Discharge Summary Discharge Rx Participant: No New Discharge Prescriptions: New Ketorolac [Toradol] 10 mg PO Q6HR #15 tab HYDROcodone/APAP 10-325MG [[place] 10-325] 1 tab PO Q4HR PRN 3 Days #15 tab PRN Reason: Pain No Action Ciprofloxacin HCl [Cipro] 250 mg PO QAM Discharge Medication List Ciprofloxacin HCl [Cipro] 250 mg PO QAM 10/18/23 [History] HYDROcodone/APAP 10-325MG [[place] 10-325] 1 tab PO Q4HR PRN 3 Days #15 tab 10/20/23 [Rx] Ketorolac [Toradol] 10 mg PO Q6HR #15 tab 10/20/23 [Rx] Activity/Diet/Wound Care/Special Instructions: Increase your fluid intake It is normal to have blood in the urine Change the dressing around your nephrostomy tube as needed
[2023-10-20] MEDS: CIPROFLOXACIN HCL 250 MG TAB PO SCH (10:52)
== END 2023-10-20 14:54 | disposition home or self-care (01) ==
LOC: OR 10:22 → 4FBP 14:51 → OR 10-20 14:54
PROVIDERS: ATTEND Urology
DX: N20.0 Calculus of kidney (principal); Z90.49 Acquired absence of other specified parts of digestive tract; Z98.891 History of uterine scar from previous surgery; Z87.891 Personal history of nicotine dependence; Z79.899 Other long term (current) drug therapy
CPT/HCPCS: 81025; 86900; 86901; 80048; 85025; 86850; 82365; 50432; 50080; 52332; C2628; C1769 ×4; C1894; C1729; J1644 ×2; J1100; J0690; J2405; J1170 ×3; J1885 ×2; Q9967

== ENCOUNTER 2024-11-21 17:22 | Emergency (ER) | payer OTHER ==
[2024-11-21 17:35] VITALS: TEMP 98.1
--- NOTE | 2024-11-21 18:29 | ED ---
Abdominal Pain HPI - General Chief Complaint: Abdominal Pain Stated Complaint: ABD Pain Time Seen by Provider: 11/21/24 18:28 Source: patient, RN notes reviewed, old records reviewed Mode of arrival: ambulatory Limitations: no limitations - History of Present Illness Initial Comments: This is a 39-year-old female to the ER. This patient presents today for evaluation regards to abdominal pain severe right-sided t-sided abdominal pain flank pain radiating to groin radiating to back. No fevers mild nausea no vomiting no travel no sick contacts no history of significant abdominal surgeries there is right flank pain with voiding and frequency MD Complaint: abdominal pain -: days(s) Location: RLQ Radiation: RLQ Migration to: RLQ, R flank Severity scale (1-10): 7 Quality: fullness Consistency: constant Improves With: nothing Worsens With: nothing Associated Symptoms: nausea - Related Data Home Medications Medication Instructions Recorded Confirmed Ciprofloxacin HCl [Cipro] 250 mg PO QAM 10/18/23 10/19/23 Previous Rx's Medication Instructions Recorded HYDROcodone/APAP 10-325MG [[place] 1 tab PO Q4HR PRN 3 Days #15 tab 10/20/23 10-325] Ketorolac [Toradol] 10 mg PO Q6HR #15 tab 10/20/23 Cephalexin [Keflex] 500 mg PO TID #42 cap 11/21/24 Ondansetron Odt [Zofran ODT] 4 mg PO Q8HR PRN #30 tab 11/21/24 Allergies Allergy/AdvReac Type Severity Reaction Status Date / Time No Known Allergies Allergy Verified 10/19/23 10:55 Review of Systems ROS Statement: Those systems with pertinent positive or pertinent negative responses have been documented in the HPI. ROS Other: All systems not noted in ROS Statement are negative. Past Medical History Past Medical History: No Reported History Additional Past Medical History / Comment(s): Current UTI. 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 Anemia, insomnia History of Any Multi-Drug Resistant Organisms: None Reported Past Surgical History: Bladder Surgery, Section, Cholecystectomy Additional Past Surgical History / Comment(s): cystoscopy, lithotripsy with stent Past Anesthesia/Blood Transfusion Reactions: No Reported Reaction Past Psychological History: No Psychological Hx Reported Smoking Status: Never smoker Past Alcohol Use History: None Reported Past Drug Use History: None Reported - Past Family History Mother Family Medical History: No Reported History General Exam Limitations: no limitations General appearance: alert, in no apparent distress Head exam: Present: atraumatic, normocephalic, normal inspection Eye exam: Present: normal appearance, PERRL, EOMI. Absent: scleral icterus, conjunctival injection, periorbital swelling ENT exam: Present: normal exam, mucous membranes moist Neck exam: Present: normal inspection. Absent: tenderness, meningismus, lymphadenopathy Respiratory exam: Present: normal lung sounds bilaterally. Absent: respiratory distress, wheezes, rales, rhonchi, stridor Cardiovascular Exam: Present: normal rhythm, tachycardia, normal heart sounds. Absent: systolic murmur, diastolic murmur, rubs, gallop, clicks GI/Abdominal exam: Present: soft, normal bowel sounds. Absent: distended, tenderness, guarding, rebound, rigid Extremities exam: Present: normal inspection, full ROM, normal capillary refill. Absent: tenderness, pedal edema, joint swelling, calf tenderness Back exam: Present: normal inspection Neurological exam: Present: alert, oriented X3, CN II-XII intact Psychiatric exam: Present: normal affect, normal mood Skin exam: Present: warm, dry, intact, normal color. Absent: rash Course Vital Signs 11/21/24 11/21/24 11/21/24 17:34 18:33 21:37 Temperature 98.1 F Pulse Rate 127 H 110 H 103 H Respiratory 20 16 17 Rate Blood Pressure 137/85 139/92 127/78 O2 Sat by Pulse 100 99 100 Oximetry - Reevaluation(s) Reevaluation #1: 11/21/24 20:09 Records reviewed Reevaluation #2: 11/21/24 20:09 Patient abdominal pain is improved Reevaluation #3: 11/21/24 20:09 Informed of results and questions answered Reevaluation #4: Was pt. sent in by a medical professional or institution (, PA, ROAD ROLLER ENGINEER, urgent care, hospital, or care home...) When possible be specific @ -no Did you speak to anyone other than the patient for history (EMS, parent, family, police, friend...)? What history was obtained from this source @ -no Did you review nursing and triage notes (agree or disagree)? Why? @ -agree Are old charts reviewed (outside hosp., previous admission, EMS record, old EKG, old radiological studies, urgent care reports/EKG's, care home records)? Report findings @ -yes Differential Diagnosis (chest pain, altered mental status, abdominal pain women, abdominal pain men, vaginal bleeding, weakness, fever, dyspnea, syncope, hea dache, dizziness, GI bleed, back pain, seizure, CVA, palpatations, mental health, musculoskeletal)? @ -prior EKG interpreted by me (3pts min.). @ -no X-rays interpreted by me (1pt min.). @ -no CT interpreted by me (1pt min.). @ -yes Positive for pyelonephritis U/S interpreted by me (1pt. min.). @ -no What testing was considered but not performed or refused? (CT, X-rays, U/S, labs)? Why? @ -none What meds were considered but not given or refused? Why? @ -none Did you discuss the management of the patient with other professionals (professionals i.e. , PA, ROAD ROLLER ENGINEER, lab, RT, psych nurse, social welfare clerk, adventure guide, teacher, youth officer, case planner)? Give summary @ -no Was smoking cessation discussed for >3mins.? @ -no Was critical care preformed (if so, how long)? @ -no Were there social determinants of health that impacted care today? How? (Homelessness, low income, unemployed, alcoholism, drug addiction, transportation, low edu. Level, literacy, decrease access to med. care, skilled nursing, rehab)? @ -none Was there de-escalation of care discussed even if they declined (Discuss DNR or withdrawal of care, Hospice)? DNR status @ -no What co-morbidities impacted this encounter? (DM, HTN, Smoking, COPD, CAD, Cancer, CVA, ARF, Chemo, Hep., AIDS, mental health diagnosis, sleep apnea, mo rbid obesity)? @ -none Was patient admitted / discharged? Hospital course, mention meds given and r oute, prescriptions, significant lab abnormalities, going to OR and other pertinent info. @ - 39 female with acute pyelonephritis left left kidney left flank. Patient given medications and IV medications IV fluid patient will be discharged home able to take oral medication Discharged Undiagnosed new problem with uncertain prognosis? @ -no Drug Therapy requiring intensive monitoring for toxicity (Heparin, Nitro, Insulin, Cardizem)? @ -no Were any procedures done? @ -no Diagnosis/symptom? @Nephritis Acute, or Chronic, or Acute on Chronic? @ -Acute Uncomplicated (without systemic symptoms) or Complicated (systemic symptoms)? @ -Complicated Side effects of treatment? @ -no Exacerbation, Progression, or Severe Exacerbation? @ -exacerbation Poses a threat to life or bodily function? How? (Chest pain, USA, SD, pneumonia, PE, COPD, DKA, ARF, appy, cholecystitis, CVA, Diverticulitis, Homicidal, Suicidal, threat to staff... and all critical care pts) @ -yes acute infection Reevaluation #5: Differential Abdominal Pain Women: Appendicitis, Cholecystitis, diverticulosis, ischemic bowel, pancreatitis, hepatitis, UTI, gastroenteritis, AAA, incarcerated hernia, bowel obstruction, constipation, inflammatory bowel, hepatitis, peptic ulcer disease, splenic infar ction, perforated viscus, vulvitis, ovarian torsion, PID, kidney stone, placenta abruption, this is not meant to be an all-inclusive list Medical Decision Making - Medical Decision Making 39 female with acute pyelonephritis left left kidney left flank. Patient given medications and IV medications IV fluid patient will be discharged home able to take oral medication - Lab Data Result diagrams: 11/21/24 18:27 11/21/24 18:32 Lab Results 11/21/24 11/21/24 11/21/24 Range/Units 18:27 18:32 18:32 WBC 16.6 H (3.8-10.6) k/uL RBC 5.02 (3.80-5.40) m/uL Hgb 13.0 (11.4-16.0) gm/dL Hct 41.1 (34.0-46.0) % MCV 81.9 (80.0-100.0) fL MCH 25.9 (25.0-35.0) pg MCHC 31.6 (31.0-37.0) g/dL RDW 16.6 H (11.5-15.5) % Plt Count 197 (150-450) k/uL MPV 7.7 Neutrophils % 92 % Lymphocytes % 3 % Monocytes % 4 % Eosinophils % 1 % Basophils % 0 % Neutrophils # 15.3 H (1.3-7.7) k/uL Lymphocytes # 0.4 L (1.0-4.8) k/uL Monocytes # 0.6 (0-1.0) k/uL Eosinophils # 0.1 (0-0.7) k/uL Basophils # 0.0 (0-0.2) k/uL Hypochromasia Slight Anisocytosis Slight Sodium 131 L (137-145) mmol/L Potassium 3.6 (3.5-5.1) mmol/L Chloride 99 (98-107) mmol/L Carbon Dioxide 22 (22-30) mmol/L Anion Gap 10 mmol/L BUN 15 (7-17) mg/dL Creatinine 1.26 H (0.52-1.04) mg/dL Est GFR (CKD-EPI)AfAm 61 (>60 ml/min/1.73 sqM) Est GFR (CKD-EPI)NonAf 53 (>60 ml/min/1.73 sqM) Glucose 118 H (74-99) mg/dL Plasma Lactic Acid Gal 0.8 (0.7-2.0) mmol/L Calcium 8.7 (8.4-10.2) mg/dL Phosphorus 3.4 (2.5-4.5) mg/dL Magnesium 1.9 (1.6-2.3) mg/dL Total Bilirubin 1.0 (0.2-1.3) mg/dL AST 26 (14-36) U/L ALT 33 (4-34) U/L Alkaline Phosphatase 119 (38-126) U/L Total Protein 7.0 (6.3-8.2) g/dL Albumin 4.1 (3.5-5.0) g/dL Amylase 34 (30-110) U/L Lipase 19 L (23-300) U/L HCG, Quant <2.4 mIU/mL Urine Color Urine Appearance (Clear) Urine pH (5.0-8.0) Ur Specific [place] (1.001-1.035) Urine Protein (Negative) Urine Glucose (UA) (Negative) Urine Ketones (Negative) Urine Blood (Negative) Urine Nitrite (Negative) Urine Bilirubin (Negative) Urine Urobilinogen (<2.0) mg/dL Ur Leukocyte Esterase (Negative) Urine RBC (0-5) /hpf Urine WBC (0-5) /hpf Urine WBC Clumps (None) /hpf Ur Squamous Epith Cells (0-4) /hpf Urine Bacteria (None) /hpf Urine Mucus (None) /hpf 11/21/24 Range/Units 20:01 WBC (3.8-10.6) k/uL RBC (3.80-5.40) m/uL Hgb (11.4-16.0) gm/dL Hct (34.0-46.0) % MCV (80.0-100.0) fL MCH (25.0-35.0) pg MCHC (31.0-37.0) g/dL RDW (11.5-15.5) % Plt Count (150-450) k/uL MPV Neutrophils % % Lymphocytes % % Monocytes % % Eosinophils % % Basophils % % Neutrophils # (1.3-7.7) k/uL Lymphocytes # (1.0-4.8) k/uL Monocytes # (0-1.0) k/uL Eosinophils # (0-0.7) k/uL Basophils # (0-0.2) k/uL Hypochromasia Anisocytosis Sodium (137-145) mmol/L Potassium (3.5-5.1) mmol/L Chloride (98-107) mmol/L Carbon Dioxide (22-30) mmol/L Anion Gap mmol/L BUN (7-17) mg/dL Creatinine (0.52-1.04) mg/dL Est GFR (CKD-EPI)AfAm (>60 ml/min/1.73 sqM) Est GFR (CKD-EPI)NonAf (>60 ml/min/1.73 sqM) Glucose (74-99) mg/dL Plasma Lactic Acid Gal (0.7-2.0) mmol/L Calcium (8.4-10.2) mg/dL Phosphorus (2.5-4.5) mg/dL Magnesium (1.6-2.3) mg/dL Total Bilirubin (0.2-1.3) mg/dL AST (14-36) U/L ALT (4-34) U/L Alkaline Phosphatase (38-126) U/L Total Protein (6.3-8.2) g/dL Albumin (3.5-5.0) g/dL Amylase (30-110) U/L Lipase (23-300) U/L HCG, Quant mIU/mL Urine Color Yellow Urine Appearance Turbid H (Clear) Urine pH 7.0 (5.0-8.0) Ur Specific [place] 1.012 (1.001-1.035) Urine Protein 2+ H (Negative) Urine Glucose (UA) Negative (Negative) Urine Ketones Trace H (Negative) Urine Blood Moderate H (Negative) Urine Nitrite Positive H (Negative) Urine Bilirubin Negative (Negative) Urine Urobilinogen 2.0 (<2.0) mg/dL Ur Leukocyte Esterase Large H (Negative) Urine RBC 9 H (0-5) /hpf Urine WBC >182 H (0-5) /hpf Urine WBC Clumps Many H (None) /hpf Ur Squamous Epith Cells 52 H (0-4) /hpf Urine Bacteria Many H (None) /hpf Urine Mucus Rare H (None) /hpf - Radiology Data Radiology results: report reviewed (CT abdomen pelvis positive for pyelonephritis), image reviewed Disposition Clinical Impression: Pyelonephritis of right kidney Disposition: HOME SELF-CARE Condition: Good Instructions (If sedation given, give patient instructions): Kidney Infection (ED) Prescriptions: Cephalexin [Keflex] 500 mg PO TID #42 cap Ondansetron Odt [Zofran ODT] 4 mg PO Q8HR PRN #30 tab PRN Reason: nausea/vomiting Is patient prescribed a controlled substance at d/c from ED?: No Referrals: None,Stated [Primary Care Provider] - 1-2 days Time of Disposition: 20:30
[2024-11-21] MEDS: MORPHINE SULFATE 4 MG/ML SYRINGE IV STA (18:37)
[2024-11-21] MEDS: SODIUM CHLORIDE 0.9% 1,000 ML IV ONE (18:37)
[2024-11-21] MEDS: ONDANSETRON 4 MG/2 ML VIAL IVP STA (18:39)
[2024-11-21 18:51] LABS: ALT 33 U/L (4-34); AST 26 U/L (14-36); African American GFR (CKD) 61 (>60 ml/min/1.73 sqM); Albumin 4.1 g/dL (3.5-5.0); Alkaline Phosphatase 119 U/L (38-126); Amylase 34 U/L (30-110); Anion Gap 10 mmol/L; Blood Urea Nitrogen 15 mg/dL (7-17); Calcium 8.7 mg/dL (8.4-10.2); Carbon Dioxide 22 mmol/L (22-30); Chloride 99 mmol/L (98-107); Glucose 118 mg/dL (74-99); Lipase 19 U/L (23-300); Magnesium 1.9 mg/dL (1.6-2.3); Non-African American GFR(CKD) 53 (>60 ml/min/1.73 sqM); Phosphorus 3.4 mg/dL (2.5-4.5); Potassium 3.6 mmol/L (3.5-5.1); Sodium 131 mmol/L (137-145)
[2024-11-21 18:57] LABS: Anisocytosis Slight; Basophils % (A) 0 %; Eosinophils # (A) 0.1 k/uL (0-0.7); Eosinophils % (A) 1 %; HCT 41.1 % (34.0-46.0); Hypochromasia Slight; Lymphocytes # (A) 0.4 k/uL (1.0-4.8); Lymphocytes % (A) 3 %; MCH 25.9 pg (25.0-35.0); MCHC 31.6 g/dL (31.0-37.0); MCV 81.9 fL (80.0-100.0); Mean Platelet Volume 7.7; Monocytes # (A) 0.6 k/uL (0-1.0); Monocytes % (A) 4 %; Neutrophils # (A) 15.3 k/uL (1.3-7.7); Neutrophils % (A) 92 %; Platelet Count 197 k/uL (150-450); RBC 5.02 m/uL (3.80-5.40); RDW 16.6 % (11.5-15.5); WBC 16.6 k/uL (3.8-10.6)
[2024-11-21 19:05] LABS: HCG,Quantitative Serum <2.4 mIU/mL
[2024-11-21] MEDS: KETOROLAC 15 MG/ML 1 ML VIAL IVP STA (19:28)
[2024-11-21] MEDS: SODIUM CHLORIDE 0.9% 1,000 ML IV SCH (19:30)
--- NOTE | 2024-11-21 20:12 | CT ---
EXAMINATION TYPE: CT abdomen pelvis wo con DATE OF EXAM: 11/21/2024 7:26 PM COMPARISON: CT abdomen pelvis most recent from 10/01/2023 CLINICAL INDICATION: Female, 39 years old with history of pain; right flank pain TECHNIQUE: Axial CT abdomen pelvis wo con;Sagittal and coronal reformats were created on a separate workstation. Contrast used: mL of , (none if empty) Oral contrast used: without Oral Contrast (none if empty) CT DLP: 449.2 mGycm, Automated exposure control for dose reduction was used. FINDINGS: LOWER CHEST: Unremarkable ABDOMEN LIVER: Unremarkable GALLBLADDER AND BILE DUCTS: Unremarkable. PANCREAS: Unremarkable. SPLEEN: Unremarkable. ADRENAL GLANDS: Unremarkable. KIDNEYS AND URETERS: No evidence recommend bilateral renal calculi measuring up to 5 mm in the right and 9 mm on the left. PELVIS BLADDER: Few foci of gas are seen in the nondependent portion of the bladder. REPRODUCTIVE: Unremarkable. ABDOMEN & PELVIS STOMACH AND BOWEL: No evidence of bowel obstruction. The appendix is visualized and normal. PERITONEUM/RETROPERITONEUM: No evidence of pneumoperitoneum or free fluid. VASCULATURE: No evidence of aortic aneurysm. MUSCULOSKELETAL: No acute osseous abnormalities LYMPH NODES: No gross evidence for lymphadenopathy. SOFT TISSUE/ABDOMINAL WALL: Unremarkable IMPRESSION: 1. Perinephric fat stranding around the right kidney, no obstructing calculus definitively visualize d. No significant dilation of the collecting system. Correlate for recently passed stone. 2. Bilateral nonobstructing renal calculi. 3. Gas in the nondependent portion of the urinary bladder, correlate for recent instrumentation. Cor relate with urinalysis for cystitis. [facility], , 11/21/2024 8:10 PM
[2024-11-21 20:32] LABS: Appearance,Urine Turbid (Clear); Bacteria,Urine Many /hpf; Bilirubin,Urine Negative (Negative); Blood,Urine Moderate (Negative); Color,Urine Yellow; Glucose,Urine (UA) Negative (Negative); Ketones,Urine Trace (Negative); Leukocyte Esterase,Urine Large (Negative); Mucus,Urine Rare /hpf; Nitrite,Urine Positive (Negative); Protein,Urine 2+ (Negative); RBC,Urine 9 /hpf (0-5); Specific Gravity,Urine 1.012 (1.001-1.035); Squamous Epithelial Cell,Urine 52 /hpf (0-4); WBC,Urine >182 /hpf (0-5)
[2024-11-21] MEDS: traMADol 50 MG STARTER PACK 3 TAB BTL PO STA (21:33)
[2024-11-21] MEDS: CEPHALEXIN 500MG STARTER PACK 4 CAP BTL PO STA (21:34)
[2024-11-21] MEDS: ONDANSETRON 4 MG ODT STARTER PACK 2 TAB BTL PO STA (21:34)
[2024-11-21 21:39] VITALS: BP 127/78; PULSE 103; RESP 17
== END 2024-11-21 21:38 | disposition home or self-care (01) ==
LOC: EC 17:22
DX: N12 Tubulo-interstitial nephritis, not specified as acute or chronic (principal)
CPT/HCPCS: 36415; 80053; 82150; 83605; 83690; 83735; 84100; 85025; 81001; 84702; 87086; 87077; 87186; 74176; 99284; 96365; 96375 ×3; 96361 ×2; J2270; J2405; J0696; J1885; S0119